=== PATIENT | male | born 1990 | race Two or more races ===

== ENCOUNTER 2020-12-15 17:24 | Inpatient (IN) | payer OTHER ==
[~2020-12-15] VITALS: Ht 182.9 cm; Wt 77.1 kg
[2020-12-15] MEDS ORDERED: Omnipaque-300 100ml vial INJ PRN (18:15)
[2020-12-15] MEDS ORDERED: Morphine Sulfate 4mg/ml Inj (IV USE ONLY) IVP ONE (18:15)
[2020-12-15] MEDS ORDERED: Ketorolac 30mg Inj IV ONE (18:15)
[2020-12-15 18:33] LABS: BASOPHILS % (AUTO) 1.7 % (0.0-2.0); EOSINOPHILS % (AUTO) 3.2 % (0.0-3.0); HEMATOCRIT 27.2 % (42.0-52.0); HEMOGLOBIN 9.2 G/DL (14.2-18.0); LYMPHOCYTES % (AUTO) 17.9 % (20.0-45.0); MEAN CORPUSCULAR VOLUME 105 FL (80-99); MONOCYTES % (AUTO) 7.9 % (1.0-10.0); NEUTROPHILS % (AUTO) 69.3 % (45.0-75.0); PLATELET COUNT 156 K/UL (150-450); RED BLOOD COUNT 2.59 M/UL (4.70-6.10); RED CELL DISTRIBUTION WIDTH 15.3 % (11.6-14.8); WHITE BLOOD COUNT 5.9 K/UL (4.8-10.8)
[2020-12-15 18:42] VITALS: BP 125/79
[2020-12-15 18:52] LABS: ANION GAP 8 mmol/L (5-15); BLOOD UREA NITROGEN 15 mg/dL (7-18); CALCIUM 8.3 MG/DL (8.5-10.1); CARBON DIOXIDE 23 MMOL/L (21-32); CHLORIDE 110 MMOL/L (98-107); CREATININE 0.8 MG/DL (0.55-1.30); POTASSIUM 3.9 MMOL/L (3.5-5.1); SODIUM 141 MMOL/L (136-145)
--- NOTE | 2020-12-15 18:58 | NUR ---
ED Nurse Note: [id number]: pt resting in bed, medicated, labs sent. rn requested urine 3x, pt unable to provide. urinal at bedside. pt pain decreased, comfort increased, lights diminished, blanket application. pt on continuous monitor. will continue to monitor.
[2020-12-15 19:02] LABS: ALANINE AMINOTRANSFERASE 34 U/L (12-78); ALBUMIN 2.4 G/DL (3.4-5.0); ALBUMIN/GLOBULIN RATIO 0.4 (1.0-2.7); ALKALINE PHOSPHATASE 125 U/L (46-116); ASPARTATE AMINO TRANSFERASE 75 U/L (15-37)
--- NOTE | 2020-12-15 19:15 | NUR ---
ED Nurse Note: Received report from DELIA Diaz. Pt to CT and back to room during report. Urine sample obtained. Pt denies any needs at this time.
--- NOTE | 2020-12-15 19:22 | Emergency Room Report ---
History of Present Illness General Chief Complaint: Abdominal Pain Source: Patient Present Illness HPI 30-year-old male presents for abdominal pain. X2 days. Pain is 8 out of 10, dull, nonradiating. Denies chest pain or shortness of breath. States he has had pancreatitis in the past and may have a stent in his either liver or gallbladder not sure. Was recently hospitalized in [place] for this. Denies fe vers or chills. No other aggravating relieving factors. 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 Patient History Past Medical History: other - Pancreatitis Past Surgical History: none Pertinent Family History: none Social History: Reports: alcohol use; Denies: smoking, drug use Immunizations: UTD Reviewed Nursing Documentation: PMH: Agreed; PSxH: Agreed Nursing Documentation-PMH Past Medical History: No History, Except For Review of Systems All Other Systems: negative except mentioned in HPI Physical Exam Vital Signs Date Time Temp Pulse Resp B/P (MAP) Pulse Ox O2 Delivery O2 Flow Rate FiO2 12/15/20 17:39 98.2 91 20 137/84 (101) 98 Room Air 12/15/20 18:09 100 Sp02 EP Interpretation: reviewed, normal General Appearance: no apparent distress, alert, GCS 15, non-toxic Head: normocephalic, atraumatic Eyes: bilateral eye normal inspection, bilateral eye PERRL ENT: hearing grossly normal, normal pharynx, no angioedema, normal voice Neck: full range of motion, supple/symm/no masses Respiratory: chest non-tender, lungs clear, normal breath sounds, speaking full sentences Cardiovascular #1: regular rate, rhythm, no edema Cardiovascular #2: 2+ carotid (R), 2+ carotid (L), 2+ radial (R), 2+ radial (L), 2+ dorsalis pedis (R), 2+ dorsalis pedis (L) Gastrointestinal: normal bowel sounds, soft, non-distended, guarding, tenderness Rectal: deferred Genitourinary: normal inspection, no CVA tenderness Musculoskeletal: back normal, normal range of motion, gait/station normal, non- tender Neurologic: alert, motor strength/tone normal, oriented x3, sensory intact, responsive, speech normal Psychiatric: judgement/insight normal, memory normal, mood/affect normal, no suicidal/homicidal ideation Reflexes: 3+ bicep (R), 3+ bicep (L), 3+ tricep (R), 3+ tricep (L), 3+ knee (R), 3+ knee (L) Skin: no rash Lymphatic: no adenopathy Medical Decision Making Diagnostic Impression: Primary Impression: Pancreatitis Qualified Codes: K85.90 - Acute pancreatitis without necrosis or infection, unspecified ER Course Hospital Course 30-year-old male presents to ED with abdominal pain Differential diagnoses include: BPH, cystitis, pyelonephritis, kidney stone Clinical course Patient placed on stretcher. potline monitor. After initial history and physical I ordered labs, IV fluids, UA, pain medication and CT scan Labs - no leukocytosis, Hb/Hct stable. electrolytes ok. Lipase > 2000, AST/ALT elevated. CT abdomen and pelvis - pancreatitis with pseudocyst Case discussed with Dr. Lott and he agreed to accept the patient to his service for further care and support I feel this is a highly complex case requiring extensive working including EKG/Rhythm strip, Xray/CT/US, Blood/urine lab work, repeat exams while in ED, and administration of strong opiates/narcotics for pain control, admission to hospital or close patient follow up. Diagnosis - pancreatitis Patient admitted to floor in serious condition Laboratory Tests Test 12/15/20 18:12 White Blood Count 5.9 K/UL (4.8-10.8) Red Blood Count 2.59 M/UL (4.70-6.10) L Hemoglobin 9.2 G/DL (14.2-18.0) L Hematocrit 27.2 % (42.0-52.0) L Mean Corpuscular Volume 105 FL (80-99) H Mean Corpuscular Hemoglobin 35.4 PG (27.0-31.0) H Mean Corpuscular Hemoglobin Concent 33.8 G/DL (32.0-36.0) Red Cell Distribution Width 15.3 % (11.6-14.8) H Platelet Count 156 K/UL (150-450) Mean Platelet Volume 6.5 FL (6.5-10.1) Neutrophils (%) (Auto) 69.3 % (45.0-75.0) Lymphocytes (%) (Auto) 17.9 % (20.0-45.0) L Monocytes (%) (Auto) 7.9 % (1.0-10.0) Eosinophils (%) (Auto) 3.2 % (0.0-3.0) H Basophils (%) (Auto) 1.7 % (0.0-2.0) Sodium Level 141 MMOL/L (136-145) Potassium Level 3.9 MMOL/L (3.5-5.1) Chloride Level 110 MMOL/L (98-107) H Carbon Dioxide Level 23 MMOL/L (21-32) Anion Gap 8 mmol/L (5-15) Blood Urea Nitrogen 15 mg/dL (7-18) Creatinine 0.8 MG/DL (0.55-1.30) Estimat Glomerular Filtration Rate > 60 mL/min (>60) Glucose Level 118 MG/DL (74-106) H Calcium Level 8.3 MG/DL (8.5-10.1) L Total Bilirubin 7.0 MG/DL (0.2-1.0) H Direct Bilirubin 5.0 MG/DL (0.0-0.3) H Aspartate Amino Transf (AST/SGOT) 75 U/L (15-37) H Alanine Aminotransferase (ALT/SGPT) 34 U/L (12-78) Alkaline Phosphatase 125 U/L (46-116) H Total Protein 7.8 G/DL (6.4-8.2) Albumin 2.4 G/DL (3.4-5.0) L Globulin 5.4 g/dL Albumin/Globulin Ratio 0.4 (1.0-2.7) L Lipase 2610 U/L (73-393) H CT/MRI/US Diagnostic Results CT/MRI/US Diagnostic Results : Imaging Test Ordered: CT A/P Impression Procedure: CT Abdomen Pelvis w/Contrast EXAM: CT Abdomen and Pelvis With Intravenous Contrast CLINICAL HISTORY: ABD PAIN TECHNIQUE: Axial computed tomography images of the abdomen and pelvis with intravenous contrast. CTDI is 5.4 mGy and DLP is 313 mGy-cm. One or more of the following dose reduction techniques were used: automated exposure control, adjustment of the mA and/or kV according to patient size, use of iterative reconstruction technique. COMPARISON: No previous studies. FINDINGS: Lung bases: Presumed subsegmental atelectasis at the lung bases. Pleural space: Moderate to large bilateral pleural effusions of uncertain etiology appeared Heart: Mild cardiomegaly. ABDOMEN: Liver: Fatty liver. Findings of portal hypertension. Gallbladder and bile ducts: There is diffuse wall thickening of the gallbladder best seen on axial image 33. No calcified stones. No ductal dilation. Pancreas: There is a 6.5 x 0.4 x 7.1 cm cystic lesion arising from the tail of the pancreas. Cystic neoplasm of the pancreas cannot be excluded. Other etiologies to consider her includes pseudocyst. Dilatation of the pancreatic duct best seen on series 5 image 31. Spleen: Splenomegaly. Adrenals: The adrenal glands are unremarkable. Kidneys and ureters: Both kidneys are shown to excrete contrast bilaterally without hydronephrosis appeared Nonspecific stranding about the perinephric spaces. Stomach and bowel: Moderate quantity of ingested material in the stomach. Moderate quantity of stool throughout the colon. No obstruction. No mucosal thickening. PELVIS: Appendix: No findings to suggest acute appendicitis. Bladder: Unremarkable. No mass. Reproductive: Unremarkable as visualized. ABDOMEN and PELVIS: Intraperitoneal space: Moderate ascites. Moderate quantity of free fluid within the pelvis. No free air. Bones/joints: No acute fracture. No dislocation. Soft tissues: Ischiorectal fat is clean. Mild to moderate anasarca. Vasculature: Flow is demonstrated within the celiac, SMA, the renal arteries, and the CHRISTA. Abdominal aorta is normal in caliber. Portal vein is patent. No abdominal aortic aneurysm. Lymph nodes: No pelvic or inguinal lymphadenopathy. IMPRESSION: 1. Cardiomegaly. 2. Large bilateral pleural effusions the lung bases. 3. Patchy airspace disease of the lung bases of uncertain etiology. 4. Fatty liver. 5. Portal hypertension. 6. Splenomegaly. 7. There is a large cystic structure apparently arising from the tail region of the pancreas differential etiologies which include cystic neoplasm of the pancreas versus pseudocyst. Moreover, there is prominence of the pancreatic duct. Magnetic resonance imaging of the abdomen with MRCP sequences is advised for further evaluation of the pancreas. 8. There is wall thickening of the gallbladder best seen on axial image 33. Ultrasound imaging of the right upper quadrant is advised to further assessment of the gallbladder, particularly given the patient's symptoms. 9. Anasarca diffusely including haziness of the mesentery diffusely. 10. Free fluid within the pelvis. 11. No bowel obstruction. Last Vital Signs Date Time Temp Pulse Resp B/P (MAP) Pulse Ox O2 Delivery O2 Flow Rate FiO2 12/15/20 18:42 75 18 125/79 100 Room Air 12/15/20 18:09 100 12/15/20 17:39 98.2 Status: improved Disposition: ADMITTED INPATIENT Condition: Serious Referrals: [facility],REFERRING (PCP) Eyad Giron MD Dec 15, 2020 19:22
--- NOTE | 2020-12-15 19:30 | Diagnostic Imaging Report ---
EXAM: CT Abdomen and Pelvis With Intravenous Contrast CLINICAL HISTORY: ABD PAIN TECHNIQUE: Axial computed tomography images of the abdomen and pelvis with intravenous contrast. CTDI is 5.4 mGy and DLP is 313 mGy-cm. One or more of the following dose reduction techniques were used: automated exposure control, adjustment of the mA and/or kV according to patient size, use of iterative reconstruction technique. COMPARISON: No previous studies. FINDINGS: Lung bases: Presumed subsegmental atelectasis at the lung bases. Pleural space: Moderate to large bilateral pleural effusions of uncertain etiology appeared Heart: Mild cardiomegaly. ABDOMEN: Liver: Fatty liver. Findings of portal hypertension. Gallbladder and bile ducts: There is diffuse wall thickening of the gallbladder best seen on axial image 33. No calcified stones. No ductal dilation. Pancreas: There is a 6.5 x 0.4 x 7.1 cm cystic lesion arising from the tail of the pancreas. Cystic neoplasm of the pancreas cannot be excluded. Other etiologies to consider her includes pseudocyst. Dilatation of the pancreatic duct best seen on series 5 image 31. Spleen: Splenomegaly. Adrenals: The adrenal glands are unremarkable. Kidneys and ureters: Both kidneys are shown to excrete contrast bilaterally without hydronephrosis appeared Nonspecific stranding about the perinephric spaces. Stomach and bowel: Moderate quantity of ingested material in the stomach. Moderate quantity of stool throughout the colon. No obstruction. No mucosal thickening. PELVIS: Appendix: No findings to suggest acute appendicitis. Bladder: Unremarkable. No mass. Reproductive: Unremarkable as visualized. ABDOMEN and PELVIS: Intraperitoneal space: Moderate ascites. Moderate quantity of free fluid within the pelvis. No free air. Bones/joints: No acute fracture. No dislocation. Soft tissues: Ischiorectal fat is clean. Mild to moderate anasarca. Vasculature: Flow is demonstrated within the celiac, SMA, the renal arteries, and the CHRISTA. Abdominal aorta is normal in caliber. Portal vein is patent. No abdominal aortic aneurysm. Lymph nodes: No pelvic or inguinal lymphadenopathy. IMPRESSION: 1. Cardiomegaly. 2. Large bilateral pleural effusions the lung bases. 3. Patchy airspace disease of the lung bases of uncertain etiology. 4. Fatty liver. 5. Portal hypertension. 6. Splenomegaly. 7. There is a large cystic structure apparently arising from the tail region of the pancreas differential etiologies which include cystic neoplasm of the pancreas versus pseudocyst. Moreover, there is prominence of the pancreatic duct. Magnetic resonance imaging of the abdomen with MRCP sequences is advised for further evaluation of the pancreas. 8. There is wall thickening of the gallbladder best seen on axial image 33. Ultrasound imaging of the right upper quadrant is advised to further assessment of the gallbladder, particularly given the patient's symptoms. 9. Anasarca diffusely including haziness of the mesentery diffusely. 10. Free fluid within the pelvis. 11. No bowel obstruction.
[2020-12-15 19:43] VITALS: BP 120/71
[2020-12-15 21:08] VITALS: BP 120/74
--- NOTE | 2020-12-15 21:20 | NUR ---
ED Nurse Note: Pt report given to DELIA Deutsch. Get reports pt will be going to room 419-1. Pt belonging inventory completed and signed.
--- NOTE | 2020-12-15 21:26 | NUR ---
TRANSFER TO FLOOR: Patient transferred to [facility] as ordered, per Dr. Giron. Report given to DELIA Deutsch. Belongings sent to floor with pt. Patient's belonging inventory completed and signed. Family and or S/O informed of transfer.
[2020-12-15 21:27] LABS: APPEARANCE,URINE CLEAR; BILIRUBIN, URINE NEGATIVE (NEGATIVE); GLUCOSE, URINE (UA) NEGATIVE (NEGATIVE); KETONES,URINE NEGATIVE (NEGATIVE); LEUKOCYTE ESTERASE ,URINE NEGATIVE (NEGATIVE); NITRITE,URINE NEGATIVE (NEGATIVE); PH,URINE 7 (4.5-8.0); PROTEIN,URINE NEGATIVE (NEGATIVE); UROBILINOGEN,URINE NORMAL MG/DL (0.0-1.0)
--- NOTE | 2020-12-15 21:28 | Diagnostic Imaging Report ---
EXAM: US Abdomen Complete CLINICAL HISTORY: ABD PAIN TECHNIQUE: Real-time ultrasound of the abdomen with image documentation. COMPARISON: CT abdomen and pelvis 12/15/2020 FINDINGS: Liver: Unremarkable. No mass. No intrahepatic bile duct dilation. Patent portal vein. Gallbladder: Contracted gallbladder with mucosal thickening. No stones. Common bile duct: Unremarkable as visualized. No stones. Pancreas: Cystic structure in the tail of the pancreas measuring 6 x 6 cm. Mild dilatation of the pancreatic duct measuring 5 mm. Kidneys: Unremarkable. No stones. No solid mass. No hydronephrosis. Spleen: Splenomegaly. Aorta: Unremarkable. No aneurysm. Inferior vena cava: Unremarkable. Free fluid: Small volume ascites. Pleural space: Bilateral pleural effusions. IMPRESSION: 1. Cystic structure in the tail of the pancreas measuring 6 x 6 cm. Likely a pseudocyst. 2. Mild dilatation of the pancreatic duct measuring 5 mm. 3. Contracted gallbladder with mucosal thickening. No stones. 4. Small volume ascites. 5. Splenomegaly. 6. Bilateral pleural effusions.
[2020-12-15 21:29] LABS: COLOR,URINE YELLOW
[2020-12-15 21:55] VITALS: BP 122/81
--- NOTE | 2020-12-15 21:55 | NUR ---
NURSE NOTES: Pt arrived on unit via wheelchair, was able to get up and ambulate to the bed to get himself situated with steady gate. Vital signs are stable. Pt is alert and oriented x 4 with no acute s/s of distress at the moment. pt is complaining of pain 7/10 at the moment, will endorse to the for admission orders. Bed low and locked, pt oriented to the unit and to his room, call light in reach, no home meds brought to the hospital, belongings reconciled.
--- NOTE | 2020-12-15 21:56 | NUR ---
NURSE NOTES: Received report from DELIA Thomas. going to room 414-2
[2020-12-15] MEDS: Morphine Sulfate 2mg/ml Inj(IV/IM USE ONLY) IVP PRN (23:35)
[2020-12-15 23:52] VITALS: BP 120/80
--- NOTE | 2020-12-16 00:14 | NUR ---
NURSE NOTES: pt vital signs stable at this time, pt given morphine for pain. pt currently asleep. no acute s/s of distress.
[2020-12-16] MEDS: Morphine Sulfate 2mg/ml Inj(IV/IM USE ONLY) IVP PRN ×5 (03:38→21:37)
[2020-12-16 04:00] VITALS: BP 125/76
--- NOTE | 2020-12-16 04:30 | NUR ---
NURSE NOTES: pt vital signs are stable. no co pain, sleeping after pain medication provided. pt in no acute distress.
--- NOTE | 2020-12-16 07:11 | NUR ---
NURSE HAND-OFF: Important Events on Shift: new admission, pain management Patient Status: stable Diet: NPO Pending Orders: NA Pending Results/Labs:NA Pending MD notification:NA Latest Vital Signs: Temperature 97.5 , Pulse 76 , B/P 125 /76 , Respiratory Rate 17 , O2 SAT 97 , Room Air, O2 Flow Rate . Vital Sign Comment: stable through the shift Latest Fragoso Fall Score: 35 Fall Risk: Medium Risk Safety Measures: Call light Within Reach, Bed Alarm , Side Rails Side Rails x2, Bed position Low and Locked. Fall Precautions: Patient Fall Education Report given to DELIA Li.
--- NOTE | 2020-12-16 07:20 | NUR ---
NURSE NOTES: Report received from Franco RN, rounds made. Patient resting in semi-fowlers position in bed. AOx4, calm on RA. Complains of abdominal pain 8, will medicate as ordered. Remains NPO, ice chips provided. IV NS at 100 ml/hr infusing to LFA, site asymptomatic. Call light in reach, bed in lowest position,will continue to monitor.
[2020-12-16 08:00] VITALS: BP 121/79
--- NOTE | 2020-12-16 11:43 | Consultation ---
History of Present Illness General Date patient seen: Dec 16, 2020 Reason for Hospitalization: Abdominal Pain Present Illness HPI 30M with history of heavy etoh use and known alcohol related liver insufficiency presented to [facility] [place] for evaluation of abdominal pain for 2 days. states he use to live in [place] and was told he has liver problems. has been jaundice and ill for a long time. stopped drinking 2 months ago. pain cramping abd pain generalized 8/10. feels bloated. decreased appetite. +flatus and BM CT with pancreatic cyst. surgery called to evaluate and assist with care. Allergies: Coded Allergies: No Known Allergies (Unverified , 12/15/20) COVID-19 Screening Contact w/high risk pt: No Experienced COVID-19 symptoms?: No Patient History History Provided By: Patient Healthcare decision maker Resuscitation status Advanced Directive on File Past Medical/Surgical History Past Medical/Surgical History: (1) Pancreatitis Review of Systems Review of Symptoms General ROS: no weight loss or fever Psychological ROS: no depression or mood changes, no memory loss Ophthalmic ROS: no visual changes or eye irritation ENT ROS: no nasal congestion, hearing loss, dizziness Allergy and Immunology ROS: no allergic symptoms or urticaria Hematological and Lymphatic ROS: no swollen glands, unusual bleeding or bruising Endocrine ROS: no polyuria, polydipsia, weight changes, temperature intolerance Respiratory ROS: no cough, shortness of breath, or wheezing Cardiovascular ROS: no chest pain or dyspnea on exertion Gastrointestinal ROS: + abdominal pain, bright red blood in stool. Musculoskeletal ROS: no myalgias or arthralgias Neurological ROS: no TIA or stroke symptoms Dermatological ROS: no new or changing skin lesions, rashes or pruritis Physical Exam Physical Exam General appearance: alert, cooperative, no distress, appears stated age Head: Normocephalic, without obvious abnormality, atraumatic Eyes: conjunctivae/corneas clear. PERRL, EOM's intact. Fundi benign, jaundice sclera Throat: Lips, mucosa, and tongue normal. Teeth and gums normal Neck: supple, symmetrical, trachea midline, no adenopathy, thyroid: not enlarged, symmetric, no tenderness/mass/nodules, no carotid bruit and no JVD Lungs: clear to auscultation bilaterally Heart: regular rate and rhythm, S1, S2 normal, no murmur, click, rub or gallop Abdomen: soft, non-tender. Bowel sounds normal. No masses, no organomegaly Extremities: extremities normal, atraumatic, no cyanosis or edema Pulses: 2+ and symmetric Skin: Skin color, texture, turgor normal. No rashes or lesions jaundice Neurologic: Grossly normal Last 24 Hour Vital Signs Date Time Temp Pulse Resp B/P (MAP) Pulse Ox O2 Delivery O2 Flow Rate FiO2 12/16/20 09:00 Room Air 12/16/20 08:00 98.6 71 16 121/79 (93) 98 12/16/20 04:00 97.5 76 17 125/76 (92) 97 12/15/20 23:52 97.7 68 18 120/80 (93) 98 12/15/20 22:34 Room Air 12/15/20 21:55 97.5 72 16 122/81 (95) 98 12/15/20 21:08 82 16 120/74 100 Room Air 12/15/20 19:43 89 17 120/71 100 Room Air 12/15/20 18:42 75 18 125/79 100 Room Air 12/15/20 18:09 81 22 Room Air 100 12/15/20 17:39 98.2 91 20 137/84 (101) 98 Room Air Intake and Output 12/15/20 12/16/20 19:00 07:00 Intake Total 600 ml Output Total 100 ml Balance 500 ml Intake Oral 0 ml IV Total 600 ml Output Urine Total 100 ml # Voids 4 Laboratory Tests Test 12/15/20 18:12 12/15/20 20:40 White Blood Count 5.9 K/UL (4.8-10.8) Red Blood Count 2.59 M/UL (4.70-6.10) L Hemoglobin 9.2 G/DL (14.2-18.0) L Hematocrit 27.2 % (42.0-52.0) L Mean Corpuscular Volume 105 FL (80-99) H Mean Corpuscular Hemoglobin 35.4 PG (27.0-31.0) H Mean Corpuscular Hemoglobin Concent 33.8 G/DL (32.0-36.0) Red Cell Distribution Width 15.3 % (11.6-14.8) H Platelet Count 156 K/UL (150-450) Mean Platelet Volume 6.5 FL (6.5-10.1) Neutrophils (%) (Auto) 69.3 % (45.0-75.0) Lymphocytes (%) (Auto) 17.9 % (20.0-45.0) L Monocytes (%) (Auto) 7.9 % (1.0-10.0) Eosinophils (%) (Auto) 3.2 % (0.0-3.0) H Basophils (%) (Auto) 1.7 % (0.0-2.0) Sodium Level 141 MMOL/L (136-145) Potassium Level 3.9 MMOL/L (3.5-5.1) Chloride Level 110 MMOL/L (98-107) H Carbon Dioxide Level 23 MMOL/L (21-32) Anion Gap 8 mmol/L (5-15) Blood Urea Nitrogen 15 mg/dL (7-18) Creatinine 0.8 MG/DL (0.55-1.30) Estimat Glomerular Filtration Rate > 60 mL/min (>60) Glucose Level 118 MG/DL (74-106) H Calcium Level 8.3 MG/DL (8.5-10.1) L Total Bilirubin 7.0 MG/DL (0.2-1.0) H Direct Bilirubin 5.0 MG/DL (0.0-0.3) H Aspartate Amino Transf (AST/SGOT) 75 U/L (15-37) H Alanine Aminotransferase (ALT/SGPT) 34 U/L (12-78) Alkaline Phosphatase 125 U/L (46-116) H Total Protein 7.8 G/DL (6.4-8.2) Albumin 2.4 G/DL (3.4-5.0) L Globulin 5.4 g/dL Albumin/Globulin Ratio 0.4 (1.0-2.7) L Lipase 2610 U/L (73-393) H Urine Color Yellow Urine Appearance Clear Urine pH 7 (4.5-8.0) Urine Specific Eldred 1.005 (1.005-1.035) Urine Protein Negative (NEGATIVE) Urine Glucose (UA) Negative (NEGATIVE) Urine Ketones Negative (NEGATIVE) Urine Blood Negative (NEGATIVE) Urine Nitrite Negative (NEGATIVE) Urine Bilirubin Negative (NEGATIVE) Urine Urobilinogen Normal MG/DL (0.0-1.0) Urine Leukocyte Esterase Negative (NEGATIVE) Height (Feet): 6 Height (Inches): 0.00 Weight (Pounds): 170 Medications Current Medications Medications (Trade) Dose Ordered Sig/Viji Route PRN Reason Start Time Stop Time Status Last Admin Dose Admin Acetaminophen (Tylenol) 650 mg Q4H PRN ORAL Temp >100.5 12/15/20 22:45 01/14/21 22:44 Iohexol (OMNIPAQUE-300 100ml) 100 ml NOW PRN INJ Radiology Procedure 12/15/20 18:15 12/17/20 18:14 Levofloxacin 100 ml @ 100 mls/hr Q24H IVPB 12/16/20 00:00 12/23/20 00:00 12/15/20 23:19 Morphine Sulfate (Morphine Sulfate) 1 mg Q4H PRN IVP for pain 12/15/20 22:45 12/22/20 22:44 12/16/20 08:22 Ondansetron HCl (Zofran) 4 mg Q6H PRN IVP Nausea & Vomiting 12/15/20 22:45 01/14/21 22:44 Sodium Chloride 1,000 ml @ 100 mls/hr Q10H IV 12/15/20 22:45 01/14/21 22:44 12/15/20 23:12 Assessment/Plan Problem List: (1) Pancreatitis Assessment & Plan: 30M with abd pain and pancreatitis liver insufficiency related to prior heavy etoh bili noted lft's noted lipase noted ct and us reviewed npo iv fluids gi eval no acute surgical intervention cont alcohol cessation consider liver center to eval for transplant thank you ABDOMEN: Liver: Fatty liver. Findings of portal hypertension. Gallbladder and bile ducts: There is diffuse wall thickening of the gallbladder best seen on axial image 33. No calcified stones. No ductal dilation. Pancreas: There is a 6.5 x 0.4 x 7.1 cm cystic lesion arising from the tail of the pancreas. Cystic neoplasm of the pancreas cannot be excluded. Other etiologies to consider her includes pseudocyst. Dilatation of the pancreatic duct best seen on series 5 image 31. Spleen: Splenomegaly. Adrenals: The adrenal glands are unremarkable. Kidneys and ureters: Both kidneys are shown to excrete contrast bilaterally without hydronephrosis appeared Nonspecific stranding about the perinephric spaces. Stomach and bowel: Moderate quantity of ingested material in the stomach. Moderate quantity of stool throughout the colon. No obstruction. No mucosal thickening. PELVIS: Appendix: No findings to suggest acute appendicitis. Bladder: Unremarkable. No mass. Reproductive: Unremarkable as visualized. ABDOMEN and PELVIS: Intraperitoneal space: Moderate ascites. Moderate quantity of free fluid within the pelvis. No free air. Bones/joints: No acute fracture. No dislocation. Soft tissues: Ischiorectal fat is clean. Mild to moderate anasarca. Vasculature: Flow is demonstrated within the celiac, SMA, the renal arteries, and the CHRISTA. Abdominal aorta is normal in caliber. Portal vein is patent. No abdominal aortic aneurysm. Lymph nodes: No pelvic or inguinal lymphadenopathy. IMPRESSION: 1. Cardiomegaly. 2. Large bilateral pleural effusions the lung bases. 3. Patchy airspace disease of the lung bases of uncertain etiology. 4. Fatty liver. 5. Portal hypertension. 6. Splenomegaly. 7. There is a large cystic structure apparently arising from the tail region of the pancreas differential etiologies which include cystic neoplasm of the pancreas versus pseudocyst. Moreover, there is prominence of the pancreatic duct. Magnetic resonance imaging of the abdomen with MRCP sequences is advised for further evaluation of the pancreas. 8. There is wall thickening of the gallbladder best seen on axial image 33. Ultrasound imaging of the right upper quadrant is advised to further assessment of the gallbladder, particularly given the patient's symptoms. 9. Anasarca diffusely including haziness of the mesentery diffusely. 10. Free fluid within the pelvis. 11. No bowel obstruction. ICD Codes: K85.90 - Acute pancreatitis without necrosis or infection, unspecified SNOMED: [id number] Didier Mittal Dec 16, 2020 11:43
[2020-12-16 12:00] VITALS: BP 117/76
--- NOTE | 2020-12-16 12:28 | NUR ---
NURSE NOTES: Patient started on clear liquids for lunch, tolerated well no NV.
[2020-12-16 17:15] VITALS: BP 127/76
--- NOTE | 2020-12-16 18:51 | NUR ---
NURSE HAND-OFF: Important Events on Shift:Started Clear liquid diet, Medicated with MS 1 mg IV x3 Patient Status: stable Diet: Clear Liquids Pending Orders: labs AM Pending Results/Labs:see order list Pending MD notification:none Latest Vital Signs: Temperature 99.5 , Pulse 83 , B/P 127 /76 , Respiratory Rate 20 , O2 SAT 98 , Room Air, O2 Flow Rate . Vital Sign Comment: Monitor temperature Latest Frgaoso Fall Score: 35 Fall Risk: Medium Risk Safety Measures: Call light Within Reach, Bed Alarm , Side Rails Side Rails x2, Bed position Low and Locked. Fall Precautions: Yellow Socks Door Sign Patient Fall Education Report given to Destiny LIN.
--- NOTE | 2020-12-16 19:50 | NUR ---
NURSE NOTES: Patient in bed, awake and alert x4. No distress or SOB on room air. Patient reports abdominal pain at this time; will administer pain medication as ordered. Clear liquid diet. IV intact and patent. Call light in reach. Bed locked and in lowest position. Will continue plan of care.
[2020-12-16 20:00] VITALS: BP 115/75
--- NOTE | 2020-12-16 21:31 | General Progress Note ---
Subjective Allergies: Coded Allergies: No Known Allergies (Unverified , 12/15/20) Objective Last 24 Hour Vital Signs Date Time Temp Pulse Resp B/P (MAP) Pulse Ox O2 Delivery O2 Flow Rate FiO2 12/16/20 20:43 Room Air 12/16/20 20:00 98.3 76 16 115/75 (88) 99 12/16/20 17:15 99.5 83 20 127/76 (93) 98 12/16/20 12:00 98.1 73 18 117/76 (90) 98 12/16/20 09:00 Room Air 12/16/20 08:00 98.6 71 16 121/79 (93) 98 12/16/20 04:00 97.5 76 17 125/76 (92) 97 12/15/20 23:52 97.7 68 18 120/80 (93) 98 12/15/20 22:34 Room Air 12/15/20 21:55 97.5 72 16 122/81 (95) 98 Intake and Output 12/15/20 12/16/20 19:00 07:00 Intake Total 600 ml Output Total 100 ml Balance 500 ml Intake Oral 0 ml IV Total 600 ml Output Urine Total 100 ml # Voids 4 Height (Feet): 6 Height (Inches): 0.00 Weight (Pounds): 170 Assessment/Plan Assessment/Plan: Assessment - Chronic alcohol abuse - h/o EtOH pancreatitis with pseudocyst - Recurrent pancreatitis off of EtOH - Elevated bilirubin, presumed from EtOH hepatitis - anemia Recommendations - NPO - IVF - MVI - Thiamine - Follow labs - will consider MRCP or ERCP Thank you MD Agustina See Payman MD Dec 16, 2020 21:31
[2020-12-16 23:29] VITALS: BP 120/72
[2020-12-17] MEDS: Morphine Sulfate 2mg/ml Inj(IV/IM USE ONLY) IVP PRN ×4 (02:23→21:08)
[2020-12-17 04:00] VITALS: BP 118/78
--- NOTE | 2020-12-17 06:50 | NUR ---
NURSE HAND-OFF: Important Events on Shift: Pain control; no N/V this shift Patient Status: Stable Diet: Clear liquid Pending Orders: N/A Pending Results/Labs: AM labs Pending MD notification: N/A Latest Vital Signs: Temperature 98.2 , Pulse 80 , B/P 118 /78 , Respiratory Rate 16 , O2 SAT 100 , Room Air, O2 Flow Rate . Vital Sign Comment: N/A Latest Fragoso Fall Score: 35 Fall Risk: Medium Risk Safety Measures: Call light Within Reach, Bed Alarm , Side Rails Side Rails x2, Bed position Low and Locked. Fall Precautions: Yellow Socks Door Sign Patient Fall Education Addendum: 12/17/20 at 0725 by BRIAN LANTIGUA RN Report given to DELIA Gray
--- NOTE | 2020-12-17 07:15 | NUR ---
NURSE NOTES: Received patient resting comfortably in bed. patient AOx4, on RA. no sign of distress, IV NS at 100 ml/hr infusing to LFA, site asymptomatic.on fall precaution, Call light in reach, bed in lowest position,will continue to monitor. deepali dove
[2020-12-17 07:53] LABS: BASOPHILS % (AUTO) 1.8 % (0.0-2.0); EOSINOPHILS % (AUTO) 4.3 % (0.0-3.0); HEMATOCRIT 26.6 % (42.0-52.0); HEMOGLOBIN 8.7 G/DL (14.2-18.0); LYMPHOCYTES % (AUTO) 24.5 % (20.0-45.0); MEAN CORPUSCULAR VOLUME 105 FL (80-99); MONOCYTES % (AUTO) 9.4 % (1.0-10.0); PLATELET COUNT 157 K/UL (150-450); RED BLOOD COUNT 2.53 M/UL (4.70-6.10); RED CELL DISTRIBUTION WIDTH 13.6 % (11.6-14.8); WHITE BLOOD COUNT 4.1 K/UL (4.8-10.8)
[2020-12-17 08:03] LABS: INR 1.7 (0.9-1.1)
[2020-12-17 08:06] VITALS: BP 124/77
[2020-12-17 08:20] LABS: ALANINE AMINOTRANSFERASE 28 U/L (12-78); ALBUMIN 1.9 G/DL (3.4-5.0); ALBUMIN/GLOBULIN RATIO 0.4 (1.0-2.7); ALKALINE PHOSPHATASE 90 U/L (46-116); ANION GAP 7 mmol/L (5-15); ASPARTATE AMINO TRANSFERASE 59 U/L (15-37); BILIRUBIN,TOTAL 5.9 MG/DL (0.2-1.0); BLOOD UREA NITROGEN 7 mg/dL (7-18); CARBON DIOXIDE 22 MMOL/L (21-32); CHLORIDE 113 MMOL/L (98-107); SODIUM 142 MMOL/L (136-145)
[2020-12-17 08:53] LABS: CALCIUM 7.7 MG/DL (8.5-10.1); CREATININE 0.7 MG/DL (0.55-1.30)
[2020-12-17 09:02] LABS: AMYLASE 528 U/L (25-115)
[2020-12-17 09:05] LABS: BILIRUBIN,DIRECT 4.2 MG/DL (0.0-0.3)
--- NOTE | 2020-12-17 09:30 | General Progress Note ---
Subjective Date patient seen: Dec 17, 2020 Cardiovascular: Reports: no symptoms Respiratory: Reports: no symptoms Gastrointestinal/Abdominal: Reports: abdominal pain Neurologic/Psychiatric: Reports: no symptoms Endocrine: Reports: no symptoms Hematologic/Lymphatic: Reports: no symptoms Allergies: Coded Allergies: No Known Allergies (Unverified , 12/15/20) Subjective c/o pain controllewd with pain meds Objective Last 24 Hour Vital Signs Date Time Temp Pulse Resp B/P (MAP) Pulse Ox O2 Delivery O2 Flow Rate FiO2 12/17/20 08:30 Room Air 12/17/20 08:06 96.8 87 20 124/77 (93) 93 12/17/20 04:00 98.2 80 16 118/78 (91) 100 12/16/20 23:29 98.5 70 15 120/72 (88) 99 12/16/20 20:43 Room Air 12/16/20 20:00 98.3 76 16 115/75 (88) 99 12/16/20 17:15 99.5 83 20 127/76 (93) 98 12/16/20 12:00 98.1 73 18 117/76 (90) 98 Intake and Output 12/16/20 12/17/20 19:00 07:00 Intake Total 2200 ml 1060 ml Balance 2200 ml 1060 ml Intake Oral 1200 ml 960 ml IV Total 1000 ml 100 ml # Voids 3 5 Laboratory Tests 12/17/20 05:35: Prealbumin [Pending] 12/17/20 07:05: White Blood Count 4.1L, Red Blood Count 2.53L, Hemoglobin 8.7L, Hematocrit 26.6L , Mean Corpuscular Volume 105H, Mean Corpuscular Hemoglobin 34.4H, Mean Corpuscular Hemoglobin Concent 32.7, Red Cell Distribution Width 13.6, Platelet Count 157, Mean Platelet Volume 5.4L, Neutrophils (%) (Auto) 60.0, Lymphocytes (%) (Auto) 24.5, Monocytes (%) (Auto) 9.4, Eosinophils (%) (Auto) 4.3H, Basophils (%) (Auto) 1.8, Erythrocyte Sedimentation Rate 48H, Prothrombin Time 18.0H, Prothromb Time International Ratio 1.7H, Activated Partial Thromboplast Time 35H, Sodium Level 142, Potassium Level 4.0, Chloride Level 113H, Carbon Dioxide Level 22, Anion Gap 7, Blood Urea Nitrogen 7, Creatinine 0.7, Estimat Glomerular Filtration Rate > 60, Glucose Level 82, Calcium Level 7.7L, Total Bilirubin 5.9H, Direct Bilirubin 4.2H, Aspartate Amino Transf (AST/SGOT) 59H, Alanine Aminotransferase (ALT/SGPT) 28, Alkaline Phosphatase 90, C-Reactive Protein, Quantitative 0.5, Total Protein 6.3L, Albumin 1.9L, Globulin 4.4, Albumin/Globulin Ratio 0.4L, Amylase Level 528*H, Lipase > 2000H Height (Feet): 6 Height (Inches): 0.00 Weight (Pounds): 170 General Appearance: alert EENT: PERRL/EOMI Neck: supple Cardiovascular: regular rhythm Respiratory/Chest: normal breath sounds Abdomen: soft, tender, hepatomegaly Pelvis: normal external exam Extremities: non-tender Assessment/Plan Assessment/Plan: ac pancreatitis anemia hx etoh abused add po pain med advance diet gi on consult dc ivf Charlie Lott MD Dec 17, 2020 09:30
[2020-12-17] MEDS: traMADol 50mg tab ORAL PRN (10:10)
[2020-12-17 12:00] VITALS: BP 155/84
--- NOTE | 2020-12-17 12:26 | Surgery Progress Note ---
Surgery Progress Note Subjective Additional Comments no complaints no n/v tolerating liquids labs noted Objective Last 24 Hour Vital Signs Date Time Temp Pulse Resp B/P (MAP) Pulse Ox O2 Delivery O2 Flow Rate FiO2 12/17/20 12:00 98.0 82 19 155/84 (107) 95 12/17/20 08:30 Room Air 12/17/20 08:06 96.8 87 20 124/77 (93) 93 12/17/20 04:00 98.2 80 16 118/78 (91) 100 12/16/20 23:29 98.5 70 15 120/72 (88) 99 12/16/20 20:43 Room Air 12/16/20 20:00 98.3 76 16 115/75 (88) 99 12/16/20 17:15 99.5 83 20 127/76 (93) 98 I&O Intake and Output 12/16/20 12/17/20 18:59 06:59 Intake Total 2300 ml 960 ml Balance 2300 ml 960 ml Intake Oral 1200 ml 960 ml IV Total 1100 ml # Voids 3 5 Dressing: other Wound: other Cardiovascular: RSR Respiratory: clear Abdomen: soft, distended, non-tender, other Extremities: no edema, no tenderness, no cyanosis Laboratory Tests Test 12/17/20 05:35 12/17/20 07:05 12/17/20 12:00 Prealbumin Pending Pending White Blood Count 4.1 K/UL (4.8-10.8) L Red Blood Count 2.53 M/UL (4.70-6.10) L Hemoglobin 8.7 G/DL (14.2-18.0) L Hematocrit 26.6 % (42.0-52.0) L Mean Corpuscular Volume 105 FL (80-99) H Mean Corpuscular Hemoglobin 34.4 PG (27.0-31.0) H Mean Corpuscular Hemoglobin Concent 32.7 G/DL (32.0-36.0) Red Cell Distribution Width 13.6 % (11.6-14.8) Platelet Count 157 K/UL (150-450) Mean Platelet Volume 5.4 FL (6.5-10.1) L Neutrophils (%) (Auto) 60.0 % (45.0-75.0) Lymphocytes (%) (Auto) 24.5 % (20.0-45.0) Monocytes (%) (Auto) 9.4 % (1.0-10.0) Eosinophils (%) (Auto) 4.3 % (0.0-3.0) H Basophils (%) (Auto) 1.8 % (0.0-2.0) Erythrocyte Sedimentation Rate 48 MM/HR (0-15) H Prothrombin Time 18.0 SEC (9.30-11.50) H Prothromb Time International Ratio 1.7 (0.9-1.1) H Activated Partial Thromboplast Time 35 SEC (23-33) H Sodium Level 142 MMOL/L (136-145) Potassium Level 4.0 MMOL/L (3.5-5.1) Chloride Level 113 MMOL/L (98-107) H Carbon Dioxide Level 22 MMOL/L (21-32) Anion Gap 7 mmol/L (5-15) Blood Urea Nitrogen 7 mg/dL (7-18) Creatinine 0.7 MG/DL (0.55-1.30) Estimat Glomerular Filtration Rate > 60 mL/min (>60) Glucose Level 82 MG/DL (74-106) Calcium Level 7.7 MG/DL (8.5-10.1) L Total Bilirubin 5.9 MG/DL (0.2-1.0) H Direct Bilirubin 4.2 MG/DL (0.0-0.3) H Aspartate Amino Transf (AST/SGOT) 59 U/L (15-37) H Alanine Aminotransferase (ALT/SGPT) 28 U/L (12-78) Alkaline Phosphatase 90 U/L (46-116) C-Reactive Protein, Quantitative 0.5 mg/dL (0.00-0.90) Total Protein 6.3 G/DL (6.4-8.2) L Albumin 1.9 G/DL (3.4-5.0) L Globulin 4.4 g/dL Albumin/Globulin Ratio 0.4 (1.0-2.7) L Amylase Level 528 U/L (25-115) *H Lipase > 2000 U/L (73-393) H Lactic Acid Level Pending Plan Problems: (1) Pancreatitis Assessment & Plan: 30M with abd pain and pancreatitis liver insufficiency related to prior heavy etoh bili noted lft's noted lipase noted ct and us reviewed npo iv fluids gi eval no acute surgical intervention cont alcohol cessation consider liver center to eval for transplant thank you ABDOMEN: Liver: Fatty liver. Findings of portal hypertension. Gallbladder and bile ducts: There is diffuse wall thickening of the gallbladder best seen on axial image 33. No calcified stones. No ductal dilation. Pancreas: There is a 6.5 x 0.4 x 7.1 cm cystic lesion arising from the tail of the pancreas. Cystic neoplasm of the pancreas cannot be excluded. Other etiologies to consider her includes pseudocyst. Dilatation of the pancreatic duct best seen on series 5 image 31. Spleen: Splenomegaly. Adrenals: The adrenal glands are unremarkable. Kidneys and ureters: Both kidneys are shown to excrete contrast bilaterally without hydronephrosis appeared Nonspecific stranding about the perinephric spaces. Stomach and bowel: Moderate quantity of ingested material in the stomach. Moderate quantity of stool throughout the colon. No obstruction. No mucosal thickening. PELVIS: Appendix: No findings to suggest acute appendicitis. Bladder: Unremarkable. No mass. Reproductive: Unremarkable as visualized. ABDOMEN and PELVIS: Intraperitoneal space: Moderate ascites. Moderate quantity of free fluid within the pelvis. No free air. Bones/joints: No acute fracture. No dislocation. Soft tissues: Ischiorectal fat is clean. Mild to moderate anasarca. Vasculature: Flow is demonstrated within the celiac, SMA, the renal arteries, and the CHRISTA. Abdominal aorta is normal in caliber. Portal vein is patent. No abdominal aortic aneurysm. Lymph nodes: No pelvic or inguinal lymphadenopathy. IMPRESSION: 1. Cardiomegaly. 2. Large bilateral pleural effusions the lung bases. 3. Patchy airspace disease of the lung bases of uncertain etiology. 4. Fatty liver. 5. Portal hypertension. 6. Splenomegaly. 7. There is a large cystic structure apparently arising from the tail region of the pancreas differential etiologies which include cystic neoplasm of the pancreas versus pseudocyst. Moreover, there is prominence of the pancreatic duct. Magnetic resonance imaging of the abdomen with MRCP sequences is advised for further evaluation of the pancreas. 8. There is wall thickening of the gallbladder best seen on axial image 33. Ultrasound imaging of the right upper quadrant is advised to further assessment of the gallbladder, particularly given the patient's symptoms. 9. Anasarca diffusely including haziness of the mesentery diffusely. 10. Free fluid within the pelvis. 11. No bowel obstruction. Benyamini,Didier Dec 17, 2020 12:26
--- NOTE | 2020-12-17 15:00 | NUR ---
NURSE NOTES: RECEIVED PATIENT A/A/OX4 IN BED ON HIGH SMART'S POSITION. CALM AND COMFORTABLE. DENIES OF PAIN/DISCOMFORT NOTED. ABLE TO MAKE NEEDS KNOWN. NO ACUTE CARDIO-RESP DISTRESS NOTED. PIV PATENT AND INTACT. AMBULATES WITH STEADY GAIT. KEPT BED IN THE LOWEST POSITION. SIDERAILS ARE UPX3. CALL LIGHT WITHIN REACH. BED ALARM ACTIVATED AND LOCK ENGAGED. WILL CONT TO MONITOR.
--- NOTE | 2020-12-17 15:30 | NUR ---
nurse notes endorsed to Shy CIPHER EXPERT accordingly, for continuity of care deepali dove
[2020-12-17 15:59] VITALS: BP 120/74
--- NOTE | 2020-12-17 18:26 | General Progress Note ---
Subjective Allergies: Coded Allergies: No Known Allergies (Unverified , 12/15/20) Subjective Feels better less abd pain on clears LFT lower Objective Last 24 Hour Vital Signs Date Time Temp Pulse Resp B/P (MAP) Pulse Ox O2 Delivery O2 Flow Rate FiO2 12/17/20 15:59 97.7 85 18 120/74 (89) 94 12/17/20 15:05 98.0 12/17/20 12:00 98.0 82 19 155/84 (107) 95 12/17/20 08:30 Room Air 12/17/20 08:06 96.8 87 20 124/77 (93) 93 12/17/20 04:00 98.2 80 16 118/78 (91) 100 12/16/20 23:29 98.5 70 15 120/72 (88) 99 12/16/20 20:43 Room Air 12/16/20 20:00 98.3 76 16 115/75 (88) 99 Intake and Output 12/16/20 12/17/20 19:00 07:00 Intake Total 2200 ml 1060 ml Balance 2200 ml 1060 ml Intake Oral 1200 ml 960 ml IV Total 1000 ml 100 ml # Voids 3 5 Laboratory Tests 12/17/20 05:35: Prealbumin [Pending] 12/17/20 07:05: White Blood Count 4.1L, Red Blood Count 2.53L, Hemoglobin 8.7L, Hematocrit 26.6L , Mean Corpuscular Volume 105H, Mean Corpuscular Hemoglobin 34.4H, Mean Corpuscular Hemoglobin Concent 32.7, Red Cell Distribution Width 13.6, Platelet Count 157, Mean Platelet Volume 5.4L, Neutrophils (%) (Auto) 60.0, Lymphocytes (%) (Auto) 24.5, Monocytes (%) (Auto) 9.4, Eosinophils (%) (Auto) 4.3H, Basophils (%) (Auto) 1.8, Erythrocyte Sedimentation Rate 48H, Prothrombin Time 18.0H, Prothromb Time International Ratio 1.7H, Activated Partial Thromboplast Time 35H, Sodium Level 142, Potassium Level 4.0, Chloride Level 113H, Carbon Dioxide Level 22, Anion Gap 7, Blood Urea Nitrogen 7, Creatinine 0.7, Estimat Glomerular Filtration Rate > 60, Glucose Level 82, Calcium Level 7.7L, Total Bilirubin 5.9H, Direct Bilirubin 4.2H, Aspartate Amino Transf (AST/SGOT) 59H, Alanine Aminotransferase (ALT/SGPT) 28, Alkaline Phosphatase 90, C-Reactive Protein, Quantitative 0.5, Total Protein 6.3L, Albumin 1.9L, Globulin 4.4, Albumin/Globulin Ratio 0.4L, Amylase Level 528*H, Lipase > 2000H 12/17/20 12:00: Lactic Acid Level 1.10 Height (Feet): 6 Height (Inches): 0.00 Weight (Pounds): 170 Objective WDWN man NCAT supple CTA RRR abd soft, mild epigastric TTP no edema Assessment/Plan Assessment/Plan: Assessment - Chronic alcohol abuse - h/o EtOH pancreatitis with pseudocyst - Recurrent pancreatitis off of EtOH - Elevated bilirubin, presumed from EtOH hepatitis - anemia Recommendations - clears - IVF - MVI - Thiamine - Follow labs - MRCP tomorrow Ankit Berrios MD Dec 17, 2020 18:26
[2020-12-17] MEDS ORDERED: Gadavist 7.5mMol/7.5ml vial IV PRN (18:30)
[2020-12-17] MEDS: Thiamine 100mg tab ORAL SCH (18:41)
--- NOTE | 2020-12-17 18:43 | NUR ---
NURSE NOTES: signed consent for radiology contrast material. will cont to monitor.
--- NOTE | 2020-12-17 19:07 | NUR ---
NURSE HAND-OFF: Important Events on Shift:[signed consent for IV contrast] Patient Status: [stable] Diet: [soft] Pending Orders: [labs] Pending Results/Labs:[am] Pending MD notification:[] Latest Vital Signs: Temperature 97.7 , Pulse 85 , B/P 120 /74 , Respiratory Rate 18 , O2 SAT 94 , Room Air, O2 Flow Rate . Vital Sign Comment: [] Latest Fragoso Fall Score: 35 Fall Risk: Medium Risk Safety Measures: Call light Within Reach, Bed Alarm , Side Rails Side Rails x2, Bed position Low and Locked. Fall Precautions: Yellow Socks Door Sign Patient Fall Education Report given to [angel].
--- NOTE | 2020-12-17 19:50 | NUR ---
NURSE NOTES: Patient in bed, awake and alert x4. No distress or SOB on room air. Soft diet/NPO midnight. IV intact and patent. Call light in reach. Bed locked and in lowest position. Will continue plan of care.
[2020-12-17 20:00] VITALS: BP 125/78
[2020-12-18] VITALS: BP 126/78
--- NOTE | 2020-12-18 02:59 | History and Physical Report ---
DATE OF ADMISSION: 12/15/2020 HISTORY OF PRESENT ILLNESS: The patient is a 30-year-old male who came to the emergency room for having recurrent nausea, vomiting, and abdominal pain. The patient also was found to have jaundice. The patient claims he has been drinking alcohol for about 4 months ago, then he quit and relapsed again and has been sober now the last 2-1/2 months, but he claims he has intermittently pain and nausea and vomiting. PAST MEDICAL HISTORY: Significant for alcohol abuse and history of chronic pancreatitis. MEDICATIONS: None. ALLERGIES: None. FAMILY HISTORY: Noncontributory. SOCIAL HISTORY: Lives at home with family. He currently denies any alcohol. Denies any illegal drugs. Denies any smoking. PHYSICAL EXAMINATION: GENERAL: This is a young male, currently in bed, comfortable, and looks jaundiced. VITAL SIGNS: Blood pressure 121/79, pulse 71, respirations 16, and temperature 98.6. HEENT: Bilateral conjunctivae pale and jaundiced. CHEST: Bilaterally clear. CARDIOVASCULAR: Regular rhythm. ABDOMEN: Soft. Epigastric tenderness. Good bowel sounds. Mild rebound. : Deferred. LABORATORY EXAMINATION: His white count is 5.9, hemoglobin 9.2, hematocrit 27, and platelets are 156,000. Chemistry panel, sodium 141, potassium 3.9, BUN 15, creatinine 0.8, and glucose 118. His total bilirubin 7, direct bilirubin is 5, and alkaline phosphate is 125. Lipase is 2600. Albumin is 2.4. His urine is negative The patient also has an ultrasound for abdomen showing cystic structure in the tail of pancreas measuring 6.0, likely pseudocyst, mild dilatation of the pancreatic duct measuring 5 mm, contracted gallbladder with mucous thickening. No stones. No splenomegaly. Bilateral pleural effusion. His CT of abdomen showing cardiomegaly, large bilateral pleural effusion at lung bases, patchy air space disease of lung base of uncertain etiology, fatty liver, portal hypertension and splenomegaly. There is a large cyst pancreas, differential pseudocyst or neoplasm of pancreas. Thera is a wall thickening of gallbladder and anasarca diffusely included haziness of mesentry, diffuse free fluid within the pelvis. No bowel obstruction. ASSESSMENT: 1. Acute pancreatitis. 2. Bilateral pleural effusion. 3. Pseudocyst of pancreas. 4. Jaundice. 5. Anemia. 6. Severe malnutrition. PLAN: The patient was recommended to quit alcohol. I will start liquid diet. Continue morphine and Zofran. Continue Levaquin. Discussed with GI, Dr. Ankit Berrios: We will repeat his BMP and CBC as well as lipase. Huan Lott M.D. DR: JAMES JOB#: [id number] CC:
[2020-12-18 04:00] VITALS: BP 121/73
[2020-12-18] MEDS: Morphine Sulfate 2mg/ml Inj(IV/IM USE ONLY) IVP PRN ×5 (04:12→23:58)
[2020-12-18 05:44] LABS: BASOPHILS % (AUTO) 1.8 % (0.0-2.0); EOSINOPHILS % (AUTO) 4.3 % (0.0-3.0); HEMATOCRIT 26.4 % (42.0-52.0); HEMOGLOBIN 8.8 G/DL (14.2-18.0); LYMPHOCYTES % (AUTO) 25.5 % (20.0-45.0); MEAN CORPUSCULAR VOLUME 104 FL (80-99); MONOCYTES % (AUTO) 9.4 % (1.0-10.0); PLATELET COUNT 164 K/UL (150-450); RED BLOOD COUNT 2.54 M/UL (4.70-6.10); WHITE BLOOD COUNT 3.7 K/UL (4.8-10.8)
[2020-12-18 06:09] LABS: ALANINE AMINOTRANSFERASE 27 U/L (12-78); ALBUMIN 1.9 G/DL (3.4-5.0); ALBUMIN/GLOBULIN RATIO 0.4 (1.0-2.7); ALKALINE PHOSPHATASE 98 U/L (46-116); ANION GAP 8 mmol/L (5-15); ASPARTATE AMINO TRANSFERASE 61 U/L (15-37); BILIRUBIN,TOTAL 5.7 MG/DL (0.2-1.0); BLOOD UREA NITROGEN 6 mg/dL (7-18); CALCIUM 8.1 MG/DL (8.5-10.1); CARBON DIOXIDE 22 MMOL/L (21-32); CHLORIDE 109 MMOL/L (98-107); CREATININE 0.7 MG/DL (0.55-1.30); SODIUM 139 MMOL/L (136-145)
[2020-12-18 06:13] LABS: BILIRUBIN,DIRECT 4.1 MG/DL (0.0-0.3)
--- NOTE | 2020-12-18 06:59 | Consultation ---
DATE OF CONSULTATION: 12/16/2020 GASTROENTEROLOGY CONSULTATION CONSULTING PHYSICIAN: Ankit Berrios M.D. CHIEF COMPLAINT: I was asked to see this patient by Dr. Charlie Lott for evaluation of abdominal pain and pancreatitis. HISTORY OF PRESENT ILLNESS: The patient is a 30-year-old man who comes in to the hospital for a 2-day history of epigastric abdominal pain. He states that he has had extensive history of alcoholism, and he is drinking a bottle of vodka daily for 7 years. However, he states he stopped drinking alcohol about 2-1/2 months ago. He does, however, admit to a history of pancreatitis and pancreatic cyst. He is from [place] and he was hospitalized in [place] and had a procedure with stent placed internally, but he is not sure of the details. PAST MEDICAL HISTORY: Otherwise unremarkable, but the patient does have a history of pancreatitis and pancreatic pseudocyst. FAMILY HISTORY: Positive for gastric cancer. SOCIAL HISTORY: The patient has an extensive history of alcohol use. He smokes rarely. He is single. REVIEW OF SYSTEMS: Otherwise negative. PHYSICAL EXAMINATION: GENERAL: A well-developed, well-nourished man, seen in his room. HEENT: Normocephalic and atraumatic. Sclerae anicteric. Oropharynx is clear. NECK: Supple. CHEST: Clear to auscultation. CARDIOVASCULAR: Regular rate. ABDOMEN: Soft. Tender in the epigastrium and bilateral upper quadrants without guarding or rebound. EXTREMITIES: No edema. LABORATORY DATA: Noted. IMAGING STUDIES: Reviewed. ASSESSMENT: This patient has alcoholic pancreatitis with a complication of a pseudocyst, which apparently may not be new since he had a history in the past of alcohol use. For the time being, his pancreatitis should be treated with bowel rest and IV fluids. Later, either an ERCP or MRCP examination to be done to evaluate the ducts. He does have an elevated bilirubin which is concerning for the ductal compression by the pseudocyst. The patient also had an elevated bilirubin level, which is concerning for a significant degree of liver dysfunction, perhaps from a recent episode of alcoholic hepatitis. The patient's prognosis is guarded based on significant alcohol use. He will be monitored closely. RECOMMENDATIONS: 1. Keep the patient NPO. 2. IV fluids. 3. Follow liver tests. 4. Proton pump inhibitor. 5. Monitor electrolytes. 6. Multivitamins and thiamine. Thank you for asking me to participate in the care of this patient. nAkit Berrios M.D. DR: DWAYNE JOB#: [id number] CC: NITHYA
[2020-12-18 07:04] LABS: AMYLASE 496 U/L (25-115)
--- NOTE | 2020-12-18 07:23 | NUR ---
NURSE HAND-OFF: Important Events on Shift: NPO for MRI abd Patient Status: Stable Diet: Soft diet/NPO @ midnight for MRI Pending Orders: MRI abd Pending Results/Labs: AM labs Pending MD notification: N/A Latest Vital Signs: Temperature 97.0 , Pulse 83 , B/P 121 /73 , Respiratory Rate 16 , O2 SAT 98 , Room Air, O2 Flow Rate . Vital Sign Comment: N/A Latest Fragoso Fall Score: 35 Fall Risk: Medium Risk Safety Measures: Call light Within Reach, Bed Alarm , Side Rails Side Rails x2, Bed position Low and Locked. Fall Precautions: Yellow Socks Door Sign Patient Fall Education Report given to DELIA Aj
--- NOTE | 2020-12-18 07:25 | NUR ---
NURSE NOTES: Received report from DELIA Dixon. Rounding done with outgoing nurse. Pt is a/o x 4. No SOB noted. Denies any pain at this time. Keep NPO for MRI of abdomen. Discussed plan of care. Pt verbalized understanding. Bed in lowest position, call light within reach. Will continue to monitor.
[2020-12-18 08:00] VITALS: BP 128/78
--- NOTE | 2020-12-18 08:30 | NUR ---
NURSE NOTES: Patient is off the unit for MRI of abdomen in stable condition.
--- NOTE | 2020-12-18 09:14 | NUR ---
CASE MANAGEMENT:REVIEW 30YR OLD MALE WALKED INTO ER CC: ABDOMINAL PAIN SI: PANCREATITIS 98.2 91 20 137/84 98% ON RA LIPASE+2610 IS: IV ZOFRAN IV PEPCID IV TORADOL X1 IV MORPHINE X1 1L NS BOLUS X1 ABD US CT ABD/PELVIS : MED/SURG STATUS
--- NOTE | 2020-12-18 09:40 | NUR ---
NURSE NOTES: Patient came back to the unit in stable condition.
[2020-12-18] MEDS: Thiamine 100mg tab ORAL SCH (10:30)
--- NOTE | 2020-12-18 11:27 | General Progress Note ---
Subjective ROS Limited/Unobtainable: No Allergies: Coded Allergies: No Known Allergies (Unverified , 12/15/20) Objective Last 24 Hour Vital Signs Date Time Temp Pulse Resp B/P (MAP) Pulse Ox O2 Delivery O2 Flow Rate FiO2 12/18/20 09:00 Room Air 12/18/20 08:00 98.4 80 18 128/78 (95) 99 12/18/20 04:00 97.0 83 16 121/73 (89) 98 12/18/20 00:00 97.7 84 20 126/78 (94) 97 12/17/20 21:00 Room Air 12/17/20 20:00 97.9 84 20 125/78 (94) 95 12/17/20 15:59 97.7 85 18 120/74 (89) 94 12/17/20 15:05 98.0 12/17/20 12:00 98.0 82 19 155/84 (107) 95 Intake and Output 12/17/20 12/18/20 19:00 07:00 Intake Total 440 ml 480 ml Balance 440 ml 480 ml Intake Oral 240 ml 480 ml IV Total 200 ml # Voids 2 3 Laboratory Tests 12/17/20 12:00: Lactic Acid Level 1.10 12/18/20 05:35: White Blood Count 3.7L, Red Blood Count 2.54L, Hemoglobin 8.8L, Hematocrit 26.4L , Mean Corpuscular Volume 104H, Mean Corpuscular Hemoglobin 34.6H, Mean Corpuscular Hemoglobin Concent 33.2, Red Cell Distribution Width 14.0, Platelet Count 164, Mean Platelet Volume 5.5L, Neutrophils (%) (Auto) 59.0, Lymphocytes (%) (Auto) 25.5, Monocytes (%) (Auto) 9.4, Eosinophils (%) (Auto) 4.3H, Basophils (%) (Auto) 1.8, Sodium Level 139, Potassium Level 4.0, Chloride Level 109H, Carbon Dioxide Level 22, Anion Gap 8, Blood Urea Nitrogen 6L, Creatinine 0.7, Estimat Glomerular Filtration Rate > 60, Glucose Level 89, Calcium Level 8.1L, Total Bilirubin 5.7H, Direct Bilirubin 4.1H, Aspartate Amino Transf (AST/SGOT) 61H, Alanine Aminotransferase (ALT/SGPT) 27, Alkaline Phosphatase 98, Total Protein 6.5, Albumin 1.9L, Globulin 4.6, Albumin/Globulin Ratio 0.4L, Amylase Level 496H, Lipase > 2000H Height (Feet): 6 Height (Inches): 0.00 Weight (Pounds): 170 General Appearance: no apparent distress EENT: normal ENT inspection Neck: supple Cardiovascular: normal rate Respiratory/Chest: decreased breath sounds Abdomen: soft, hypoactive bowel sounds, tender Extremities: non-tender Assessment/Plan Assessment/Plan: Assessment/Plan Assessment/Plan: Assessment - Chronic alcohol abuse - h/o EtOH pancreatitis with pseudocyst - Recurrent pancreatitis off of EtOH - Elevated bilirubin, presumed from EtOH hepatitis - anemia Recommendations - IVF - MVI - Thiamine - Follow labs - MRCP today -repeat labs Yaron Sandoval MD Dec 18, 2020 11:27
[2020-12-18] MEDS ORDERED: MULTIVITAMINS1 EAC2 ORAL (11:30)
[2020-12-18] MEDS ORDERED: FOLIC ACID1 MG ORAL (11:30)
[2020-12-18] MEDS ORDERED: FUROSEMIDE40 MG ORAL (11:30)
[2020-12-18] MEDS ORDERED: MAGNESIUM OXID400 M1 ORAL (11:30)
[2020-12-18] MEDS ORDERED: SPIRONOLACTONE25 MG ORAL (11:30)
[2020-12-18 12:00] VITALS: BP 124/62
--- NOTE | 2020-12-18 13:53 | Surgery Progress Note ---
Surgery Progress Note Subjective Additional Comments improved feels well mrcp today no n/v Objective Last 24 Hour Vital Signs Date Time Temp Pulse Resp B/P (MAP) Pulse Ox O2 Delivery O2 Flow Rate FiO2 12/18/20 12:00 98.0 90 22 124/62 (82) 99 12/18/20 09:00 Room Air 12/18/20 08:00 98.4 80 18 128/78 (95) 99 12/18/20 04:00 97.0 83 16 121/73 (89) 98 12/18/20 00:00 97.7 84 20 126/78 (94) 97 12/17/20 21:00 Room Air 12/17/20 20:00 97.9 84 20 125/78 (94) 95 12/17/20 15:59 97.7 85 18 120/74 (89) 94 12/17/20 15:05 98.0 I&O Intake and Output 12/17/20 12/18/20 19:00 07:00 Intake Total 440 ml 480 ml Balance 440 ml 480 ml Intake Oral 240 ml 480 ml IV Total 200 ml # Voids 2 3 Cardiovascular: RSR Respiratory: clear Abdomen: soft, non-tender, present bowel sounds Extremities: no edema, no tenderness, no cyanosis Laboratory Tests Test 12/18/20 05:35 White Blood Count 3.7 K/UL (4.8-10.8) L Red Blood Count 2.54 M/UL (4.70-6.10) L Hemoglobin 8.8 G/DL (14.2-18.0) L Hematocrit 26.4 % (42.0-52.0) L Mean Corpuscular Volume 104 FL (80-99) H Mean Corpuscular Hemoglobin 34.6 PG (27.0-31.0) H Mean Corpuscular Hemoglobin Concent 33.2 G/DL (32.0-36.0) Red Cell Distribution Width 14.0 % (11.6-14.8) Platelet Count 164 K/UL (150-450) Mean Platelet Volume 5.5 FL (6.5-10.1) L Neutrophils (%) (Auto) 59.0 % (45.0-75.0) Lymphocytes (%) (Auto) 25.5 % (20.0-45.0) Monocytes (%) (Auto) 9.4 % (1.0-10.0) Eosinophils (%) (Auto) 4.3 % (0.0-3.0) H Basophils (%) (Auto) 1.8 % (0.0-2.0) Sodium Level 139 MMOL/L (136-145) Potassium Level 4.0 MMOL/L (3.5-5.1) Chloride Level 109 MMOL/L (98-107) H Carbon Dioxide Level 22 MMOL/L (21-32) Anion Gap 8 mmol/L (5-15) Blood Urea Nitrogen 6 mg/dL (7-18) L Creatinine 0.7 MG/DL (0.55-1.30) Estimat Glomerular Filtration Rate > 60 mL/min (>60) Glucose Level 89 MG/DL (74-106) Calcium Level 8.1 MG/DL (8.5-10.1) L Total Bilirubin 5.7 MG/DL (0.2-1.0) H Direct Bilirubin 4.1 MG/DL (0.0-0.3) H Aspartate Amino Transf (AST/SGOT) 61 U/L (15-37) H Alanine Aminotransferase (ALT/SGPT) 27 U/L (12-78) Alkaline Phosphatase 98 U/L (46-116) Total Protein 6.5 G/DL (6.4-8.2) Albumin 1.9 G/DL (3.4-5.0) L Globulin 4.6 g/dL Albumin/Globulin Ratio 0.4 (1.0-2.7) L Amylase Level 496 U/L (25-115) H Lipase > 2000 U/L (73-393) H Plan Problems: (1) Pancreatitis Assessment & Plan: 30M with abd pain and pancreatitis liver insufficiency related to prior heavy etoh bili noted lft's noted lipase noted ct and us reviewed npo iv fluids gi eval no acute surgical intervention cont alcohol cessation consider liver center to eval for transplant thank you ABDOMEN: Liver: Fatty liver. Findings of portal hypertension. Gallbladder and bile ducts: There is diffuse wall thickening of the gallbladder best seen on axial image 33. No calcified stones. No ductal dilation. Pancreas: There is a 6.5 x 0.4 x 7.1 cm cystic lesion arising from the tail of the pancreas. Cystic neoplasm of the pancreas cannot be excluded. Other etiologies to consider her includes pseudocyst. Dilatation of the pancreatic duct best seen on series 5 image 31. Spleen: Splenomegaly. Adrenals: The adrenal glands are unremarkable. Kidneys and ureters: Both kidneys are shown to excrete contrast bilaterally without hydronephrosis appeared Nonspecific stranding about the perinephric spaces. Stomach and bowel: Moderate quantity of ingested material in the stomach. Moderate quantity of stool throughout the colon. No obstruction. No mucosal thickening. PELVIS: Appendix: No findings to suggest acute appendicitis. Bladder: Unremarkable. No mass. Reproductive: Unremarkable as visualized. ABDOMEN and PELVIS: Intraperitoneal space: Moderate ascites. Moderate quantity of free fluid within the pelvis. No free air. Bones/joints: No acute fracture. No dislocation. Soft tissues: Ischiorectal fat is clean. Mild to moderate anasarca. Vasculature: Flow is demonstrated within the celiac, SMA, the renal arteries, and the CHRISTA. Abdominal aorta is normal in caliber. Portal vein is patent. No abdominal aortic aneurysm. Lymph nodes: No pelvic or inguinal lymphadenopathy. IMPRESSION: 1. Cardiomegaly. 2. Large bilateral pleural effusions the lung bases. 3. Patchy airspace disease of the lung bases of uncertain etiology. 4. Fatty liver. 5. Portal hypertension. 6. Splenomegaly. 7. There is a large cystic structure apparently arising from the tail region of the pancreas differential etiologies which include cystic neoplasm of the pancreas versus pseudocyst. Moreover, there is prominence of the pancreatic duct. Magnetic resonance imaging of the abdomen with MRCP sequences is advised for further evaluation of the pancreas. 8. There is wall thickening of the gallbladder best seen on axial image 33. Ultrasound imaging of the right upper quadrant is advised to further assessment of the gallbladder, particularly given the patient's symptoms. 9. Anasarca diffusely including haziness of the mesentery diffusely. 10. Free fluid within the pelvis. 11. No bowel obstruction. Didier Mittal Dec 18, 2020 13:53
--- NOTE | 2020-12-18 13:55 | Diagnostic Imaging Report ---
Indication: Abdominal pain, abdominal tenderness, history of alcoholic pancreatitis Technique: Axial single shot fast spin echo breath hold, coronal single shot fast spin-echo breath hold, axial T2 FRFSE fat-saturated, 2-D thick slab MRCP, axial 2-D FIESTA fat-saturated, axial 3-D dual echo breath-hold, precontrast axial and postcontrast axial and coronal water weighted axial LAVA FLEX images of the abdomen Comparison: No comparison MRI. Reference made to abdominal sonogram and abdomen pelvis CT scan both dated 12/15/2020 Findings: Inferior to and apparently coming off of the tail of the pancreas is a unilocular cystic mass which measures 6.6 cm AP by 6.8 cm transverse by 6.8 cm craniocaudad. This has a perceptible rim which demonstrates some areas of mural thickening, particularly anteriorly. This demonstrates fluid signal on all sequences. The areas of thickening are low signal on all sequences, and probably to a large extent represent debris. Wall as low signal on the T2. Second 1.2 cm more medial cystic mass also probably represents a pseudocyst. Sequences, demonstrates some signal on the T1 sequences There is only slight mural enhancement and the thickened areas do not enhance. The cyst appears to connect to the upstream pancreatic duct. There is a small irregular cystic lesion located medial to this which measures 13 mm diameter. The liver is minimally enlarged. The gallbladder demonstrates mild mural edema. No evidence of gallstones. No biliary ductal dilatation, gallbladder filling defects, or biliary ductal filling defects. The spleen is markedly enlarged, measuring 20 cm long axis dimension. The adrenals and kidneys are unremarkable. There is a small to moderate amount of free intraperitoneal fluid. There are large pleural effusions bilaterally. Impression: 6.6 x 6.8 x 6.8 cm pancreatic tail cystic mass, as described above. This most likely represents a pancreatic pseudocyst, particularly given patient's age stated clinical history of pancreatitis and the presence of debris within the lumen. Negative for gallstones or dilated bile ducts. Gallbladder wall thickening described on recent CT scan is or apparent on that exam, is likely related to hemodynamic derangements from liver disease Mild to moderate ascites Massive splenomegaly Large bilateral pleural effusions
--- NOTE | 2020-12-18 15:49 | NUR ---
[employer]URANCE [employer]IC[employer]/REVIEW FAXED TO [facility] [phone]
[2020-12-18 16:00] VITALS: BP 123/75
--- NOTE | 2020-12-18 16:27 | General Progress Note ---
Subjective Allergies: Coded Allergies: No Known Allergies (Unverified , 12/15/20) Subjective c/o pain controlled with pain meds mri of abdomen today Objective Last 24 Hour Vital Signs Date Time Temp Pulse Resp B/P (MAP) Pulse Ox O2 Delivery O2 Flow Rate FiO2 12/18/20 12:00 98.0 90 22 124/62 (82) 99 12/18/20 09:00 Room Air 12/18/20 08:00 98.4 80 18 128/78 (95) 99 12/18/20 04:00 97.0 83 16 121/73 (89) 98 12/18/20 00:00 97.7 84 20 126/78 (94) 97 12/17/20 21:00 Room Air 12/17/20 20:00 97.9 84 20 125/78 (94) 95 Intake and Output 12/17/20 12/18/20 19:00 07:00 Intake Total 440 ml 480 ml Balance 440 ml 480 ml Intake Oral 240 ml 480 ml IV Total 200 ml # Voids 2 3 Laboratory Tests 12/18/20 05:35: White Blood Count 3.7L, Red Blood Count 2.54L, Hemoglobin 8.8L, Hematocrit 26.4L , Mean Corpuscular Volume 104H, Mean Corpuscular Hemoglobin 34.6H, Mean Corpuscular Hemoglobin Concent 33.2, Red Cell Distribution Width 14.0, Platelet Count 164, Mean Platelet Volume 5.5L, Neutrophils (%) (Auto) 59.0, Lymphocytes (%) (Auto) 25.5, Monocytes (%) (Auto) 9.4, Eosinophils (%) (Auto) 4.3H, Basophils (%) (Auto) 1.8, Sodium Level 139, Potassium Level 4.0, Chloride Level 109H, Carbon Dioxide Level 22, Anion Gap 8, Blood Urea Nitrogen 6L, Creatinine 0.7, Estimat Glomerular Filtration Rate > 60, Glucose Level 89, Calcium Level 8.1L, Total Bilirubin 5.7H, Direct Bilirubin 4.1H, Aspartate Amino Transf (AST/SGOT) 61H, Alanine Aminotransferase (ALT/SGPT) 27, Alkaline Phosphatase 98, Total Protein 6.5, Albumin 1.9L, Globulin 4.6, Albumin/Globulin Ratio 0.4L, Amylase Level 496H, Lipase > 2000H Height (Feet): 6 Height (Inches): 0.00 Weight (Pounds): 170 General Appearance: alert EENT: PERRL/EOMI Neck: supple Cardiovascular: regular rhythm Respiratory/Chest: normal breath sounds Abdomen: non tender, soft Extremities: non-tender Assessment/Plan Assessment/Plan: ac pancreatitis anemia hx etoh abused add po pain med advance diet gi on consult dc ivf Charlie Lott MD Dec 18, 2020 16:27
[2020-12-18] MEDS: traMADol 50mg tab ORAL PRN (18:15)
--- NOTE | 2020-12-18 19:17 | NUR ---
NURSE HAND-OFF: Important Events on Shift: MRI of abd w/ contrast was done Patient Status: c/o abdominal pain Diet: Soft Pending Orders: n/a Pending Results/Labs:n/a Pending MD notification:n/a Latest Vital Signs: Temperature 97.9 , Pulse 83 , B/P 123 /75 , Respiratory Rate 18 , O2 SAT 97 , Room Air, O2 Flow Rate . Vital Sign Comment: stable Latest Fragoso Fall Score: 35 Fall Risk: Medium Risk Safety Measures: Call light Within Reach, Bed Alarm , Side Rails Side Rails x2, Bed position Low and Locked. Fall Precautions: Yellow Socks Door Sign Patient Fall Education Report given to DELIA Morales. Pt c/o abdominal pain as 08/26 and tramadol was not working. Endorsed to DELIA Morales
--- NOTE | 2020-12-18 19:26 | NUR ---
NURSE NOTES: Patient sitting in bed, on room air, in severe pain, screaming and crying. Dr. Lott made aware by AM RN and Night RN , waiting for new orders. Call light in reach. Bed in lowest and lock engaged. Will continue to monitor.
[2020-12-18 20:00] VITALS: BP 134/95
--- NOTE | 2020-12-18 20:15 | NUR ---
NURSE NOTES: Obtained new dose for Morphine from Dr. Lott. Order in and carried out.
[2020-12-19] VITALS: BP 125/80
--- NOTE | 2020-12-19 00:27 | NUR ---
NURSE NOTES: Patient is still complaining that Morphine doesn't help him with his pain. Dr. Lott made aware. Waiting for new order.
[2020-12-19 04:00] VITALS: BP 134/85
[2020-12-19] MEDS: Morphine Sulfate 2mg/ml Inj(IV/IM USE ONLY) IVP PRN (04:17)
--- NOTE | 2020-12-19 06:58 | General Progress Note ---
Subjective ROS Limited/Unobtainable: Yes Allergies: Coded Allergies: No Known Allergies (Unverified , 12/15/20) Objective Last 24 Hour Vital Signs Date Time Temp Pulse Resp B/P (MAP) Pulse Ox O2 Delivery O2 Flow Rate FiO2 12/19/20 04:00 98.1 80 20 134/85 (101) 96 12/19/20 00:00 98.3 85 20 125/80 (95) 96 12/18/20 21:00 Room Air 12/18/20 20:00 97.9 95 20 134/95 (108) 97 12/18/20 16:00 97.9 83 18 123/75 (91) 97 12/18/20 12:00 98.0 90 22 124/62 (82) 99 12/18/20 09:00 Room Air 12/18/20 08:00 98.4 80 18 128/78 (95) 99 Intake and Output 12/18/20 12/19/20 19:00 07:00 Intake Total 400 ml 350 ml Balance 400 ml 350 ml Intake Oral 400 ml 350 ml # Voids 3 3 Height (Feet): 6 Height (Inches): 0.00 Weight (Pounds): 170 General Appearance: no apparent distress EENT: normal ENT inspection Neck: supple Cardiovascular: normal rate Respiratory/Chest: decreased breath sounds Abdomen: soft, hypoactive bowel sounds, tender Extremities: non-tender Assessment/Plan Assessment/Plan: Assessment/Plan Assessment/Plan: Assessment - Chronic alcohol abuse - h/o EtOH pancreatitis with pseudocyst - Recurrent pancreatitis off of EtOH - Elevated bilirubin, presumed from EtOH hepatitis - anemia Recommendations - IVF - MVI - Thiamine - Follow labs - MRCP reviewed>>>6.6 cm psudocyst>>>needs out patient fu imaging in 4 weeks -pain control -repeat labs Yaron Sandoval MD Dec 19, 2020 06:57
[2020-12-19 07:19] LABS: BASOPHILS % (AUTO) 1.2 % (0.0-2.0); EOSINOPHILS % (AUTO) 1.6 % (0.0-3.0); HEMOGLOBIN 9.3 G/DL (14.2-18.0); LYMPHOCYTES % (AUTO) 18.9 % (20.0-45.0); MEAN CORPUSCULAR VOLUME 104 FL (80-99); MONOCYTES % (AUTO) 9.3 % (1.0-10.0); NEUTROPHILS % (AUTO) 69.1 % (45.0-75.0); PLATELET COUNT 168 K/UL (150-450); RED BLOOD COUNT 2.69 M/UL (4.70-6.10); RED CELL DISTRIBUTION WIDTH 13.6 % (11.6-14.8); WHITE BLOOD COUNT 5.8 K/UL (4.8-10.8)
[2020-12-19 08:00] VITALS: BP 120/82
--- NOTE | 2020-12-19 08:01 | NUR ---
NURSE HAND-OFF: Important Events on Shift: pain mgt Patient Status: Diet: soft Pending Orders: Pending Results/Labs: Pending MD notification: Latest Vital Signs: Temperature 98.1 , Pulse 80 , B/P 134 /85 , Respiratory Rate 20 , O2 SAT 96 , Room Air, O2 Flow Rate . Vital Sign Comment: Latest Fragoso Fall Score: 35 Fall Risk: Medium Risk Safety Measures: Call light Within Reach, Bed Alarm , Side Rails Side Rails x2, Bed position Low and Locked. Fall Precautions: Yellow Socks Door Sign Patient Fall Education Report given to DELIA Clark.
[2020-12-19 08:09] LABS: ALANINE AMINOTRANSFERASE 26 U/L (12-78); ALBUMIN 2.1 G/DL (3.4-5.0); ALBUMIN/GLOBULIN RATIO 0.4 (1.0-2.7); ALKALINE PHOSPHATASE 96 U/L (46-116); ANION GAP 9 mmol/L (5-15); ASPARTATE AMINO TRANSFERASE 60 U/L (15-37); BILIRUBIN,TOTAL 6.5 MG/DL (0.2-1.0); BLOOD UREA NITROGEN 8 mg/dL (7-18); CALCIUM 8.1 MG/DL (8.5-10.1); CARBON DIOXIDE 22 MMOL/L (21-32); CHLORIDE 109 MMOL/L (98-107); CHOLESTEROL 144 MG/DL (< 200); CREATININE 0.6 MG/DL (0.55-1.30); HDL CHOLESTEROL 39 MG/DL (40-60); POTASSIUM 3.9 MMOL/L (3.5-5.1); SODIUM 140 MMOL/L (136-145); TRIGLYCERIDES 86 MG/DL (30-150)
--- NOTE | 2020-12-19 08:16 | NUR ---
NURSE NOTES: Received report from Nikia LIN. Patient is asleep during rounds, RR even and unlabored, in no apparent distress. Bed low and locked, call light within reach.
--- NOTE | 2020-12-19 08:17 | NUR ---
RD ASSESSMENT & RECOMMENDATIONS SEE CARE ACTIVITY FOR COMPLETE ASSESSMENT DAILY ESTIMATED NEEDS: Needs based on Pancreatitis/ 77kg 25-30 kcals/kg 6086-6068 total kcals 1-1.5 g protein/kg 77-115 g total protein 25-30 mL/kg 6969-0699 total fluid mLs NUTRITION DIAGNOSIS: Altered nutrition related lab values R/T alcoholic pancreatitis as evidenced by elev lipase (>2000), elev amylase (496), elev T bili (5.7), elev AST. CURRENT DIET:SOFT PO DIET RECOMMENDATIONS: LOW NA, LOW FAT ADDITIONAL RECOMMENDATIONS: * Standing wt as able for accurate CBW * Trend liver fxn and pancreatic enzymes * Monitor PO tolerance * Continue Vit B1 * Add MVI x 1 and Folate 1mg Q daily
[2020-12-19] MEDS ORDERED: Hydromorphone 0.5mg/0.5ml inj IVP SCH (08:45)
[2020-12-19] MEDS: Thiamine 100mg tab ORAL SCH (08:48)
--- NOTE | 2020-12-19 08:51 | Consultation ---
History of Present Illness General Date patient seen: Dec 19, 2020 Chief Complaint: Present Illness Allergies: Coded Allergies: No Known Allergies (Unverified , 12/15/20) Medication History Scheduled Folic Acid* (Folic Acid*), 1 MG ORAL DAILY, (Reported) Furosemide* (Lasix*), 40 MG ORAL DAILY, (Reported) Magnesium Oxide (Magnesium Oxide), 400 MG ORAL DAILY, (Reported) Multivitamins* (Multivitamins*), 1 TAB ORAL DAILY, (Reported) Spironolactone* (Aldactone*), 25 MG ORAL DAILY, (Reported) Patient History Healthcare decision maker Resuscitation status Advanced Directive on File Physical Exam Last 24 Hour Vital Signs Date Time Temp Pulse Resp B/P (MAP) Pulse Ox O2 Delivery O2 Flow Rate FiO2 12/19/20 08:00 98.1 93 18 120/82 (95) 94 12/19/20 04:00 98.1 80 20 134/85 (101) 96 12/19/20 00:00 98.3 85 20 125/80 (95) 96 12/18/20 21:00 Room Air 12/18/20 20:00 97.9 95 20 134/95 (108) 97 12/18/20 16:00 97.9 83 18 123/75 (91) 97 12/18/20 12:00 98.0 90 22 124/62 (82) 99 12/18/20 09:00 Room Air Intake and Output 12/18/20 12/19/20 19:00 07:00 Intake Total 400 ml 350 ml Balance 400 ml 350 ml Intake Oral 400 ml 350 ml # Voids 3 3 Laboratory Tests Test 12/19/20 06:11 White Blood Count 5.8 K/UL (4.8-10.8) # Red Blood Count 2.69 M/UL (4.70-6.10) L Hemoglobin 9.3 G/DL (14.2-18.0) L Hematocrit 28.0 % (42.0-52.0) L Mean Corpuscular Volume 104 FL (80-99) H Mean Corpuscular Hemoglobin 34.8 PG (27.0-31.0) H Mean Corpuscular Hemoglobin Concent 33.3 G/DL (32.0-36.0) Red Cell Distribution Width 13.6 % (11.6-14.8) Platelet Count 168 K/UL (150-450) Mean Platelet Volume 6.7 FL (6.5-10.1) Neutrophils (%) (Auto) 69.1 % (45.0-75.0) Lymphocytes (%) (Auto) 18.9 % (20.0-45.0) L Monocytes (%) (Auto) 9.3 % (1.0-10.0) Eosinophils (%) (Auto) 1.6 % (0.0-3.0) Basophils (%) (Auto) 1.2 % (0.0-2.0) Sodium Level Pending Potassium Level Pending Chloride Level Pending Carbon Dioxide Level Pending Blood Urea Nitrogen Pending Creatinine Pending Estimat Glomerular Filtration Rate Pending Glucose Level Pending Calcium Level Pending Total Bilirubin Pending Aspartate Amino Transf (AST/SGOT) Pending Alanine Aminotransferase (ALT/SGPT) Pending Alkaline Phosphatase Pending Total Protein Pending Albumin Pending Globulin Pending Triglycerides Level Pending Cholesterol Level Pending LDL Cholesterol Pending HDL Cholesterol Pending Cholesterol/HDL Ratio Pending Amylase Level Pending Lipase Pending Height (Feet): 6 Height (Inches): 0.00 Weight (Pounds): 170 Medications Current Medications Medications (Trade) Dose Ordered Sig/Viji Route PRN Reason Start Time Stop Time Status Last Admin Dose Admin Acetaminophen (Tylenol) 650 mg Q4H PRN ORAL Temp >100.5 12/15/20 22:45 01/14/21 22:44 Acetaminophen/ Hydrocodone Bitart ([place] 10/325) 1 tab Q4H PRN ORAL Severe Pain (Pain Scale 7-10) 12/19/20 08:45 12/26/20 08:44 Gadobutrol (Gadavist) 7.5 mmol NOW PRN IV Radiology Procedure 12/17/20 18:30 12/21/20 18:29 Hydromorphone HCl (Dilaudid) 0.5 mg ONCE IVP 12/19/20 08:45 12/19/20 10:00 12/19/20 08:48 Levofloxacin 100 ml @ 100 mls/hr Q24H IVPB 12/16/20 00:00 12/23/20 00:00 12/19/20 00:07 Ondansetron HCl (Zofran) 4 mg Q6H PRN IVP Nausea & Vomiting 12/15/20 22:45 01/14/21 22:44 Thiamine HCl (Vitamin B1) 100 mg DAILY ORAL 12/17/20 18:30 01/16/21 18:29 12/19/20 08:48 Assessment/Plan Assessment/Plan: (1) Abdominal pain (2) Pancreatitis Seen dictated Chirag Anderson Dec 19, 2020 08:51
[2020-12-19 08:56] LABS: AMYLASE 1030 U/L (25-115)
[2020-12-19 08:57] LABS: BILIRUBIN,DIRECT 4.2 MG/DL (0.0-0.3)
--- NOTE | 2020-12-19 10:48 | General Progress Note ---
Subjective Allergies: Coded Allergies: No Known Allergies (Unverified , 12/15/20) Subjective c/omore pain controlled with pain management on the case mri of abdomen done Objective Last 24 Hour Vital Signs Date Time Temp Pulse Resp B/P (MAP) Pulse Ox O2 Delivery O2 Flow Rate FiO2 12/19/20 08:00 98.1 93 18 120/82 (95) 94 12/19/20 04:00 98.1 80 20 134/85 (101) 96 12/19/20 00:00 98.3 85 20 125/80 (95) 96 12/18/20 21:00 Room Air 12/18/20 20:00 97.9 95 20 134/95 (108) 97 12/18/20 16:00 97.9 83 18 123/75 (91) 97 12/18/20 12:00 98.0 90 22 124/62 (82) 99 Intake and Output 12/18/20 12/19/20 19:00 07:00 Intake Total 400 ml 350 ml Balance 400 ml 350 ml Intake Oral 400 ml 350 ml # Voids 3 3 Laboratory Tests 12/19/20 06:11: White Blood Count 5.8#, Red Blood Count 2.69L, Hemoglobin 9.3L, Hematocrit 28.0L , Mean Corpuscular Volume 104H, Mean Corpuscular Hemoglobin 34.8H, Mean Corpuscular Hemoglobin Concent 33.3, Red Cell Distribution Width 13.6, Platelet Count 168, Mean Platelet Volume 6.7, Neutrophils (%) (Auto) 69.1, Lymphocytes (%) (Auto) 18.9L, Monocytes (%) (Auto) 9.3, Eosinophils (%) (Auto) 1.6, Basophils (%) (Auto) 1.2, Sodium Level 140, Potassium Level 3.9, Chloride Level 109H, Carbon Dioxide Level 22, Anion Gap 9, Blood Urea Nitrogen 8, Creatinine 0.6, Estimat Glomerular Filtration Rate > 60, Glucose Level 93, Calcium Level 8.1L, Total Bilirubin 6.5H, Direct Bilirubin 4.2H, Aspartate Amino Transf (AST/SGOT) 60H, Alanine Aminotransferase (ALT/SGPT) 26, Alkaline Phosphatase 96, Total Protein 6.9, Albumin 2.1L, Globulin 4.8, Albumin/Globulin Ratio 0.4L, Triglycerides Level 86, Cholesterol Level 144, LDL Cholesterol 95, HDL Cholesterol 39L, Cholesterol/HDL Ratio 3.7, Amylase Level 1030*H, Lipase > 2000H Height (Feet): 6 Height (Inches): 0.00 Weight (Pounds): 170 General Appearance: alert EENT: PERRL/EOMI Neck: supple Cardiovascular: regular rhythm Respiratory/Chest: crackles/rales Abdomen: non tender, soft Extremities: non-tender Assessment/Plan Assessment/Plan: ac pancreatitis anemia hx etoh abused add po pain meds pain management on the change to liquid diet back gi on consult dc ivf Charlie Lott MD Dec 19, 2020 10:48
[2020-12-19 12:00] VITALS: BP 123/81
[2020-12-19] MEDS: HYDROcodone/Acetamin 10/325 tab ORAL PRN ×3 (13:20→22:02)
--- NOTE | 2020-12-19 13:21 | NUR ---
CASE MANAGEMENT:REVIEW 12/19/20 SI: ACUTE PANCREATITIS 96.7 83 18 123/81 95% ON RA H/H-9.3/28.0 AMYLASE+1030 LIPASE>2000 IS: IV LEVAQUIN Q24 THIAMINE PO QD : MED/SURG 4 EAST PLAN: START CLEARS
--- NOTE | 2020-12-19 14:29 | Consultation ---
DATE OF CONSULTATION: 12/19/2020 PAIN MANAGEMENT CONSULTATION CONSULTING PHYSICIAN: Rocky Johnston M.D. REFERRING PHYSICIAN: Huan Lott M.D. PHYSICIAN HIRED HELP: Negar Mitchell CHIEF COMPLAINT: Abdominal pain. HISTORY OF PRESENT ILLNESS: This is a 30-year-old male who is being seen on the Med\Surg floor of [facility] for initial pain management consultation. The patient was admitted under the care of Dr. Lott with complaints of abdominal pain. He had nausea and vomiting. He was very jaundiced. Reports that he stopped drinking alcohol about 4 months ago, relapsed and became sober about 2-1/2 months ago, found to have pancreatitis with history of liver disease. At this time, he is on morphine 2 mg IV every four hours as needed for severe pain and tramadol 500 mg every six hours as needed for moderate pain with minimal pain relief. Due to this, we were consulted so the patient would have adequate pain control while here in the hospital. PAST MEDICAL HISTORY: GERD, stomach ulcers, gallstones, liver disease. PAST SURGICAL HISTORY: Stent for the gallbladder. SOCIAL HISTORY: History of alcohol abuse. Denies smoking tobacco and IV drug abuse. ALLERGIES: No known drug allergies. MEDICATIONS: Folic acid, Lasix, magnesium oxide, multivitamin, Aldactone. REVIEW OF SYSTEMS: Denies rash, fever, chills, sweating, dizziness, drowsiness, . No shortness of breath or chest pain. complaining of nausea and vomiting. No diarrhea or blood in the stool. No dysuria. PHYSICAL EXAMINATION: GENERAL: Alert, awake, and oriented. VITAL SIGNS: Blood pressure 120/82, heart rate 93, oxygen saturation 94%, respirations 18, temperature 98.1 degrees Fahrenheit. HEENT: PERRLA. NECK: Range of motion is full in all directions. No tenderness to paracervical muscles. No adenopathy. LUNGS: Decreased breath sounds bilaterally. HEART: Regular. ABDOMEN: Tenderness to palpation. BACK: Range of motion is decreased in flexion and extension. EXTREMITIES: Upper and lower extremity range of motion is decreased due to the patient's condition. No cyanosis. No clubbing. Sensory is reduced. Reflexes are not obtainable. No adenopathy. ASSESSMENT AND PLAN: This is a 30-year-old male with abdominal pain, pancreatitis. The patient will be discontinued off the morphine and tramadol, one time dose of Dilaudid 0.5 mg IV was ordered for the patient and started on [place] 10/325 every tablet every four hours as needed for severe pain. The patient was discussed with Dr. Johnston and Dr. Johnston concurred. We will follow the patient. Thank you very much for the courtesy of this consultation. Rocky Johnston M.D. PRACHI Mitchell DR: Ellen JOB#: [id number] CC:
--- NOTE | 2020-12-19 14:41 | Surgery Progress Note ---
Surgery Progress Note Subjective Additional Comments c/o more abd pain no n/v mri noted care plan discussed pain management Objective Last 24 Hour Vital Signs Date Time Temp Pulse Resp B/P (MAP) Pulse Ox O2 Delivery O2 Flow Rate FiO2 12/19/20 12:00 96.7 83 18 123/81 (95) 95 12/19/20 09:00 Room Air 12/19/20 08:00 98.1 93 18 120/82 (95) 94 12/19/20 04:00 98.1 80 20 134/85 (101) 96 12/19/20 00:00 98.3 85 20 125/80 (95) 96 12/18/20 21:00 Room Air 12/18/20 20:00 97.9 95 20 134/95 (108) 97 12/18/20 16:00 97.9 83 18 123/75 (91) 97 I&O Intake and Output 12/18/20 12/19/20 19:00 07:00 Intake Total 400 ml 350 ml Balance 400 ml 350 ml Intake Oral 400 ml 350 ml # Voids 3 3 Cardiovascular: RSR Respiratory: decreased breath sounds Abdomen: soft, distended, non-tender, decreased bowel sounds Extremities: no tenderness, no cyanosis Laboratory Tests Test 12/19/20 06:11 White Blood Count 5.8 K/UL (4.8-10.8) # Red Blood Count 2.69 M/UL (4.70-6.10) L Hemoglobin 9.3 G/DL (14.2-18.0) L Hematocrit 28.0 % (42.0-52.0) L Mean Corpuscular Volume 104 FL (80-99) H Mean Corpuscular Hemoglobin 34.8 PG (27.0-31.0) H Mean Corpuscular Hemoglobin Concent 33.3 G/DL (32.0-36.0) Red Cell Distribution Width 13.6 % (11.6-14.8) Platelet Count 168 K/UL (150-450) Mean Platelet Volume 6.7 FL (6.5-10.1) Neutrophils (%) (Auto) 69.1 % (45.0-75.0) Lymphocytes (%) (Auto) 18.9 % (20.0-45.0) L Monocytes (%) (Auto) 9.3 % (1.0-10.0) Eosinophils (%) (Auto) 1.6 % (0.0-3.0) Basophils (%) (Auto) 1.2 % (0.0-2.0) Sodium Level 140 MMOL/L (136-145) Potassium Level 3.9 MMOL/L (3.5-5.1) Chloride Level 109 MMOL/L (98-107) H Carbon Dioxide Level 22 MMOL/L (21-32) Anion Gap 9 mmol/L (5-15) Blood Urea Nitrogen 8 mg/dL (7-18) Creatinine 0.6 MG/DL (0.55-1.30) Estimat Glomerular Filtration Rate > 60 mL/min (>60) Glucose Level 93 MG/DL (74-106) Calcium Level 8.1 MG/DL (8.5-10.1) L Total Bilirubin 6.5 MG/DL (0.2-1.0) H Direct Bilirubin 4.2 MG/DL (0.0-0.3) H Aspartate Amino Transf (AST/SGOT) 60 U/L (15-37) H Alanine Aminotransferase (ALT/SGPT) 26 U/L (12-78) Alkaline Phosphatase 96 U/L (46-116) Total Protein 6.9 G/DL (6.4-8.2) Albumin 2.1 G/DL (3.4-5.0) L Globulin 4.8 g/dL Albumin/Globulin Ratio 0.4 (1.0-2.7) L Triglycerides Level 86 MG/DL (30-150) Cholesterol Level 144 MG/DL (< 200) LDL Cholesterol 95 mg/dL (<100) HDL Cholesterol 39 MG/DL (40-60) L Cholesterol/HDL Ratio 3.7 (3.3-4.4) Amylase Level 1030 U/L (25-115) *H Lipase > 2000 U/L (73-393) H Plan Problems: (1) Pancreatitis Assessment & Plan: 30M with abd pain and pancreatitis liver insufficiency related to prior heavy etoh bili noted lft's noted lipase noted ct and us reviewed npo iv fluids gi eval no acute surgical intervention cont alcohol cessation consider liver center to eval for transplant thank you MRI noted panc cyst noted repeat imaging in 6 weeks may need drainage but should be monitored ABDOMEN: Liver: Fatty liver. Findings of portal hypertension. Gallbladder and bile ducts: There is diffuse wall thickening of the gallbladder best seen on axial image 33. No calcified stones. No ductal dilation. Pancreas: There is a 6.5 x 0.4 x 7.1 cm cystic lesion arising from the tail of the pancreas. Cystic neoplasm of the pancreas cannot be excluded. Other etiologies to consider her includes pseudocyst. Dilatation of the pancreatic duct best seen on series 5 image 31. Spleen: Splenomegaly. Adrenals: The adrenal glands are unremarkable. Kidneys and ureters: Both kidneys are shown to excrete contrast bilaterally without hydronephrosis appeared Nonspecific stranding about the perinephric spaces. Stomach and bowel: Moderate quantity of ingested material in the stomach. Moderate quantity of stool throughout the colon. No obstruction. No mucosal thickening. PELVIS: Appendix: No findings to suggest acute appendicitis. Bladder: Unremarkable. No mass. Reproductive: Unremarkable as visualized. ABDOMEN and PELVIS: Intraperitoneal space: Moderate ascites. Moderate quantity of free fluid within the pelvis. No free air. Bones/joints: No acute fracture. No dislocation. Soft tissues: Ischiorectal fat is clean. Mild to moderate anasarca. Vasculature: Flow is demonstrated within the celiac, SMA, the renal arteries, and the CHRISTA. Abdominal aorta is normal in caliber. Portal vein is patent. No abdominal aortic aneurysm. Lymph nodes: No pelvic or inguinal lymphadenopathy. IMPRESSION: 1. Cardiomegaly. 2. Large bilateral pleural effusions the lung bases. 3. Patchy airspace disease of the lung bases of uncertain etiology. 4. Fatty liver. 5. Portal hypertension. 6. Splenomegaly. 7. There is a large cystic structure apparently arising from the tail region of the pancreas differential etiologies which include cystic neoplasm of the pancreas versus pseudocyst. Moreover, there is prominence of the pancreatic duct. Magnetic resonance imaging of the abdomen with MRCP sequences is advised for further evaluation of the pancreas. 8. There is wall thickening of the gallbladder best seen on axial image 33. Ultrasound imaging of the right upper quadrant is advised to further assessment of the gallbladder, particularly given the patient's symptoms. 9. Anasarca diffusely including haziness of the mesentery diffusely. 10. Free fluid within the pelvis. 11. No bowel obstruction. Inferior to and apparently coming off of the tail of the pancreas is a unilocular cystic mass which measures 6.6 cm AP by 6.8 cm transverse by 6.8 cm craniocaudad. This has a perceptible rim which demonstrates some areas of mural thickening, particularly anteriorly. This demonstrates fluid signal on all seque nces. The areas of thickening are low signal on all sequences, and probably to a large extent represent debris. Wall as low signal on the T2. Second 1.2 cm more medial cystic mass also probably represents a pseudocyst. Sequences, demonstrates some signal on the T1 sequences There is only slight mural enhancement and the thickened areas do not enhance. The cyst appears to connect to the upstream pancreatic duct. There is a small irregular cystic lesion located medial to this which measures 13 mm diameter. The liver is minimally enlarged. The gallbladder demonstrates mild mural edema. No evidence of gallstones. No biliary ductal dilatation, gallbladder filling defects, or biliary ductal filling defects. The spleen is markedly enlarged, measuring 20 cm long axis dimension. The adrenals and kidneys are unremarkable. There is a small to moderate amount of free intraperitoneal fluid. There are large pleural effusions bilaterally. Impression: 6.6 x 6.8 x 6.8 cm pancreatic tail cystic mass, as described above. This most likely represents a pancreatic pseudocyst, particularly given patient's age stated clinical history of pancreatitis and the presence of debris within the lumen. Negative for gallstones or dilated bile ducts. Gallbladder wall thickening described on recent CT scan is or apparent on that exam, is likely related to hemodynamic derangements from liver disease Mild to moderate ascites Massive splenomegaly Large bilateral pleural effusions Didier Mittal Dec 19, 2020 14:41
[2020-12-19 16:00] VITALS: BP 124/96
--- NOTE | 2020-12-19 16:32 | NUR ---
INSURANCE CLINICALS/REVIEW FAXED TO [facility] [phone]
--- NOTE | 2020-12-19 18:58 | NUR ---
NURSE HAND-OFF: Important Events on Shift: Pain management, on PO pain medication, clear liquid diet. Patient Status: stable Diet: clear liquid Pending Orders: n/a Pending Results/Labs: n/a Pending MD notification: n/a Latest Vital Signs: Temperature 98.3 , Pulse 80 , B/P 124 /96 , Respiratory Rate 18 , O2 SAT 94 , Room Air Vital Sign Comment: VS stable Latest Fragoso Fall Score: 35 Fall Risk: Medium Risk Safety Measures: Call light Within Reach, Bed Alarm , Side Rails Side Rails x2, Bed position Low and Locked. Fall Precautions: Yellow Socks Door Sign Patient Fall Education Report given to Nikia LIN .
--- NOTE | 2020-12-19 19:32 | NUR ---
NURSE NOTES: Patient awake in bed, on room air, no respiratory distress noted. Per patient pain today is much better control than last night. Call light in reach. Bed in lowest and lock engaged. Will continue to monitor.
[2020-12-19 20:00] VITALS: BP 119/81
[2020-12-20] VITALS (7 sets, daily range): BP systolic 110–123; BP diastolic 64–80
[2020-12-20] MEDS: HYDROcodone/Acetamin 10/325 tab ORAL PRN ×6 (02:05→23:28)
--- NOTE | 2020-12-20 07:36 | NUR ---
NURSE NOTES: Patient received from DELIA Montejo. Patient awake in bed, alert and oriented x 4, no SOB, bed in lowest position with breaks engaged and alarm on, denies any pain at this time, IV line present, on room air, on standard precautions, will continue to monitor and proceed with plan of care, call light within reach.
--- NOTE | 2020-12-20 07:41 | NUR ---
NURSE HAND-OFF: Important Events on Shift: pain mgt Patient Status: Diet: clear liq Pending Orders: Pending Results/Labs: Pending MD notification: Latest Vital Signs: Temperature 98.3 , Pulse 82 , B/P 110 /68 , Respiratory Rate 17 , O2 SAT 97 , Room Air, O2 Flow Rate . Vital Sign Comment: Latest Fragoso Fall Score: 35 Fall Risk: Medium Risk Safety Measures: Call light Within Reach, Bed Alarm , Side Rails Side Rails x2, Bed position Low and Locked. Fall Precautions: Yellow Socks Door Sign Patient Fall Education Report given to DELIA So.
--- NOTE | 2020-12-20 08:31 | General Progress Note ---
Subjective Date patient seen: Dec 20, 2020 Time patient seen: 07:00 - am Allergies: Coded Allergies: No Known Allergies (Unverified , 12/15/20) Subjective HISTORY OF PRESENT ILLNESS: This is a 30-year-old male who is being seen on the Med\Surg floor of [facility]. Patient in bed continues to c/o pain which has been tolerated on the [place]. REVIEW OF SYSTEMS: Denies rash, fever, chills, sweating, dizziness, drowsiness, blurred vision. No shortness of breath or chest pain. Not complaining of nausea and vomiting. No diarrhea or blood in the stool. No dysuria. Objective Last 24 Hour Vital Signs Date Time Temp Pulse Resp B/P (MAP) Pulse Ox O2 Delivery O2 Flow Rate FiO2 12/20/20 04:00 98.3 82 17 110/68 (82) 97 12/20/20 00:00 98.5 91 18 120/77 (91) 95 12/19/20 21:00 Room Air 12/19/20 20:00 98.9 18 119/81 (94) 95 12/19/20 16:00 98.3 80 18 124/96 (105) 94 12/19/20 12:00 96.7 83 18 123/81 (95) 95 12/19/20 09:00 Room Air Intake and Output 12/19/20 12/20/20 19:00 07:00 Intake Total 540 ml 300 ml Balance 540 ml 300 ml Intake Oral 540 ml 300 ml # Voids 3 3 Height (Feet): 6 Height (Inches): 0.00 Weight (Pounds): 170 Objective PHYSICAL EXAMINATION: GENERAL: Alert, awake, and oriented. LUNGS: Decreased breath sounds bilaterally. HEART: Regular. ABDOMEN: Tenderness to palpation. EXTREMITIES: No cyanosis. No clubbing. NEURO: No changes. Assessment/Plan Assessment/Plan: (1) Abdominal pain (2) Pancreatitis Patient to be continued on [place] D/w Dr. Johnston and he concurred. Chirag Anderson Dec 20, 2020 08:31
--- NOTE | 2020-12-20 08:49 | NUR ---
CASE MANAGEMENT:REVIEW 12/20/20 SI: ACUTE PANCREATITIS 98.3 82 17 110/68 97% ON RA LABS CURRENTLY PENDING IS: IV LEVAQUIN Q24 THIAMINE PO QD NORCO PO Q4HRS PRN : MED/SURG 4 EAST DCP: FROM HOME PLAN: CLEAR LIQUID DIET
[2020-12-20] MEDS: Thiamine 100mg tab ORAL SCH (08:52)
[2020-12-20 10:19] LABS: BASOPHILS % (AUTO) 1.5 % (0.0-2.0); EOSINOPHILS % (AUTO) 5.8 % (0.0-3.0); HEMATOCRIT 25.9 % (42.0-52.0); HEMOGLOBIN 8.6 G/DL (14.2-18.0); LYMPHOCYTES % (AUTO) 23.8 % (20.0-45.0); MEAN CORPUSCULAR VOLUME 105 FL (80-99); MONOCYTES % (AUTO) 10.4 % (1.0-10.0); NEUTROPHILS % (AUTO) 58.6 % (45.0-75.0); PLATELET COUNT 130 K/UL (150-450); RED BLOOD COUNT 2.47 M/UL (4.70-6.10); RED CELL DISTRIBUTION WIDTH 13.5 % (11.6-14.8); WHITE BLOOD COUNT 3.9 K/UL (4.8-10.8)
[2020-12-20 10:43] LABS: ALANINE AMINOTRANSFERASE 25 U/L (12-78); ALBUMIN 2.1 G/DL (3.4-5.0); ALBUMIN/GLOBULIN RATIO 0.5 (1.0-2.7); ALKALINE PHOSPHATASE 83 U/L (46-116); ANION GAP 8 mmol/L (5-15); ASPARTATE AMINO TRANSFERASE 53 U/L (15-37); BILIRUBIN,TOTAL 6.8 MG/DL (0.2-1.0); BLOOD UREA NITROGEN 11 mg/dL (7-18); CALCIUM 8.1 MG/DL (8.5-10.1); CARBON DIOXIDE 23 MMOL/L (21-32); CHLORIDE 109 MMOL/L (98-107); CREATININE 0.5 MG/DL (0.55-1.30); POTASSIUM 3.6 MMOL/L (3.5-5.1); SODIUM 140 MMOL/L (136-145)
--- NOTE | 2020-12-20 10:49 | General Progress Note ---
Subjective ROS Limited/Unobtainable: Yes Allergies: Coded Allergies: No Known Allergies (Unverified , 12/15/20) Objective Last 24 Hour Vital Signs Date Time Temp Pulse Resp B/P (MAP) Pulse Ox O2 Delivery O2 Flow Rate FiO2 12/20/20 10:28 98.0 12/20/20 09:00 Room Air 12/20/20 08:00 98.0 82 17 123/80 (94) 97 12/20/20 04:00 98.3 82 17 110/68 (82) 97 12/20/20 00:00 98.5 91 18 120/77 (91) 95 12/19/20 21:00 Room Air 12/19/20 20:00 98.9 18 119/81 (94) 95 12/19/20 16:00 98.3 80 18 124/96 (105) 94 12/19/20 12:00 96.7 83 18 123/81 (95) 95 Intake and Output 12/19/20 12/20/20 19:00 07:00 Intake Total 540 ml 300 ml Balance 540 ml 300 ml Intake Oral 540 ml 300 ml # Voids 3 3 Laboratory Tests 12/20/20 09:26: White Blood Count 3.9L, Red Blood Count 2.47L, Hemoglobin 8.6L, Hematocrit 25.9L , Mean Corpuscular Volume 105H, Mean Corpuscular Hemoglobin 34.6H, Mean Corpuscular Hemoglobin Concent 33.1, Red Cell Distribution Width 13.5, Platelet Count 130L, Mean Platelet Volume 6.1L, Neutrophils (%) (Auto) 58.6, Lymphocytes (%) (Auto) 23.8, Monocytes (%) (Auto) 10.4H, Eosinophils (%) (Auto) 5.8H, Basophils (%) (Auto) 1.5, Sodium Level [Pending], Potassium Level [Pending], Chloride Level [Pending], Carbon Dioxide Level [Pending], Blood Urea Nitrogen [Pending], Creatinine [Pending], Estimat Glomerular Filtration Rate [Pending], Glucose Level [Pending], Calcium Level [Pending], Total Bilirubin [Pending], Aspartate Amino Transf (AST/SGOT) [Pending], Alanine Aminotransferase (ALT/SGPT) [Pending], Alkaline Phosphatase [Pending], Total Protein [Pending], Albumin [Pending], Globulin [Pending], Amylase Level [Pending], Lipase [Pending] Height (Feet): 6 Height (Inches): 0.00 Weight (Pounds): 170 General Appearance: no apparent distress EENT: normal ENT inspection Neck: supple Cardiovascular: normal rate Respiratory/Chest: decreased breath sounds Abdomen: normal bowel sounds, non tender, soft Extremities: non-tender Assessment/Plan Assessment/Plan: Assessment/Plan Assessment/Plan: Assessment - Chronic alcohol abuse - h/o EtOH pancreatitis with pseudocyst - Recurrent pancreatitis off of EtOH - Elevated bilirubin, presumed from EtOH hepatitis - anemia Recommendations - IVF - MVI - Thiamine - Follow labs - MRCP reviewed>>>6.6 cm psudocyst>>>needs out patient fu imaging in 4 weeks -pain control -add creon -repeat labs Yaron Sandoval MD Dec 20, 2020 10:49
[2020-12-20 10:51] LABS: AMYLASE 677 U/L (25-115)
[2020-12-20 10:55] LABS: BILIRUBIN,DIRECT 4.4 MG/DL (0.0-0.3)
[2020-12-20] MEDS ORDERED: Creon DR 36,000 units cap ORAL PRN (11:00)
--- NOTE | 2020-12-20 11:11 | NUR ---
NURSE NOTES: Amylase level today [address] Sandoval and Dr[address] Lott.
--- NOTE | 2020-12-20 12:12 | NUR ---
INSURANCE CLINICALS/REVIEW FAXED TO [facility] [phone]
[2020-12-20] MEDS: Creon DR 36,000 units cap ORAL SCH ×2 (12:19→17:05)
--- NOTE | 2020-12-20 13:40 | Surgery Progress Note ---
Surgery Progress Note Subjective Symptoms: improved, pain same, passing flatus Objective Last 24 Hour Vital Signs Date Time Temp Pulse Resp B/P (MAP) Pulse Ox O2 Delivery O2 Flow Rate FiO2 12/20/20 12:00 98.3 82 20 112/72 (85) 98 12/20/20 10:28 98.0 12/20/20 09:00 Room Air 12/20/20 08:00 98.0 82 17 123/80 (94) 97 12/20/20 04:00 98.3 82 17 110/68 (82) 97 12/20/20 00:00 98.5 91 18 120/77 (91) 95 12/19/20 21:00 Room Air 12/19/20 20:00 98.9 18 119/81 (94) 95 12/19/20 16:00 98.3 80 18 124/96 (105) 94 I&O Intake and Output 12/19/20 12/20/20 19:00 07:00 Intake Total 540 ml 300 ml Balance 540 ml 300 ml Intake Oral 540 ml 300 ml # Voids 3 3 Cardiovascular: RSR Respiratory: clear Abdomen: soft, distended, non-tender, present bowel sounds Extremities: no edema, no tenderness, no cyanosis Laboratory Tests Test 12/20/20 09:26 White Blood Count 3.9 K/UL (4.8-10.8) L Red Blood Count 2.47 M/UL (4.70-6.10) L Hemoglobin 8.6 G/DL (14.2-18.0) L Hematocrit 25.9 % (42.0-52.0) L Mean Corpuscular Volume 105 FL (80-99) H Mean Corpuscular Hemoglobin 34.6 PG (27.0-31.0) H Mean Corpuscular Hemoglobin Concent 33.1 G/DL (32.0-36.0) Red Cell Distribution Width 13.5 % (11.6-14.8) Platelet Count 130 K/UL (150-450) L Mean Platelet Volume 6.1 FL (6.5-10.1) L Neutrophils (%) (Auto) 58.6 % (45.0-75.0) Lymphocytes (%) (Auto) 23.8 % (20.0-45.0) Monocytes (%) (Auto) 10.4 % (1.0-10.0) H Eosinophils (%) (Auto) 5.8 % (0.0-3.0) H Basophils (%) (Auto) 1.5 % (0.0-2.0) Sodium Level 140 MMOL/L (136-145) Potassium Level 3.6 MMOL/L (3.5-5.1) Chloride Level 109 MMOL/L (98-107) H Carbon Dioxide Level 23 MMOL/L (21-32) Anion Gap 8 mmol/L (5-15) Blood Urea Nitrogen 11 mg/dL (7-18) Creatinine 0.5 MG/DL (0.55-1.30) L Estimat Glomerular Filtration Rate > 60 mL/min (>60) Glucose Level 96 MG/DL (74-106) Calcium Level 8.1 MG/DL (8.5-10.1) L Total Bilirubin 6.8 MG/DL (0.2-1.0) H Direct Bilirubin 4.4 MG/DL (0.0-0.3) H Aspartate Amino Transf (AST/SGOT) 53 U/L (15-37) H Alanine Aminotransferase (ALT/SGPT) 25 U/L (12-78) Alkaline Phosphatase 83 U/L (46-116) Total Protein 6.7 G/DL (6.4-8.2) Albumin 2.1 G/DL (3.4-5.0) L Globulin 4.6 g/dL Albumin/Globulin Ratio 0.5 (1.0-2.7) L Amylase Level 677 U/L (25-115) *H Lipase > 2000 U/L (73-393) H Plan Problems: (1) Pancreatitis Assessment & Plan: 30M with abd pain and pancreatitis liver insufficiency related to prior heavy etoh bili noted lft's noted lipase noted ct and us reviewed npo iv fluids gi eval no acute surgical intervention cont alcohol cessation consider liver center to eval for transplant thank you MRI noted panc cyst noted repeat imaging in 6 weeks may need drainage but should be monitored ABDOMEN: Liver: Fatty liver. Findings of portal hypertension. Gallbladder and bile ducts: There is diffuse wall thickening of the gallbladder best seen on axial image 33. No calcified stones. No ductal dilation. Pancreas: There is a 6.5 x 0.4 x 7.1 cm cystic lesion arising from the tail of the pancreas. Cystic neoplasm of the pancreas cannot be excluded. Other etiologies to consider her includes pseudocyst. Dilatation of the pancreatic duct best seen on series 5 image 31. Spleen: Splenomegaly. Adrenals: The adrenal glands are unremarkable. Kidneys and ureters: Both kidneys are shown to excrete contrast bilaterally without hydronephrosis appeared Nonspecific stranding about the perinephric spaces. Stomach and bowel: Moderate quantity of ingested material in the stomach. Moderate quantity of stool throughout the colon. No obstruction. No mucosal thickening. PELVIS: Appendix: No findings to suggest acute appendicitis. Bladder: Unremarkable. No mass. Reproductive: Unremarkable as visualized. ABDOMEN and PELVIS: Intraperitoneal space: Moderate ascites. Moderate quantity of free fluid within the pelvis. No free air. Bones/joints: No acute fracture. No dislocation. Soft tissues: Ischiorectal fat is clean. Mild to moderate anasarca. Vasculature: Flow is demonstrated within the celiac, SMA, the renal arteries, and the CHRISTA. Abdominal aorta is normal in caliber. Portal vein is patent. No abdominal aortic aneurysm. Lymph nodes: No pelvic or inguinal lymphadenopathy. IMPRESSION: 1. Cardiomegaly. 2. Large bilateral pleural effusions the lung bases. 3. Patchy airspace disease of the lung bases of uncertain etiology. 4. Fatty liver. 5. Portal hypertension. 6. Splenomegaly. 7. There is a large cystic structure apparently arising from the tail region of the pancreas differential etiologies which include cystic neoplasm of the pancreas versus pseudocyst. Moreover, there is prominence of the pancreatic duct. Magnetic resonance imaging of the abdomen with MRCP sequences is advised for further evaluation of the pancreas. 8. There is wall thickening of the gallbladder best seen on axial image 33. Ultrasound imaging of the right upper quadrant is advised to further assessment of the gallbladder, particularly given the patient's symptoms. 9. Anasarca diffusely including haziness of the mesentery diffusely. 10. Free fluid within the pelvis. 11. No bowel obstruction. Inferior to and apparently coming off of the tail of the pancreas is a unilocular cystic mass which measures 6.6 cm AP by 6.8 cm transverse by 6.8 cm craniocaudad. This has a perceptible rim which demonstrates some areas of mural thickening, particularly anteriorly. This demonstrates fluid signal on all sequences. The areas of thickening are low signal on all sequences, and probably to a large extent represent debris. Wall as low signal on the T2. Second 1.2 cm more medial cystic mass also probably represents a pseudocyst. Sequences, demonstrates some signal on the T1 sequences There is only slight mural enhancement and the thickened areas do not enhance. The cyst appears to connect to the upstream pancreatic duct. There is a small irregular cystic lesion located medial to this which measures 13 mm diameter. The liver is minimally enlarged. The gallbladder demonstrates mild mural edema. No evidence of gallstones. No biliary ductal dilatation, gallbladder filling defects, or biliary ductal filling defects. The spleen is markedly enlarged, measuring 20 cm long axis dimension. The adrenals and kidneys are unremarkable. There is a small to moderate amount of free intraperitoneal fluid. There are large pleural effusions bilaterally. Impression: 6.6 x 6.8 x 6.8 cm pancreatic tail cystic mass, as described above. This most likely represents a pancreatic pseudocyst, particularly given patient's age stated clinical history of pancreatitis and the presence of debris within the lumen. Negative for gallstones or dilated bile ducts. Gallbladder wall thickening described on recent CT scan is or apparent on that exam, is likely related to hemodynamic derangements from liver disease Mild to moderate ascites Massive splenomegaly Large bilateral pleural effusions Didier Mittal Dec 20, 2020 13:40
--- NOTE | 2020-12-20 15:30 | General Progress Note ---
Subjective Allergies: Coded Allergies: No Known Allergies (Unverified , 12/15/20) Subjective c/omore pain controlled with pain management on the case mri of abdomen done Objective Last 24 Hour Vital Signs Date Time Temp Pulse Resp B/P (MAP) Pulse Ox O2 Delivery O2 Flow Rate FiO2 12/20/20 12:00 98.3 82 20 112/72 (85) 98 12/20/20 10:28 98.0 12/20/20 09:00 Room Air 12/20/20 08:00 98.0 82 17 123/80 (94) 97 12/20/20 04:00 98.3 82 17 110/68 (82) 97 12/20/20 00:00 98.5 91 18 120/77 (91) 95 12/19/20 21:00 Room Air 12/19/20 20:00 98.9 18 119/81 (94) 95 12/19/20 16:00 98.3 80 18 124/96 (105) 94 Intake and Output 12/19/20 12/20/20 19:00 07:00 Intake Total 540 ml 300 ml Balance 540 ml 300 ml Intake Oral 540 ml 300 ml # Voids 3 3 Laboratory Tests 12/20/20 09:26: White Blood Count 3.9L, Red Blood Count 2.47L, Hemoglobin 8.6L, Hematocrit 25.9L , Mean Corpuscular Volume 105H, Mean Corpuscular Hemoglobin 34.6H, Mean Corpuscular Hemoglobin Concent 33.1, Red Cell Distribution Width 13.5, Platelet Count 130L, Mean Platelet Volume 6.1L, Neutrophils (%) (Auto) 58.6, Lymphocytes (%) (Auto) 23.8, Monocytes (%) (Auto) 10.4H, Eosinophils (%) (Auto) 5.8H, Basophils (%) (Auto) 1.5, Sodium Level 140, Potassium Level 3.6, Chloride Level 109H, Carbon Dioxide Level 23, Anion Gap 8, Blood Urea Nitrogen 11, Creatinine 0.5L, Estimat Glomerular Filtration Rate > 60, Glucose Level 96, Calcium Level 8.1L, Total Bilirubin 6.8H, Direct Bilirubin 4.4H, Aspartate Amino Transf (AST/SGOT) 53H, Alanine Aminotransferase (ALT/SGPT) 25, Alkaline Phosphatase 83, Total Protein 6.7, Albumin 2.1L, Globulin 4.6, Albumin/Globulin Ratio 0.5L, Amylase Level 677*H, Lipase > 2000H Height (Feet): 6 Height (Inches): 0.00 Weight (Pounds): 170 General Appearance: alert EENT: PERRL/EOMI Neck: supple Cardiovascular: regular rhythm Respiratory/Chest: lungs clear Abdomen: tender Assessment/Plan Assessment/Plan: ac pancreatitis anemia hx etoh abused add po pain meds pain management on the change to liquid diet back gi on consult dc ivf Charlie Lott MD Dec 20, 2020 15:30
--- NOTE | 2020-12-20 19:26 | NUR ---
NURSE HAND-OFF: Important Events on Shift:[pain management. labs and VS monitoring] Patient Status: [stable] Diet: [Clear liquid] Pending Orders: [] Pending Results/Labs:[] Pending MD notification:[] Latest Vital Signs: Temperature 98.9 , Pulse 80 , B/P 122 /64 , Respiratory Rate 20 , O2 SAT 98 , Room Air, O2 Flow Rate . Vital Sign Comment: [] Latest Fragoso Fall Score: 35 Fall Risk: Medium Risk Safety Measures: Call light Within Reach, Bed Alarm , Side Rails Side Rails x2, Bed position Low and Locked. Fall Precautions: Yellow Socks Door Sign Patient Fall Education Report given to [DELIA Deutsch].
--- NOTE | 2020-12-20 19:51 | NUR ---
NURSE NOTES: Patient in bed, awake, alert x4. Able to make needs known. Respiration is even and unlabored. Complained of pain, was given PRn pain medication as ordered. Kept clean and comfortable. bed in low and locked position. Provided safe environment. Iv site noted. Skin is warm and dry to touch. call light is at bedside. Will continue plan of care.
--- NOTE | 2020-12-20 23:49 | NUR ---
NURSE NOTES: Complained of pain, given PRN pain medication as ordered. Will reassess. Call light is at bedside.
[2020-12-21] MEDS: HYDROcodone/Acetamin 10/325 tab ORAL PRN ×5 (03:25→21:11)
[2020-12-21 04:00] VITALS: BP 107/75
--- NOTE | 2020-12-21 07:00 | NUR ---
NURSE NOTES: Patient received from DELIA Deutsch. Patient observed to be awake, alert, and oriented x4. Seen lying in bed, with HOB elevated currently on room air no s/sx of SOB/Distress, no c/o any pain or discomfort. IV site located on LAC gauge [address] intact and dry. Bed placed on lowest and locked, called light placed within reach and will continue to monitor for any changes in condition for patient.
--- NOTE | 2020-12-21 07:18 | NUR ---
NURSE HAND-OFF: Important Events on Shift:pain medication Patient Status: WNL Diet: Clear liquid Pending Orders: Pending Results/Labs: Pending MD notification: Latest Vital Signs: Temperature 97.9 , Pulse 79 , B/P 107 /75 , Respiratory Rate 18 , O2 SAT 97 , Room Air, O2 Flow Rate . Vital Sign Comment: WNL Latest Fragoso Fall Score: 35 Fall Risk: Medium Risk Safety Measures: Call light Within Reach, Bed Alarm , Side Rails Side Rails x2, Bed position Low and Locked. Fall Precautions: Yellow Socks Door Sign Patient Fall Education Report given to DELIA So.
[2020-12-21] MEDS: Creon DR 36,000 units cap ORAL SCH ×3 (07:24→16:53)
[2020-12-21 08:00] VITALS: BP 121/68
--- NOTE | 2020-12-21 08:26 | Surgery Progress Note ---
Surgery Progress Note Subjective Additional Comments afebrile, HD stable labs noted micro reviewed comfortable appearing no n/v Objective Last 24 Hour Vital Signs Date Time Temp Pulse Resp B/P (MAP) Pulse Ox O2 Delivery O2 Flow Rate FiO2 12/21/20 04:00 97.9 79 18 107/75 (86) 97 12/20/20 23:50 97.9 75 18 122/74 (90) 97 12/20/20 21:00 Room Air 12/20/20 20:00 98.3 82 18 114/70 (85) 97 12/20/20 16:00 98.9 80 20 122/64 (83) 98 12/20/20 15:39 98.3 12/20/20 12:00 98.3 82 20 112/72 (85) 98 12/20/20 10:28 98.0 12/20/20 09:00 Room Air I&O Intake and Output 12/20/20 12/21/20 19:00 07:00 Intake Total 840 ml 100 ml Output Total 400 ml Balance 840 ml -300 ml Intake Oral 840 ml IV Total 100 ml Output Urine Total 400 ml # Voids 2 Cardiovascular: RSR Respiratory: clear Abdomen: soft, flat, non-tender, present bowel sounds, non-distended Extremities: no edema, no tenderness, no cyanosis Laboratory Tests Test 12/20/20 09:26 White Blood Count 3.9 K/UL (4.8-10.8) L Red Blood Count 2.47 M/UL (4.70-6.10) L Hemoglobin 8.6 G/DL (14.2-18.0) L Hematocrit 25.9 % (42.0-52.0) L Mean Corpuscular Volume 105 FL (80-99) H Mean Corpuscular Hemoglobin 34.6 PG (27.0-31.0) H Mean Corpuscular Hemoglobin Concent 33.1 G/DL (32.0-36.0) Red Cell Distribution Width 13.5 % (11.6-14.8) Platelet Count 130 K/UL (150-450) L Mean Platelet Volume 6.1 FL (6.5-10.1) L Neutrophils (%) (Auto) 58.6 % (45.0-75.0) Lymphocytes (%) (Auto) 23.8 % (20.0-45.0) Monocytes (%) (Auto) 10.4 % (1.0-10.0) H Eosinophils (%) (Auto) 5.8 % (0.0-3.0) H Basophils (%) (Auto) 1.5 % (0.0-2.0) Sodium Level 140 MMOL/L (136-145) Potassium Level 3.6 MMOL/L (3.5-5.1) Chloride Level 109 MMOL/L (98-107) H Carbon Dioxide Level 23 MMOL/L (21-32) Anion Gap 8 mmol/L (5-15) Blood Urea Nitrogen 11 mg/dL (7-18) Creatinine 0.5 MG/DL (0.55-1.30) L Estimat Glomerular Filtration Rate > 60 mL/min (>60) Glucose Level 96 MG/DL (74-106) Calcium Level 8.1 MG/DL (8.5-10.1) L Total Bilirubin 6.8 MG/DL (0.2-1.0) H Direct Bilirubin 4.4 MG/DL (0.0-0.3) H Aspartate Amino Transf (AST/SGOT) 53 U/L (15-37) H Alanine Aminotransferase (ALT/SGPT) 25 U/L (12-78) Alkaline Phosphatase 83 U/L (46-116) Total Protein 6.7 G/DL (6.4-8.2) Albumin 2.1 G/DL (3.4-5.0) L Globulin 4.6 g/dL Albumin/Globulin Ratio 0.5 (1.0-2.7) L Amylase Level 677 U/L (25-115) *H Lipase > 2000 U/L (73-393) H Plan Problems: (1) Pancreatitis Assessment & Plan: 30M with abd pain and pancreatitis liver insufficiency related to prior heavy etoh bili noted lft's noted lipase noted ct and us reviewed npo iv fluids gi eval no acute surgical intervention cont alcohol cessation consider liver center to eval for transplant thank you MRI noted panc cyst noted repeat imaging in 6 weeks may need drainage but should be monitored ABDOMEN: Liver: Fatty liver. Findings of portal hypertension. Gallbladder and bile ducts: There is diffuse wall thickening of the gallbladder best seen on axial image 33. No calcified stones. No ductal dilation. Pancreas: There is a 6.5 x 0.4 x 7.1 cm cystic lesion arising from the tail of the pancreas. Cystic neoplasm of the pancreas cannot be excluded. Other etiologies to consider her includes pseudocyst. Dilatation of the pancreatic duct best seen on series 5 image 31. Spleen: Splenomegaly. Adrenals: The adrenal glands are unremarkable. Kidneys and ureters: Both kidneys are shown to excrete contrast bilaterally without hydronephrosis appeared Nonspecific stranding about the perinephric spaces. Stomach and bowel: Moderate quantity of ingested material in the stomach. Moderate quantity of stool throughout the colon. No obstruction. No mucosal thickening. PELVIS: Appendix: No findings to suggest acute appendicitis. Bladder: Unremarkable. No mass. Reproductive: Unremarkable as visualized. ABDOMEN and PELVIS: Intraperitoneal space: Moderate ascites. Moderate quantity of free fluid within the pelvis. No free air. Bones/joints: No acute fracture. No dislocation. Soft tissues: Ischiorectal fat is clean. Mild to moderate anasarca. Vasculature: Flow is demonstrated within the celiac, SMA, the renal arteries, and the CHRISTA. Abdominal aorta is normal in caliber. Portal vein is patent. No abdominal aortic aneurysm. Lymph nodes: No pelvic or inguinal lymphadenopathy. IMPRESSION: 1. Cardiomegaly. 2. Large bilateral pleural effusions the lung bases. 3. Patchy airspace disease of the lung bases of uncertain etiology. 4. Fatty liver. 5. Portal hypertension. 6. Splenomegaly. 7. There is a large cystic structure apparently arising from the tail region of the pancreas differential etiologies which include cystic neoplasm of the pancreas versus pseudocyst. Moreover, there is prominence of the pancreatic duct. Magnetic resonance imaging of the abdomen with MRCP sequences is advised for further evaluation of the pancreas. 8. There is wall thickening of the gallbladder best seen on axial image 33. Ultrasound imaging of the right upper quadrant is advised to further assessment of the gallbladder, particularly given the patient's symptoms. 9. Anasarca diffusely including haziness of the mesentery diffusely. 10. Free fluid within the pelvis. 11. No bowel obstruction. Inferior to and apparently coming off of the tail of the pancreas is a unilocular cystic mass which measures 6.6 cm AP by 6.8 cm transverse by 6.8 cm craniocaudad. This has a perceptible rim which demonstrates some areas of mural thickening, particularly anteriorly. This demonstrates fluid signal on all sequences. The areas of thickening are low signal on all sequences, and probably to a large extent represent debris. Wall as low signal on the T2. Second 1.2 cm more medial cystic mass also probably represents a pseudocyst. Sequences, demonstrates some signal on the T1 sequences There is only slight mural enhancement and the thickened areas do not enhance. The cyst appears to connect to the upstream pancreatic duct. There is a small irregular cystic lesion located medial to this which measures 13 mm diameter. The liver is minimally enlarged. The gallbladder demonstrates mild mural edema. No evidence of gallstones. No biliary ductal dilatation, gallbladder filling defects, or biliary ductal filling defects. The spleen is markedly enlarged, measuring 20 cm long axis dimension. The adrenals and kidneys are unremarkable. There is a small to moderate amount of free intraperitoneal fluid. There are large pleural effusions bilaterally. Impression: 6.6 x 6.8 x 6.8 cm pancreatic tail cystic mass, as described above. This most likely represents a pancreatic pseudocyst, particularly given patient's age stated clinical history of pancreatitis and the presence of debris within the lumen. Negative for gallstones or dilated bile ducts. Gallbladder wall thickening described on recent CT scan is or apparent on that exam, is likely related to hemodynamic derangements from liver disease Mild to moderate ascites Massive splenomegaly Large bilateral pleural effusions Didier Mittal Dec 21, 2020 08:25
--- NOTE | 2020-12-21 08:36 | General Progress Note ---
Subjective Date patient seen: Dec 21, 2020 Time patient seen: 07:15 - am Allergies: Coded Allergies: No Known Allergies (Unverified , 12/15/20) Subjective HISTORY OF PRESENT ILLNESS: This is a 30-year-old male who is being seen on the Med[facility]Surg floor of [facility]. Patient resting in bed and reports pain is tolerated on the [place]. No new complaints at this time. REVIEW OF SYSTEMS: Denies rash, fever, chills, sweating, dizziness, drowsiness, blurred vision. No shortness of breath or chest pain. Not complaining of nausea and vomiting. No diarrhea or blood in the stool. No dysuria. Objective Last 24 Hour Vital Signs Date Time Temp Pulse Resp B/P (MAP) Pulse Ox O2 Delivery O2 Flow Rate FiO2 12/21/20 04:00 97.9 79 18 107/75 (86) 97 12/20/20 23:50 97.9 75 18 122/74 (90) 97 12/20/20 21:00 Room Air 12/20/20 20:00 98.3 82 18 114/70 (85) 97 12/20/20 16:00 98.9 80 20 122/64 (83) 98 12/20/20 15:39 98.3 12/20/20 12:00 98.3 82 20 112/72 (85) 98 12/20/20 10:28 98.0 12/20/20 09:00 Room Air Intake and Output 12/20/20 12/21/20 19:00 07:00 Intake Total 840 ml 100 ml Output Total 400 ml Balance 840 ml -300 ml Intake Oral 840 ml IV Total 100 ml Output Urine Total 400 ml # Voids 2 Laboratory Tests 12/20/20 09:26: White Blood Count 3.9L, Red Blood Count 2.47L, Hemoglobin 8.6L, Hematocrit 25.9L , Mean Corpuscular Volume 105H, Mean Corpuscular Hemoglobin 34.6H, Mean Corpuscular Hemoglobin Concent 33.1, Red Cell Distribution Width 13.5, Platelet Count 130L, Mean Platelet Volume 6.1L, Neutrophils (%) (Auto) 58.6, Lymphocytes (%) (Auto) 23.8, Monocytes (%) (Auto) 10.4H, Eosinophils (%) (Auto) 5.8H, Basophils (%) (Auto) 1.5, Sodium Level 140, Potassium Level 3.6, Chloride Level 109H, Carbon Dioxide Level 23, Anion Gap 8, Blood Urea Nitrogen 11, Creatinine 0.5L, Estimat Glomerular Filtration Rate > 60, Glucose Level 96, Calcium Level 8.1L, Total Bilirubin 6.8H, Direct Bilirubin 4.4H, Aspartate Amino Transf (AST/SGOT) 53H, Alanine Aminotransferase (ALT/SGPT) 25, Alkaline Phosphatase 83, Total Protein 6.7, Albumin 2.1L, Globulin 4.6, Albumin/Globulin Ratio 0.5L, Amylase Level 677*H, Lipase > 2000H Height (Feet): 6 Height (Inches): 0.00 Weight (Pounds): 170 Objective PHYSICAL EXAMINATION: GENERAL: Alert, awake, and oriented. LUNGS: Decreased breath sounds bilaterally. HEART: Regular. ABDOMEN: Tenderness to palpation. EXTREMITIES: No cyanosis. No clubbing. NEURO: No changes. Assessment/Plan Assessment/Plan: (1) Abdominal pain (2) Pancreatitis Patient to be continued on [place] D/w Dr. Johnston and he concurred. Chirag Anderson Dec 21, 2020 08:36
[2020-12-21] MEDS: Thiamine 100mg tab ORAL SCH (08:45)
[2020-12-21 09:51] LABS: BASOPHILS % (AUTO) 2.2 % (0.0-2.0); EOSINOPHILS % (AUTO) 6.9 % (0.0-3.0); HEMATOCRIT 25.6 % (42.0-52.0); HEMOGLOBIN 8.5 G/DL (14.2-18.0); LYMPHOCYTES % (AUTO) 28.1 % (20.0-45.0); MEAN CORPUSCULAR VOLUME 103 FL (80-99); MONOCYTES % (AUTO) 11.3 % (1.0-10.0); NEUTROPHILS % (AUTO) 51.4 % (45.0-75.0); PLATELET COUNT 127 K/UL (150-450); RED BLOOD COUNT 2.49 M/UL (4.70-6.10); RED CELL DISTRIBUTION WIDTH 13.3 % (11.6-14.8); WHITE BLOOD COUNT 3.7 K/UL (4.8-10.8)
[2020-12-21 10:39] LABS: ALANINE AMINOTRANSFERASE 24 U/L (12-78); ALBUMIN/GLOBULIN RATIO 0.4 (1.0-2.7); ALKALINE PHOSPHATASE 80 U/L (46-116); AMYLASE 446 U/L (25-115); ANION GAP 7 mmol/L (5-15); ASPARTATE AMINO TRANSFERASE 49 U/L (15-37); BILIRUBIN,TOTAL 6.5 MG/DL (0.2-1.0); BLOOD UREA NITROGEN 10 mg/dL (7-18); CARBON DIOXIDE 24 MMOL/L (21-32); CHLORIDE 107 MMOL/L (98-107); CREATININE 0.6 MG/DL (0.55-1.30); POTASSIUM 3.7 MMOL/L (3.5-5.1); SODIUM 138 MMOL/L (136-145)
[2020-12-21 10:45] LABS: BILIRUBIN,DIRECT 4.4 MG/DL (0.0-0.3)
[2020-12-21 12:00] VITALS: BP 114/74
--- NOTE | 2020-12-21 13:40 | NUR ---
CASE MANAGEMENT:REVIEW 12/21/20 SI: ACUTE PANCREATITIS 98.2 78 20 114/74 98% ON RA H/H-8.5/25.6 PLT-127 AMYLASE+446 LIPASE+906 IS: IV LEVAQUIN Q24 THIAMINE PO QD CREON PO TID WM NORCO PO Q4HRS PRN : MED/SURG 4 EAST DCP: FROM HOME
[2020-12-21 16:00] VITALS: BP 123/70
--- NOTE | 2020-12-21 16:54 | General Progress Note ---
Subjective Allergies: Coded Allergies: No Known Allergies (Unverified , 12/15/20) Subjective pain controlled with po meds tolerating diet Objective Last 24 Hour Vital Signs Date Time Temp Pulse Resp B/P (MAP) Pulse Ox O2 Delivery O2 Flow Rate FiO2 12/21/20 12:00 98.2 78 20 114/74 (87) 98 12/21/20 09:00 Room Air 12/21/20 08:00 97.9 75 20 121/68 (85) 98 12/21/20 04:00 97.9 79 18 107/75 (86) 97 12/20/20 23:50 97.9 75 18 122/74 (90) 97 12/20/20 21:00 Room Air 12/20/20 20:00 98.3 82 18 114/70 (85) 97 Intake and Output 12/20/20 12/21/20 19:00 07:00 Intake Total 840 ml 100 ml Output Total 400 ml Balance 840 ml -300 ml Intake Oral 840 ml IV Total 100 ml Output Urine Total 400 ml # Voids 2 Laboratory Tests 12/21/20 09:10: White Blood Count 3.7L, Red Blood Count 2.49L, Hemoglobin 8.5L, Hematocrit 25.6L , Mean Corpuscular Volume 103H, Mean Corpuscular Hemoglobin 34.2H, Mean Corpuscular Hemoglobin Concent 33.2, Red Cell Distribution Width 13.3, Platelet Count 127L, Mean Platelet Volume 5.8L, Neutrophils (%) (Auto) 51.4, Lymphocytes (%) (Auto) 28.1, Monocytes (%) (Auto) 11.3H, Eosinophils (%) (Auto) 6.9H, Basophils (%) (Auto) 2.2H, Sodium Level 138, Potassium Level 3.7, Chloride Level 107, Carbon Dioxide Level 24, Anion Gap 7, Blood Urea Nitrogen 10, Creatinine 0.6, Estimat Glomerular Filtration Rate > 60, Glucose Level 88, Calcium Level 8.0L, Total Bilirubin 6.5H, Direct Bilirubin 4.4H, Aspartate Amino Transf (AST/SGOT) 49H, Alanine Aminotransferase (ALT/SGPT) 24, Alkaline Phosphatase 80, Total Protein 6.5, Albumin 2.0L, Globulin 4.5, Albumin/Globulin Ratio 0.4L, Amylase Level 446H, Lipase 906H Height (Feet): 6 Height (Inches): 0.00 Weight (Pounds): 170 General Appearance: alert EENT: PERRL/EOMI Neck: supple Cardiovascular: normal rate Respiratory/Chest: normal breath sounds Abdomen: soft, tender Assessment/Plan Assessment/Plan: ac pancreatitis better anemia hx etoh abused add po pain meds pain management on the change to liquid diet back gi on consult dc ivf dc plan to home tomorrow Charlie Lott MD Dec 21, 2020 16:54
--- NOTE | 2020-12-21 18:23 | NUR ---
INSURANCE CLINICALS/REVIEW FAXED TO [facility] [phone]
--- NOTE | 2020-12-21 19:12 | NUR ---
NURSE HAND-OFF: Important Events on Shift:Pain management, and d/c planning for tomorrow Patient Status: stable Diet: soft diet Pending Orders: n/a Pending Results/Labs:n/a Pending MD notification:n/a Latest Vital Signs: Temperature 98.0 , Pulse 70 , B/P 123 /70 , Respiratory Rate 20 , O2 SAT 96 , Room Air, O2 Flow Rate . Vital Sign Comment: n/a Latest Fragoso Fall Score: 35 Fall Risk: Medium Risk Safety Measures: Call light Within Reach, Bed Alarm , Side Rails Side Rails x2, Bed position Low and Locked. Fall Precautions: Yellow Socks Door Sign Patient Fall Education Report given to DELIA Deutsch.
--- NOTE | 2020-12-21 19:51 | NUR ---
NURSE NOTES: Patient in bed, awake, alert and verbally responsive. Able to make needs known. Respiration is even and unlabored. Kept clean and comfortable. Provided safe environment. No complaint of pain or discomfort at the moment. Iv site noted. Abdomen is soft. Skin is warm and dry to touch. bed in low and locked position. Call light is at bedside. Will continue plan of care.
[2020-12-21 20:00] VITALS: BP 125/67
--- NOTE | 2020-12-21 21:18 | NUR ---
NURSE NOTES: Complained of increasing pain now at 8/10 scale, from the lower abdomen. Given PRn pain medication as ordered, will reassess patient. Call light
[2020-12-22] VITALS: BP 115/74
[2020-12-22] MEDS: HYDROcodone/Acetamin 10/325 tab ORAL PRN ×4 (01:00→14:12)
[2020-12-22 04:00] VITALS: BP 108/70
[2020-12-22] MEDS: Creon DR 36,000 units cap ORAL SCH ×2 (07:09→12:31)
--- NOTE | 2020-12-22 07:26 | NUR ---
NURSE HAND-OFF: Important Events on Shift:WNL Patient Status: Diet: SOFT Diet Pending Orders: Pending Results/Labs: Pending MD notification: Latest Vital Signs: Temperature 98.1 , Pulse 78 , B/P 108 /70 , Respiratory Rate 16 , O2 SAT 97 , Room Air, O2 Flow Rate . Vital Sign Comment: WNL Latest Fragoso Fall Score: 35 Fall Risk: Medium Risk Safety Measures: Call light Within Reach, Bed Alarm , Side Rails Side Rails x2, Bed position Low and Locked. Fall Precautions: Yellow Socks Door Sign Patient Fall Education Report given to DELIA Betancourt.
--- NOTE | 2020-12-22 07:30 | NUR ---
NURSE NOTES: Handoff received from Get LIN. Patient is asleep, no sings of distress noted, no reports of pain or discomfort at this time. Left AC IV is intact and saline locked. Bed is low and locked, side rails up x2, call light is within reach.
[2020-12-22 07:56] LABS: HEMATOCRIT 26.3 % (42.0-52.0); HEMOGLOBIN 8.7 G/DL (14.2-18.0); MEAN CORPUSCULAR VOLUME 103 FL (80-99); PLATELET COUNT 141 K/UL (150-450); RED BLOOD COUNT 2.56 M/UL (4.70-6.10); RED CELL DISTRIBUTION WIDTH 12.7 % (11.6-14.8); WHITE BLOOD COUNT 3.2 K/UL (4.8-10.8)
[2020-12-22 08:00] VITALS: BP 114/75
[2020-12-22] MEDS: Thiamine 100mg tab ORAL SCH (08:01)
[2020-12-22 08:26] LABS: ALANINE AMINOTRANSFERASE 22 U/L (12-78); ALBUMIN 2.1 G/DL (3.4-5.0); ALBUMIN/GLOBULIN RATIO 0.4 (1.0-2.7); ALKALINE PHOSPHATASE 94 U/L (46-116); AMYLASE 335 U/L (25-115); ANION GAP 7 mmol/L (5-15); ASPARTATE AMINO TRANSFERASE 54 U/L (15-37); BILIRUBIN,TOTAL 6.1 MG/DL (0.2-1.0); BLOOD UREA NITROGEN 9 mg/dL (7-18); CARBON DIOXIDE 24 MMOL/L (21-32); CHLORIDE 108 MMOL/L (98-107); CREATININE 0.5 MG/DL (0.55-1.30); POTASSIUM 3.7 MMOL/L (3.5-5.1); SODIUM 139 MMOL/L (136-145)
[2020-12-22 08:43] LABS: BILIRUBIN,DIRECT 4.4 MG/DL (0.0-0.3)
--- NOTE | 2020-12-22 08:45 | General Progress Note ---
Subjective Date patient seen: Dec 22, 2020 Time patient seen: 07:00 - am Allergies: Coded Allergies: No Known Allergies (Unverified , 12/15/20) Subjective HISTORY OF PRESENT ILLNESS: This is a 30-year-old male who is being seen on the Med\Surg floor of [facility]. Patient states no changes to his pain which has been at a moderate level tolerated on the [place]. No new complaints at this time. REVIEW OF SYSTEMS: Denies rash, fever, chills, sweating, dizziness, drowsiness, blurred vision. No shortness of breath or chest pain. Not complaining of nausea and vomiting. No diarrhea or blood in the stool. No dysuria. Objective Last 24 Hour Vital Signs Date Time Temp Pulse Resp B/P (MAP) Pulse Ox O2 Delivery O2 Flow Rate FiO2 12/22/20 04:00 98.1 78 16 108/70 (83) 97 12/22/20 00:00 98.7 83 18 115/74 (88) 98 12/21/20 21:07 Room Air 12/21/20 20:00 97.8 82 18 125/67 (86) 98 12/21/20 16:00 98.0 70 20 123/70 (87) 96 12/21/20 12:00 98.2 78 20 114/74 (87) 98 12/21/20 09:00 Room Air Intake and Output 12/21/20 12/22/20 19:00 07:00 Intake Total 1080 ml Output Total 1600 ml 800 ml Balance -520 ml -800 ml Intake Oral 1080 ml Output Urine Total 1600 ml 800 ml # Voids 2 Laboratory Tests 12/21/20 09:10: White Blood Count 3.7L, Red Blood Count 2.49L, Hemoglobin 8.5L, Hematocrit 25.6L , Mean Corpuscular Volume 103H, Mean Corpuscular Hemoglobin 34.2H, Mean Corpuscular Hemoglobin Concent 33.2, Red Cell Distribution Width 13.3, Platelet Count 127L, Mean Platelet Volume 5.8L, Neutrophils (%) (Auto) 51.4, Lymphocytes (%) (Auto) 28.1, Monocytes (%) (Auto) 11.3H, Eosinophils (%) (Auto) 6.9H, Basophils (%) (Auto) 2.2H, Sodium Level 138, Potassium Level 3.7, Chloride Level 107, Carbon Dioxide Level 24, Anion Gap 7, Blood Urea Nitrogen 10, Creatinine 0.6, Estimat Glomerular Filtration Rate > 60, Glucose Level 88, Calcium Level 8.0L, Total Bilirubin 6.5H, Direct Bilirubin 4.4H, Aspartate Amino Transf (AST/SGOT) 49H, Alanine Aminotransferase (ALT/SGPT) 24, Alkaline Phosphatase 80, Total Protein 6.5, Albumin 2.0L, Globulin 4.5, Albumin/Globulin Ratio 0.4L, Amylase Level 446H, Lipase 906H 12/22/20 07:37: White Blood Count 3.2L, Red Blood Count 2.56L, Hemoglobin 8.7L, Hematocrit 26.3L , Mean Corpuscular Volume 103H, Mean Corpuscular Hemoglobin 34.0H, Mean Corpuscular Hemoglobin Concent 33.1, Red Cell Distribution Width 12.7, Platelet Count 141L, Mean Platelet Volume 5.9L, Neutrophils (%) (Auto) , Lymphocytes (%) (Auto) , Monocytes (%) (Auto) , Eosinophils (%) (Auto) , Basophils (%) (Auto) , Sodium Level 139, Potassium Level 3.7, Chloride Level 108H, Carbon Dioxide Level 24, Anion Gap 7, Blood Urea Nitrogen 9, Creatinine 0.5L, Estimat Glomerular Filtration Rate > 60, Glucose Level 79, Calcium Level 8.0L, Total Bilirubin 6.1H , Direct Bilirubin 4.4H, Aspartate Amino Transf (AST/SGOT) 54H, Alanine Aminotransferase (ALT/SGPT) 22, Alkaline Phosphatase 94, Total Protein 6.9, Albumin 2.1L, Globulin 4.8, Albumin/Globulin Ratio 0.4L, Amylase Level 335H, Lipase 726H, Neutrophils % (Manual) [Pending], Lymphocytes % (Manual) [Pending], Platelet Estimate [Pending], Platelet Morphology [Pending] Height (Feet): 6 Height (Inches): 0.00 Weight (Pounds): 170 Objective PHYSICAL EXAMINATION: GENERAL: Alert, awake, and oriented. LUNGS: Decreased breath sounds bilaterally. HEART: Regular. ABDOMEN: Tenderness to palpation. EXTREMITIES: No cyanosis. No clubbing. NEURO: No changes. Assessment/Plan Assessment/Plan: (1) Abdominal pain (2) Pancreatitis Patient to be continued on [place] D/w Dr. Johnston and he concurred. Chirag Anderson Dec 22, 2020 08:45
--- NOTE | 2020-12-22 10:15 | NUR ---
CASE MANAGEMENT:REVIEW 12/22/20 SI: ACUTE PANCREATITIS 97.9 83 20 114/75 98% ON RA WBC-3.2 H/H-8.7/26.3 PLT-141 AMYLASE+335 LIPSE+726 IS: IV LEVAQUIN Q24 THIAMINE PO QD CREON PO TID WM NORCO PO Q4HRS PRN : MED/SURG 4 EAST DCP: FROM HOME PLAN: MONITOR LIPASE AND AMYLASE LEVELS THEY ARE TRENDING DOWN Addendum: 12/22/20 at 1023 by CHINO FLEMING LVN LVN START SOFT DIET
--- NOTE | 2020-12-22 11:41 | General Progress Note ---
Subjective Allergies: Coded Allergies: No Known Allergies (Unverified , 12/15/20) Subjective pain controlled with po meds tolerating diet doing better Objective Last 24 Hour Vital Signs Date Time Temp Pulse Resp B/P (MAP) Pulse Ox O2 Delivery O2 Flow Rate FiO2 12/22/20 10:18 98.1 12/22/20 09:00 Room Air 12/22/20 08:00 97.9 83 20 114/75 (88) 98 12/22/20 04:00 98.1 78 16 108/70 (83) 97 12/22/20 00:00 98.7 83 18 115/74 (88) 98 12/21/20 21:07 Room Air 12/21/20 20:00 97.8 82 18 125/67 (86) 98 12/21/20 16:00 98.0 70 20 123/70 (87) 96 12/21/20 12:00 98.2 78 20 114/74 (87) 98 Intake and Output 12/21/20 12/22/20 19:00 07:00 Intake Total 1080 ml Output Total 1600 ml 800 ml Balance -520 ml -800 ml Intake Oral 1080 ml Output Urine Total 1600 ml 800 ml # Voids 2 Laboratory Tests 12/22/20 07:37: White Blood Count 3.2L, Red Blood Count 2.56L, Hemoglobin 8.7L, Hematocrit 26.3L , Mean Corpuscular Volume 103H, Mean Corpuscular Hemoglobin 34.0H, Mean Corpuscular Hemoglobin Concent 33.1, Red Cell Distribution Width 12.7, Platelet Count 141L, Mean Platelet Volume 5.9L, Neutrophils (%) (Auto) , Lymphocytes (%) (Auto) , Monocytes (%) (Auto) , Eosinophils (%) (Auto) , Basophils (%) (Auto) , Differential Total Cells Counted 100, Neutrophils % (Manual) 60, Lymphocytes % (Manual) 26, Monocytes % (Manual) 8, Eosinophils % (Manual) 5H, Basophils % (Manual) 1, Band Neutrophils 0, Platelet Estimate DecreasedL, Platelet Morphology Normal, Hypochromasia , Macrocytosis 1+, Schistocytes Occasional, Sodium Level 139, Potassium Level 3.7, Chloride Level 108H, Carbon Dioxide Level 24, Anion Gap 7, Blood Urea Nitrogen 9, Creatinine 0.5L, Estimat Glomerular Filtration Rate > 60, Glucose Level 79, Calcium Level 8.0L, Total Bilirubin 6.1H , Direct Bilirubin 4.4H, Aspartate Amino Transf (AST/SGOT) 54H, Alanine Aminotransferase (ALT/SGPT) 22, Alkaline Phosphatase 94, Total Protein 6.9, Albumin 2.1L, Globulin 4.8, Albumin/Globulin Ratio 0.4L, Amylase Level 335H, Lipase 726H Height (Feet): 6 Height (Inches): 0.00 Weight (Pounds): 170 General Appearance: alert EENT: PERRL/EOMI Neck: supple Cardiovascular: regular rhythm Respiratory/Chest: lungs clear Abdomen: non tender, soft Assessment/Plan Assessment/Plan: ac pancreatitis better anemia hx etoh abused add po pain meds pain management on the change to liquid diet back gi on consult dc ivf dc to home fu in office 1 wk quit etoh easy on food Charlie Lott MD Dec 22, 2020 11:41
[2020-12-22 12:00] VITALS: BP 122/82
--- NOTE | 2020-12-22 12:36 | NUR ---
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 PT VERBALIZED UNDERSTANDING OF MAKING AN APPOINTMENT.OK TO DC PT.
--- NOTE | 2020-12-22 12:52 | General Progress Note ---
Subjective ROS Limited/Unobtainable: Yes Allergies: Coded Allergies: No Known Allergies (Unverified , 12/15/20) Objective Last 24 Hour Vital Signs Date Time Temp Pulse Resp B/P (MAP) Pulse Ox O2 Delivery O2 Flow Rate FiO2 12/22/20 10:18 98.1 12/22/20 09:00 Room Air 12/22/20 08:00 97.9 83 20 114/75 (88) 98 12/22/20 04:00 98.1 78 16 108/70 (83) 97 12/22/20 00:00 98.7 83 18 115/74 (88) 98 12/21/20 21:07 Room Air 12/21/20 20:00 97.8 82 18 125/67 (86) 98 12/21/20 16:00 98.0 70 20 123/70 (87) 96 Intake and Output 12/21/20 12/22/20 19:00 07:00 Intake Total 1080 ml Output Total 1600 ml 800 ml Balance -520 ml -800 ml Intake Oral 1080 ml Output Urine Total 1600 ml 800 ml # Voids 2 Laboratory Tests 12/22/20 07:37: White Blood Count 3.2L, Red Blood Count 2.56L, Hemoglobin 8.7L, Hematocrit 26.3L , Mean Corpuscular Volume 103H, Mean Corpuscular Hemoglobin 34.0H, Mean Corpuscular Hemoglobin Concent 33.1, Red Cell Distribution Width 12.7, Platelet Count 141L, Mean Platelet Volume 5.9L, Neutrophils (%) (Auto) , Lymphocytes (%) (Auto) , Monocytes (%) (Auto) , Eosinophils (%) (Auto) , Basophils (%) (Auto) , Differential Total Cells Counted 100, Neutrophils % (Manual) 60, Lymphocytes % (Manual) 26, Monocytes % (Manual) 8, Eosinophils % (Manual) 5H, Basophils % (Manual) 1, Band Neutrophils 0, Platelet Estimate DecreasedL, Platelet Morphology Normal, Hypochromasia , Macrocytosis 1+, Schistocytes Occasional, Sodium Level 139, Potassium Level 3.7, Chloride Level 108H, Carbon Dioxide Level 24, Anion Gap 7, Blood Urea Nitrogen 9, Creatinine 0.5L, Estimat Glomerular Filtration Rate > 60, Glucose Level 79, Calcium Level 8.0L, Total Bilirubin 6.1H , Direct Bilirubin 4.4H, Aspartate Amino Transf (AST/SGOT) 54H, Alanine Aminotransferase (ALT/SGPT) 22, Alkaline Phosphatase 94, Total Protein 6.9, Albumin 2.1L, Globulin 4.8, Albumin/Globulin Ratio 0.4L, Amylase Level 335H, Lipase 726H Height (Feet): 6 Height (Inches): 0.00 Weight (Pounds): 170 General Appearance: no apparent distress EENT: normal ENT inspection Neck: supple Cardiovascular: normal rate Respiratory/Chest: decreased breath sounds Abdomen: normal bowel sounds, non tender, soft Extremities: non-tender Assessment/Plan Assessment/Plan: Assessment/Plan Assessment/Plan: Assessment - Chronic alcohol abuse - h/o EtOH pancreatitis with pseudocyst - Recurrent pancreatitis off of EtOH - Elevated bilirubin, presumed from EtOH hepatitis - anemia Recommendations - IVF - MVI - Thiamine - Follow labs - MRCP reviewed>>>6.6 cm psudocyst>>>needs out patient fu imaging in 4 weeks -pain control -add creon -repeat labs Yaron Sandoval MD Dec 22, 2020 12:52
--- NOTE | 2020-12-22 13:54 | NUR ---
INSURANCE [employer]INICALS/REVIEW FAXED TO [facility] [phone]
--- NOTE | 2020-12-22 14:49 | NUR ---
NURSE NOTES: Patient safely discharged from to home via private vehicle with family member. PAtient information packet provided, questions answered. prescriptions and education provided. Belongings list verified and signed, IV and ID wristband removed. Patient to follow up with PCP in one week.
--- NOTE | 2020-12-25 15:21 | Discharge Summary ---
Discharge Summary Discharge Summary _ Date of admission: 12/15/2020 Date of discharge: 12/22/[address] Lott History of Present Illness and Brief Hospital Course Mr. Wetzel is a 30-year-old male who presented to ED for evaluation of abdominal pain x2 days. He reported the pain was 8 out of 10 in severity, dull in nature, and nonradiating. Patient reported having pancreatitis in the past. The initial laboratory studies were remarkable for absence of leukocytosis, stable H&H, and electrolytes within normal limits. Lipase, AST, and ALT were elevated. CT abdomen and pelvis revealed findings consistent with pancreatitis with pseudocyst. Patient was admitted to the hospital for further management. Patient was kept n.p.o. and was given IV fluids. Abdominal MRI showed 6.6 x 6.8 x 6.8 cm pancreatic tail cystic mass which was most likely a pancreatic pseudocyst. It was negative for gallstones or dilated bile ducts, however. Mild to moderate ascites were identified along with massive splenomegaly and large bilateral pleural effusions. No acute surgical intervention was indicated at the time. Patient reported chronic alcohol abuse. Patient was strongly educated on discontinuing alcohol. Patient was given thiamine, Creon and pain medication. Patient was medically stable for discharge and was discharged home on 12/22/2020. Patient is to follow-up for a repeat imaging in 4-6 weeks. Consultants: Surgery Dr. Mittal Gastroenterology Dr. Berrios Discharge Condition Improved and stable Final diagnoses Chronic alcohol abuse History of alcohol induced pancreatitis with pseudocyst Elevated bilirubin Anemia Ascites Splenomegaly Bilateral pleural effusions Pancreatic pseudocyst I have been assigned to dictate discharge summary for this account. I was not involved in the patient's management Abdi Zhang Dec 25, 2020 15:21
== END 2020-12-22 14:50 | disposition home or self-care (01) | DRG 282 ==
LOC: EMR 18:03 → EDBEDREQ 19:22 → 4E 19:55 → EDBEDREQ 21:03
DX: K85.20 Alcohol induced acute pancreatitis without necrosis or infection (principal); E43 Unspecified severe protein-calorie malnutrition; K70.10 Alcoholic hepatitis without ascites; D64.9 Anemia, unspecified; K76.6 Portal hypertension; K86.3 Pseudocyst of pancreas; J90 Pleural effusion, not elsewhere classified; R18.8 Other ascites; K21.9 Gastro-esophageal reflux disease without esophagitis; K76.0 Fatty (change of) liver, not elsewhere classified
CPT/HCPCS: 36415; 74177; 74183; 76700; 80053; 80061; 81003; 82150; 82248; 83605; 83690; 84134; 85007; 85025; 85610; 85651; 85730; 86140; 96361; 96374; 96375; 99285; A9585; J2405; J7030

== ENCOUNTER 2020-12-30 21:28 | Inpatient (IN) | payer MEDICAID, OTHER ==
[~2020-12-30] VITALS: Ht 182.9 cm; Wt 77.1 kg
[~2020-12-30 21:28] MED LIST: FOLIC ACID1 MG ORAL; FUROSEMIDE40 MG ORAL; MAGNESIUM OXID400 M1 ORAL; MULTIVITAMINS1 EAC2 ORAL; SPIRONOLACTONE25 MG ORAL
--- NOTE | 2020-12-30 21:40 | NUR ---
ED Nurse Note: Patient came in the ED with complaints of increasing left lower abdominal pain for the past two days. Patient is AOx4, IV 20g inserted to right AC, patent.
--- NOTE | 2020-12-30 21:43 | Emergency Room Report ---
History of Present Illness General Chief Complaint: Abdominal Pain Source: Patient, Medical Record Present Illness HPI This is a 30-year-old male with a history of alcoholic liver disease with ascites and previous pancreatitis. He was a heavy drinker. He relapsed several times in the past. He has been sober for 3 months now. He presents with chief complaint of left lower quadrant pain. Onset for last 2 days. Pain is 9 out of 10. Worse with movement. Better with rest. Worse with palpation also. No radiation of the pain. No fever. No nausea vomiting or diarrhea. This is not typical from his previous pain. Most of his of the pain has been in the upper quadrants. He said his liver enzymes last check was actually improving. 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 COVID-19 Screening: Negative COVID-19 COVID-19 Testing Source: [facility] Patient History Past Medical History: see triage record, old chart reviewed Past Surgical History: none Pertinent Family History: none Social History: Reports: alcohol use - History of Immunizations: other Reviewed Nursing Documentation: PMH: Agreed; PSxH: Agreed Nursing Documentation-PMH Hx Cardiac Problems: No Hx Cancer: No Hx Gastrointestinal Problems: Yes Hx Neurological Problems: No Review of Systems Eye: Denies: eye pain, blurred vision ENT: Denies: ear pain, nose congestion, throat swelling Respiratory: Denies: cough, shortness of breath Cardiovascular: Denies: chest pain, palpitations Gastrointestinal: Reports: abdominal pain; Denies: diarrhea, nausea, vomiting Musculoskeletal: Denies: back pain, joint pain Skin: Denies: rash Neurological: Denies: headache, numbness Endocrine: Denies: increased thirst, increased urine Hematologic/Lymphatic: Denies: easy bruising All Other Systems: negative except mentioned in HPI Physical Exam Vital Signs Date Time Temp Pulse Resp B/P (MAP) Pulse Ox O2 Delivery O2 Flow Rate FiO2 12/30/20 21:31 98.6 101 18 129/82 (98) 94 Room Air Vitals normal Sp02 EP Interpretation: reviewed, normal General Appearance: no apparent distress, alert, cachetic Head: normocephalic, atraumatic Eyes: bilateral eye PERRL, bilateral eye EOMI, bilateral eye scleral icterus ENT: hearing grossly normal, normal pharynx Neck: full range of motion, supple, no meningismus Respiratory: chest non-tender, lungs clear, normal breath sounds Cardiovascular #1: regular rate, rhythm, no murmur Gastrointestinal: normal bowel sounds, no mass, no organomegaly, no bruit, non- distended, tenderness - Left lower quadrant, other - Ascites, but not tense Musculoskeletal: back normal, normal range of motion, gait/station normal Psychiatric: mood/affect normal Skin: jaundice Medical Decision Making Diagnostic Impression: Primary Impression: Pancreatitis Qualified Codes: K85.20 - Alcohol induced acute pancreatitis without necrosis or infection Additional Impression: Alcoholic cirrhosis of liver with ascites ER Course This patient presents with abdominal pain. Lipase is elevated. CT still showed peripancreatic stranding but improved. Patient be admitted to the hospital for pain control and IV fluid. Patient will be admitted to Dr. Lott because the last admission was less than [address]/MRI/US Diagnostic Results CT/MRI/US Diagnostic Results : Imaging Test Ordered: CT abdomen and pelvis Impression Read by radiologist. Peripancreatic inflammatory changes. Slight interval decrease in size of fluid collection adjacent to the pancreatic tail. Cirrhosis with evidence of portal hypertension. Stable bilateral pleural effusion. Unchanged mild to moderate ascites. Last Vital Signs Date Time Temp Pulse Resp B/P (MAP) Pulse Ox O2 Delivery O2 Flow Rate FiO2 12/30/20 21:31 98.6 101 18 129/82 (98) 94 Room Air Status: improved Disposition: ADMITTED INPATIENT Condition: Serious Referrals: NOT CHOSEN IPA/,REFERRING (PCP) Wily Pereira MD Dec 30, 2020 21:43
[2020-12-30] MEDS ORDERED: Morphine Sulfate 4mg/ml Inj (IV USE ONLY) IVP ONE (21:45)
--- NOTE | 2020-12-30 22:00 | NUR ---
ED Nurse Note: Patient is off the Unit with radiology personnel for CT of abd. stable
--- NOTE | 2020-12-30 22:00 | NUR ---
ED Nurse Note: Unable to collect urine sample, pt voided few minutes ago.
[2020-12-30 22:07] LABS: BASOPHILS % (AUTO) 1.9 % (0.0-2.0); EOSINOPHILS % (AUTO) 3.2 % (0.0-3.0); HEMATOCRIT 29.9 % (42.0-52.0); HEMOGLOBIN 9.6 G/DL (14.2-18.0); LYMPHOCYTES % (AUTO) 20.7 % (20.0-45.0); MEAN CORPUSCULAR VOLUME 105 FL (80-99); MONOCYTES % (AUTO) 7.8 % (1.0-10.0); NEUTROPHILS % (AUTO) 66.4 % (45.0-75.0); PLATELET COUNT 131 K/UL (150-450); RED BLOOD COUNT 2.84 M/UL (4.70-6.10); RED CELL DISTRIBUTION WIDTH 12.5 % (11.6-14.8); WHITE BLOOD COUNT 5.6 K/UL (4.8-10.8)
[2020-12-30 22:17] LABS: ANION GAP 9 mmol/L (5-15); BLOOD UREA NITROGEN 11 mg/dL (7-18); CALCIUM 8.2 MG/DL (8.5-10.1); CARBON DIOXIDE 21 MMOL/L (21-32); CHLORIDE 110 MMOL/L (98-107); CREATININE 0.7 MG/DL (0.55-1.30); POTASSIUM 4.2 MMOL/L (3.5-5.1); SODIUM 140 MMOL/L (136-145)
[2020-12-30 22:28] LABS: ALANINE AMINOTRANSFERASE 26 U/L (12-78); ALBUMIN 2.5 G/DL (3.4-5.0); ALBUMIN/GLOBULIN RATIO 0.5 (1.0-2.7); ALKALINE PHOSPHATASE 138 U/L (46-116); ASPARTATE AMINO TRANSFERASE 63 U/L (15-37); BILIRUBIN,TOTAL 5.1 MG/DL (0.2-1.0)
[2020-12-30 22:29] LABS: BILIRUBIN,DIRECT 3.3 MG/DL (0.0-0.3)
--- NOTE | 2020-12-30 22:29 | Diagnostic Imaging Report ---
EXAM: CT Abdomen and Pelvis Without Intravenous Contrast CLINICAL HISTORY: ABD PAIN TECHNIQUE: Axial computed tomography images of the abdomen and pelvis without intravenous contrast. CTDI is 5.0 mGy and DLP is 285.8 mGy-cm. One or more of the following dose reduction techniques were used: automated exposure control, adjustment of the mA and/or kV according to patient size, use of iterative reconstruction technique. COMPARISON: CT 12/15/2020. FINDINGS: Evaluation of the soft tissue and vasculature is limited on this noncontrast exam. Lung bases: Stable partially visualized bilateral large pleural effusions with lower lobe compressive atelectasis. Trace pericardial effusion. ABDOMEN: Liver: Mild nodularity of the liver surface consistent with cirrhosis. There is evidence of portal hypertension including a recanalized paraumbilical vein and splenomegaly. Gallbladder and bile ducts: Gallbladder wall thickening however this is nonspecific, especially in the setting of chronic liver disease. No calcified gallstones identified. Pancreas: Again identified are mabel-pancreatic inflammatory changes. Slight interval increase in size of an organized fluid collection adjacent to the pancreatic tail previously measuring 65 mm and currently measuring up to 68 mm. No other organized fluid collection identified. Spleen: Again noted is splenomegaly. Adrenals: Unremarkable. No mass. Kidneys and ureters: Unremarkable. No obstructing stones. No hydronephrosis. Stomach and bowel: Unremarkable. No obstruction. No mucosal thickening. PELVIS: Appendix: Normal appendix (4: 120). Bladder: The wall appears mildly thickened however this is likely related to the lack of distention. Reproductive: Unremarkable as visualized. ABDOMEN and PELVIS: Intraperitoneal space: No free air. Unchanged mild to moderate volume ascites. Bones/joints: Unremarkable. Soft tissues: Mild anasarca. Vasculature: No abdominal aortic aneurysm. Lymph nodes: No enlarged lymph nodes. IMPRESSION: 1. Peripancreatic inflammatory changes are again noted. Correlate with amylase and lipase for recurrent pancreatitis. 2. Slight interval decrease in size of an organized fluid collection adjacent to the pancreatic tail. No new organized fluid collection identified. 3. No other new acute process identified within the abdomen or pelvis. 4. Cirrhosis with evidence of portal hypertension, as above. 5. Stable large bilateral pleural effusions with lower lobe compressive atelectasis. 6. Unchanged mild to moderate volume ascites.
[2020-12-30 22:33] VITALS: BP 124/76
[2020-12-30] MEDS ORDERED: Morphine Sulfate 4mg/ml Inj (IV USE ONLY) IVP PRN (23:30)
--- NOTE | 2020-12-30 23:55 | NUR ---
Report given to DELIA Remy, on [facility] unit.
--- NOTE | 2020-12-31 | NUR ---
Patient transported to [address] [place] [address].
--- NOTE | 2020-12-31 00:10 | NUR ---
TRANSFER TO FLOOR: Patient transferred [id number] as ordered, per ER doctor Kelli. Report given to nurse Sandrita RN. Belongings and given to.pt.
[2020-12-31 00:13] VITALS: BP 117/75
--- NOTE | 2020-12-31 00:15 | NUR ---
NURSE NOTES: Admitted patient awake, alert, verbal, ambulatory, with essentially normal vital signs.
[2020-12-31] MEDS: Morphine Sulfate 2mg/ml Inj(IV/IM USE ONLY) IVP PRN ×5 (03:31→21:05)
[2020-12-31 03:57] VITALS: BP 120/63
--- NOTE | 2020-12-31 06:14 | NUR ---
NURSE HAND-OFF: Important Events on Shift:[]prn pain medications Patient Status: []Stable Diet: []NPO Pending Orders: [] Pending Results/Labs:[] Pending MD notification:[] Latest Vital Signs: Temperature 97.7 , Pulse 72 , B/P 120 /63 , Respiratory Rate 16 , O2 SAT 96 , Room Air, O2 Flow Rate . Vital Sign Comment: [] Latest Fragoso Fall Score: 15 Fall Risk: Low Risk Safety Measures: Call light Within Reach, Bed Alarm Zone 2, Side Rails Side Rails x2, Bed position Low and Locked. Fall Precautions: Yellow Socks Report given to [].
[2020-12-31 06:43] LABS: APPEARANCE,URINE SLIGHTLY CLOUDY; BILIRUBIN, URINE 1+ (NEGATIVE); COLOR,URINE BROWN; GLUCOSE, URINE (UA) NEGATIVE (NEGATIVE); KETONES,URINE NEGATIVE (NEGATIVE); LEUKOCYTE ESTERASE ,URINE 1+ (NEGATIVE); NITRITE,URINE NEGATIVE (NEGATIVE); PH,URINE 7 (4.5-8.0); PROTEIN,URINE NEGATIVE (NEGATIVE); UROBILINOGEN,URINE 1 MG/DL (0.0-1.0)
--- NOTE | 2020-12-31 07:32 | NUR ---
NURSE NOTES: HAndoff received from Sandrita LIN. PAtient is awake and alert, reporting pain 7/10 in the abdomen. Breathing is even and unlabored on room air. Right Ac IV is intact and running IVf as ordered. RN will medicate for pain as ordered. Bed is low and locked, side rails up x2, call light is within reach.
[2020-12-31 08:00] VITALS: BP 114/76
[2020-12-31] MEDS: Pantoprazole Inj IVP SCH (08:16)
--- NOTE | 2020-12-31 09:17 | History & Physical ---
History of Present Illness General Reason for Hospitalization: Abdominal Pain Present Illness Allergies: Coded Allergies: No Known Allergies (Unverified , 12/15/20) COVID-19 Screening Contact w/high risk pt: No Experienced COVID-19 symptoms?: No Medication History Scheduled Folic Acid* (Folic Acid*), 1 MG ORAL DAILY, (Reported) Furosemide* (Lasix*), 40 MG ORAL DAILY, (Reported) Magnesium Oxide (Magnesium Oxide), 400 MG ORAL DAILY, (Reported) Multivitamins* (Multivitamins*), 1 TAB ORAL DAILY, (Reported) Spironolactone* (Aldactone*), 25 MG ORAL DAILY, (Reported) Patient History Healthcare decision maker Resuscitation status Advanced Directive on File Review of Systems Review of Symptoms General ROS: no weight loss or fever Psychological ROS: no depression or mood changes, no memory loss Ophthalmic ROS: no visual changes or eye irritation ENT ROS: no nasal congestion, hearing loss, dizziness Allergy and Immunology ROS: no allergic symptoms or urticaria Hematological and Lymphatic ROS: no swollen glands, unusual bleeding or bruising Endocrine ROS: no polyuria, polydipsia, weight changes, temperature intolerance Respiratory ROS: no cough, shortness of breath, or wheezing Cardiovascular ROS: no chest pain or dyspnea on exertion Gastrointestinal ROS: denies abdominal pain, bright red blood in stool. Musculoskeletal ROS: no myalgias or arthralgias Neurological ROS: no TIA or stroke symptoms Dermatological ROS: no new or changing skin lesions, rashes or pruritis Physical Exam Physical Exam General appearance: alert, cooperative, no distress, appears stated age Head: Normocephalic, without obvious abnormality, atraumatic Eyes: conjunctivae/corneas clear. PERRL, EOM's intact. Fundi benign Throat: Lips, mucosa, and tongue normal. Teeth and gums normal Neck: supple, symmetrical, trachea midline, no adenopathy, thyroid: not enlarged, symmetric, no tenderness/mass/nodules, no carotid bruit and no JVD Lungs: clear to auscultation bilaterally Heart: regular rate and rhythm, S1, S2 normal, no murmur, click, rub or gallop Abdomen: soft, non-tender. Bowel sounds normal. No masses, no organomegaly Extremities: extremities normal, atraumatic, no cyanosis or edema Pulses: 2+ and symmetric Skin: Skin color, texture, turgor normal. No rashes or lesions Neurologic: Grossly normal Last 24 Hour Vital Signs Date Time Temp Pulse Resp B/P (MAP) Pulse Ox O2 Delivery O2 Flow Rate FiO2 12/31/20 04:02 97.7 12/31/20 03:57 97.7 72 16 120/63 (82) 96 12/31/20 00:13 98.0 77 18 117/75 (89) 96 12/31/20 00:12 Room Air 12/30/20 22:33 98.9 85 16 124/76 Room Air 12/30/20 22:04 85 Room Air 99 12/30/20 21:31 98.6 101 18 129/82 (98) 94 Room Air Intake and Output 12/30/20 12/31/20 19:00 07:00 Intake Total 501 ml Output Total 250 ml Balance 251 ml Intake Oral 1 ml IV Total 500 ml Output Urine Total 250 ml # Voids 2 Laboratory Tests Test 12/30/20 21:45 12/31/20 05:00 White Blood Count 5.6 K/UL (4.8-10.8) Red Blood Count 2.84 M/UL (4.70-6.10) L Hemoglobin 9.6 G/DL (14.2-18.0) L Hematocrit 29.9 % (42.0-52.0) L Mean Corpuscular Volume 105 FL (80-99) H Mean Corpuscular Hemoglobin 33.8 PG (27.0-31.0) H Mean Corpuscular Hemoglobin Concent 32.1 G/DL (32.0-36.0) Red Cell Distribution Width 12.5 % (11.6-14.8) Platelet Count 131 K/UL (150-450) L Mean Platelet Volume 6.8 FL (6.5-10.1) Neutrophils (%) (Auto) 66.4 % (45.0-75.0) Lymphocytes (%) (Auto) 20.7 % (20.0-45.0) Monocytes (%) (Auto) 7.8 % (1.0-10.0) Eosinophils (%) (Auto) 3.2 % (0.0-3.0) H Basophils (%) (Auto) 1.9 % (0.0-2.0) Sodium Level 140 MMOL/L (136-145) Potassium Level 4.2 MMOL/L (3.5-5.1) Chloride Level 110 MMOL/L (98-107) H Carbon Dioxide Level 21 MMOL/L (21-32) Anion Gap 9 mmol/L (5-15) Blood Urea Nitrogen 11 mg/dL (7-18) Creatinine 0.7 MG/DL (0.55-1.30) Estimat Glomerular Filtration Rate > 60 mL/min (>60) Glucose Level 112 MG/DL (74-106) H Calcium Level 8.2 MG/DL (8.5-10.1) L Total Bilirubin 5.1 MG/DL (0.2-1.0) H Direct Bilirubin 3.3 MG/DL (0.0-0.3) H Aspartate Amino Transf (AST/SGOT) 63 U/L (15-37) H Alanine Aminotransferase (ALT/SGPT) 26 U/L (12-78) Alkaline Phosphatase 138 U/L (46-116) H Total Protein 7.9 G/DL (6.4-8.2) Albumin 2.5 G/DL (3.4-5.0) L Globulin 5.4 g/dL Albumin/Globulin Ratio 0.5 (1.0-2.7) L Lipase > 2000 U/L (73-393) H Urine Color Brown Urine Appearance Slightly cloudy Urine pH 7 (4.5-8.0) Urine Specific [place] 1.010 (1.005-1.035) Urine Protein Negative (NEGATIVE) Urine Glucose (UA) Negative (NEGATIVE) Urine Ketones Negative (NEGATIVE) Urine Blood Negative (NEGATIVE) Urine Nitrite Negative (NEGATIVE) Urine Bilirubin 1+ (NEGATIVE) H Urine Ictotest Positive (NEGATIVE) Urine Urobilinogen 1 MG/DL (0.0-1.0) H Urine Leukocyte Esterase 1+ (NEGATIVE) H Urine RBC 0-2 /HPF (0 - 0) H Urine WBC 0-2 /HPF (0 - 0) Urine Squamous Epithelial Cells Occasional /LPF Urine Amorphous Sediment Few /LPF (NONE) H Urine Bacteria Occasional /HPF (NONE) Urine Mucus Moderate /LPF (NONE/OCC) H Height (Feet): 6 Height (Inches): 0.00 Weight (Pounds): 170 Medications Current Medications Medications (Trade) Dose Ordered Sig/Viji Route PRN Reason Start Time Stop Time Status Last Admin Dose Admin Morphine Sulfate (Morphine Sulfate) 2 mg Q4H PRN IVP For Pain 12/31/20 00:45 01/07/21 00:44 12/31/20 08:17 Ondansetron HCl (Zofran) 4 mg Q4H PRN IVP Nausea & Vomiting 12/31/20 00:45 01/30/21 00:44 Pantoprazole (Protonix) 40 mg DAILY IVP 12/31/20 09:00 01/30/21 08:59 12/31/20 08:16 Sodium Chloride 1,000 ml @ 100 mls/hr Q10H IV 12/31/20 00:45 01/30/21 00:44 12/31/20 00:47 Assessment/Plan Assessment/Plan: Internal Med H&P Covering Dr. Lott DOS: 12/31/2020 RFA: Pancreatitis ID This is a 30-year-old male with a history of alcoholic liver disease with ascites and previous pancreatitis. He was a heavy drinker. He relapsed several times in the past. He has been sober for 3 months now. He presents with chief complaint of left lower quadrant pain. Onset for last 2 days. Pain is 9 out of 10. Worse with movement. Better with rest. Worse with palpation also. No radiation of the pain. No fever. No nausea vomiting or diarrhea. This is not typical from his previous pain. Most of his of the pain has been in the upper quadrants. He said his liver enzymes last check was actually improving. 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 COVID-19 Screening: Negative COVID-19 COVID-19 Testing Source: [facility] Patient History Past Medical History: see triage record, old chart reviewed Past Surgical History: none Pertinent Family History: none Social History: Reports: alcohol use - History of Immunizations: other Reviewed Nursing Documentation: PMH: Agreed; PSxH: Agreed Nursing Documentation-PMH Hx Cardiac Problems: No Hx Cancer: No Hx Gastrointestinal Problems: Yes Hx Neurological Problems: No Review of Systems Eye: Denies: eye pain, blurred vision ENT: Denies: ear pain, nose congestion, throat swelling Respiratory: Denies: cough, shortness of breath Cardiovascular: Denies: chest pain, palpitations Gastrointestinal: Reports: abdominal pain; Denies: diarrhea, nausea, vomiting Musculoskeletal: Denies: back pain, joint pain Skin: Denies: rash Neurological: Denies: headache, numbness Endocrine: Denies: increased thirst, increased urine Hematologic/Lymphatic: Denies: easy bruising All Other Systems: negative except mentioned in HPI PE Vitals: reviewed Sp02 EP Interpretation: reviewed, normal General Appearance: no apparent distress, alert, cachetic Head: normocephalic, atraumatic Eyes: bilateral eye PERRL, bilateral eye EOMI, bilateral eye scleral icterus ENT: hearing grossly normal, normal pharynx Neck: full range of motion, supple, no meningismus Respiratory: chest non-tender, lungs clear, normal breath sounds Cardiovascular #1: regular rate, rhythm, no murmur Gastrointestinal: normal bowel sounds, no mass, no organomegaly, no bruit, non- distended, tenderness - Left lower quadrant, other - Ascites, but not tense Musculoskeletal: back normal, normal range of motion, gait/station normal Psychiatric: mood/affect normal Skin: jaundice CT/MRI/US Diagnostic Results : Imaging Test Ordered: CT abdomen and pelvis Impression Read by radiologist. Peripancreatic inflammatory changes. Slight interval decrease in size of fluid collection adjacent to the pancreatic tail. Cirrhosis with evidence of portal hypertension. Stable bilateral pleural effusion. Unchanged mild to moderate ascites. ASSESSMENT: 1. Acute pancreatitis. --> as per surg and gi --> npo for now --> continue on ivf 2. Pancytopenia - multiple etiologies and most likely relatd to cirrhosis --> Continue to monitor for improvement --> Hep panel and HIV have been ordered --> US abd ordered and shows portal htn and cirrhosis --> Medications have been reviewed --> Consider neupogen if Anc <500 --> dc etoh use 3. Pseudocyst of pancreas. 4. Jaundice. 5. Anemia. 6. Severe malnutrition. 7. Dvt ppx ambulation once mental status better [facility] Hospital declaration INPATIENT level of care is warranted for this patient because patient is a 89 year old with who presents with suspicion of . I have a high level of concern because . Patient is at high risk for . Plan of care/treatment include . Patient care is expected to be greater than 2 midnights. OBSERVATION level of care is warranted for this patient. Patient is a 89 year old with who presents with . Patient will be admitted for 1 midnight, but if additional night(s) is/are necessary, patient will be converted to inpatient status for the entire hospitalization Disposition: Once the patient is stable to leave the hospital, I anticipate the patient will likely be discharged to the following environment: Estimated discharge date: I spent 70 minutes on this patient's case, and minutes was dedicated to counseling and/or care coordination. MIPS (Merit-based Incentive Payment System) Applicable CPT: 96016, 91907 CHECK ALL THAT ARE MET: Measure #5 (CHF): All ages. Prescribe NESHA/ARB upon discharge for patients with left ventricular systolic dysfunction. If not, the reason is clearly documented in the medical chart. Measure #8 (CHF): All ages. Prescribe a beta james upon discharge for patients with left ventricular systolic dysfunction. If not, the reason is clearly documented in the medical chart. Measure #47 Advance care plan or surrogate decision maker documented in the medical record. Measure #130 The provider has documented, updated, or reviewed the patients current medication list and has documented it in the patients note. Measure #374 (All): Send report to referring provider. Measure #407(Sepsis due to MSSA bacteremia): Age 18+ Patient treated with a beta-lactam antibiotic (Nafcillin, Oxacillin or Cefazolin) as definitive therapy. MEDICAL COMPLEXITY High complexity medical decision making (need 2/3 categories) Problem - need 4 points Acute/new problem with new plan for workup (4 points, 1 max) Acute/new problem without additional workup (3 points, 1 max) Unstable chronic problem actively being managed (2 point each, 2 max) Stable chronic problem actively being managed (1 point each, 2 max) Self-limited/transient process (constipation, muscle ache, etc) (1 point each, 2 max) Data - need 4 points Reviewed labs/imaging studies (1 points, 2 max) Independent review of imaging (EKG, xrays, etc) (2 points, 2 max) Discussed case with consult/other MD/RN (2 points, 2 max) High Risk - qualify if have one of the following: Severe exacerbation of acute problem, acute mental status change, IV narcotics, monitoring drug levels (vancomycin, INR, tacrolimus etc) Carl Jessica MD Dec 31, 2020 09:17
[2020-12-31 10:54] LABS: ALANINE AMINOTRANSFERASE 22 U/L (12-78); ALBUMIN 2.1 G/DL (3.4-5.0); ALBUMIN/GLOBULIN RATIO 0.5 (1.0-2.7); ALKALINE PHOSPHATASE 96 U/L (46-116); ANION GAP 8 mmol/L (5-15); ASPARTATE AMINO TRANSFERASE 45 U/L (15-37); BILIRUBIN,DIRECT 3.1 MG/DL (0.0-0.3); BILIRUBIN,TOTAL 4.5 MG/DL (0.2-1.0); BLOOD UREA NITROGEN 12 mg/dL (7-18); CARBON DIOXIDE 23 MMOL/L (21-32); CHLORIDE 113 MMOL/L (98-107); CREATININE 0.6 MG/DL (0.55-1.30); POTASSIUM 3.7 MMOL/L (3.5-5.1); SODIUM 143 MMOL/L (136-145)
--- NOTE | 2020-12-31 11:53 | Consultation ---
History of Present Illness General Date patient seen: Dec 31, 2020 Reason for Hospitalization: Abdominal Pain Present Illness HPI This is a 30-year-old male with a history of alcoholic liver disease with ascites and previous pancreatitis. He was a heavy drinker. He relapsed several times in the past. He has been sober for 3 months now. He presents with chief complaint of left lower quadrant pain. Onset for last 2 days. Pain is 9 out of 10. Worse with movement. Better with rest. Worse with palpation also. No radiation of the pain. No fever. No nausea vomiting or diarrhea. This is not typical from his previous pain. Most of his of the pain has been in the upper quadrants. He said his liver enzymes last check was actually improving. surgery called to evaluate an assist with care. Allergies: Coded Allergies: No Known Allergies (Unverified , 12/15/20) COVID-19 Screening Contact w/high risk pt: No Experienced COVID-19 symptoms?: No Medication History Scheduled Folic Acid* (Folic Acid*), 1 MG ORAL DAILY, (Reported) Furosemide* (Lasix*), 40 MG ORAL DAILY, (Reported) Magnesium Oxide (Magnesium Oxide), 400 MG ORAL DAILY, (Reported) Multivitamins* (Multivitamins*), 1 TAB ORAL DAILY, (Reported) Spironolactone* (Aldactone*), 25 MG ORAL DAILY, (Reported) Patient History History Provided By: Patient, Medical Record, PMD Healthcare decision maker Resuscitation status Advanced Directive on File Past Medical/Surgical History Past Medical/Surgical History: (1) Pancreatitis (2) Alcoholic cirrhosis of liver with ascites Review of Systems Review of Symptoms General ROS: no weight loss or fever Psychological ROS: no depression or mood changes, no memory loss Ophthalmic ROS: no visual changes or eye irritation ENT ROS: no nasal congestion, hearing loss, dizziness Allergy and Immunology ROS: no allergic symptoms or urticaria Hematological and Lymphatic ROS: no swollen glands, unusual bleeding or bruising Endocrine ROS: no polyuria, polydipsia, weight changes, temperature intolerance Respiratory ROS: no cough, shortness of breath, or wheezing Cardiovascular ROS: no chest pain or dyspnea on exertion Gastrointestinal ROS: + abdominal pain, bright red blood in stool. Musculoskeletal ROS: no myalgias or arthralgias Neurological ROS: no TIA or stroke symptoms Dermatological ROS: no new or changing skin lesions, rashes or pruritis Physical Exam Physical Exam General appearance: alert, cooperative, no distress, appears stated age Head: Normocephalic, without obvious abnormality, atraumatic Eyes: conjunctivae/corneas clear. PERRL, EOM's intact. Fundi benign Throat: Lips, mucosa, and tongue normal. Teeth and gums normal Neck: supple, symmetrical, trachea midline, no adenopathy, thyroid: not enlarged, symmetric, no tenderness/mass/nodules, no carotid bruit and no JVD Lungs: clear to auscultation bilaterally Heart: regular rate and rhythm, S1, S2 normal, no murmur, click, rub or gallop Abdomen: soft, mild lower abd-tender. Bowel sounds normal. No masses, no organomegaly Extremities: extremities normal, atraumatic, no cyanosis or edema Pulses: 2+ and symmetric Skin: Skin color, texture, turgor normal. No rashes or lesions Neurologic: Grossly normal Last 24 Hour Vital Signs Date Time Temp Pulse Resp B/P (MAP) Pulse Ox O2 Delivery O2 Flow Rate FiO2 12/31/20 09:00 Room Air 12/31/20 08:47 97.7 12/31/20 08:00 97.2 63 20 114/76 (89) 98 12/31/20 04:02 97.7 12/31/20 03:57 97.7 72 16 120/63 (82) 96 12/31/20 00:13 98.0 77 18 117/75 (89) 96 12/31/20 00:12 Room Air 12/30/20 22:33 98.9 85 16 124/76 Room Air 12/30/20 22:04 85 Room Air 99 12/30/20 21:31 98.6 101 18 129/82 (98) 94 Room Air Intake and Output 12/30/20 12/31/20 19:00 07:00 Intake Total 501 ml Output Total 250 ml Balance 251 ml Intake Oral 1 ml IV Total 500 ml Output Urine Total 250 ml # Voids 2 Laboratory Tests Test 12/30/20 21:45 12/31/20 05:00 12/31/20 09:45 White Blood Count 5.6 K/UL (4.8-10.8) Red Blood Count 2.84 M/UL (4.70-6.10) L Hemoglobin 9.6 G/DL (14.2-18.0) L Hematocrit 29.9 % (42.0-52.0) L Mean Corpuscular Volume 105 FL (80-99) H Mean Corpuscular Hemoglobin 33.8 PG (27.0-31.0) H Mean Corpuscular Hemoglobin Concent 32.1 G/DL (32.0-36.0) Red Cell Distribution Width 12.5 % (11.6-14.8) Platelet Count 131 K/UL (150-450) L Mean Platelet Volume 6.8 FL (6.5-10.1) Neutrophils (%) (Auto) 66.4 % (45.0-75.0) Lymphocytes (%) (Auto) 20.7 % (20.0-45.0) Monocytes (%) (Auto) 7.8 % (1.0-10.0) Eosinophils (%) (Auto) 3.2 % (0.0-3.0) H Basophils (%) (Auto) 1.9 % (0.0-2.0) Sodium Level 140 MMOL/L (136-145) 143 MMOL/L (136-145) Potassium Level 4.2 MMOL/L (3.5-5.1) 3.7 MMOL/L (3.5-5.1) Chloride Level 110 MMOL/L (98-107) H 113 MMOL/L (98-107) H Carbon Dioxide Level 21 MMOL/L (21-32) 23 MMOL/L (21-32) Anion Gap 9 mmol/L (5-15) 8 mmol/L (5-15) Blood Urea Nitrogen 11 mg/dL (7-18) 12 mg/dL (7-18) Creatinine 0.7 MG/DL (0.55-1.30) 0.6 MG/DL (0.55-1.30) Estimat Glomerular Filtration Rate > 60 mL/min (>60) > 60 mL/min (>60) Glucose Level 112 MG/DL (74-106) H 83 MG/DL (74-106) Calcium Level 8.2 MG/DL (8.5-10.1) L 8.0 MG/DL (8.5-10.1) L Total Bilirubin 5.1 MG/DL (0.2-1.0) H 4.5 MG/DL (0.2-1.0) H Direct Bilirubin 3.3 MG/DL (0.0-0.3) H 3.1 MG/DL (0.0-0.3) H Aspartate Amino Transf (AST/SGOT) 63 U/L (15-37) H 45 U/L (15-37) H Alanine Aminotransferase (ALT/SGPT) 26 U/L (12-78) 22 U/L (12-78) Alkaline Phosphatase 138 U/L (46-116) H 96 U/L (46-116) Total Protein 7.9 G/DL (6.4-8.2) 6.7 G/DL (6.4-8.2) Albumin 2.5 G/DL (3.4-5.0) L 2.1 G/DL (3.4-5.0) L Globulin 5.4 g/dL 4.6 g/dL Albumin/Globulin Ratio 0.5 (1.0-2.7) L 0.5 (1.0-2.7) L Lipase > 2000 U/L (73-393) H Urine Color Brown Urine Appearance Slightly cloudy Urine pH 7 (4.5-8.0) Urine Specific [place] 1.010 (1.005-1.035) Urine Protein Negative (NEGATIVE) Urine Glucose (UA) Negative (NEGATIVE) Urine Ketones Negative (NEGATIVE) Urine Blood Negative (NEGATIVE) Urine Nitrite Negative (NEGATIVE) Urine Bilirubin 1+ (NEGATIVE) H Urine Ictotest Positive (NEGATIVE) Urine Urobilinogen 1 MG/DL (0.0-1.0) H Urine Leukocyte Esterase 1+ (NEGATIVE) H Urine RBC 0-2 /HPF (0 - 0) H Urine WBC 0-2 /HPF (0 - 0) Urine Squamous Epithelial Cells Occasional /LPF Urine Amorphous Sediment Few /LPF (NONE) H Urine Bacteria Occasional /HPF (NONE) Urine Mucus Moderate /LPF (NONE/OCC) H Height (Feet): 6 Height (Inches): 0.00 Weight (Pounds): 170 Medications Current Medications Medications (Trade) Dose Ordered Sig/Viji Route PRN Reason Start Time Stop Time Status Last Admin Dose Admin Morphine Sulfate (Morphine Sulfate) 2 mg Q4H PRN IVP For Pain 12/31/20 00:45 01/07/21 00:44 12/31/20 08:17 Ondansetron HCl (Zofran) 4 mg Q4H PRN IVP Nausea & Vomiting 12/31/20 00:45 01/30/21 00:44 Pantoprazole (Protonix) 40 mg DAILY IVP 12/31/20 09:00 01/30/21 08:59 12/31/20 08:16 Sodium Chloride 1,000 ml @ 100 mls/hr Q10H IV 12/31/20 00:45 01/30/21 00:44 12/31/20 10:45 Assessment/Plan Problem List: (1) Pancreatitis Assessment & Plan: 30-year-old male well-known to ma liver insufficiency history of pancreatitis heavy drinker continues to drink now lower abdominal pain noted to have pancreatitis again lipase greater than [address] reviewed. No acute surgical intervention. N.p.o. IV fluids trend labs. Alcohol cessation. Patient is noncompliant with care plan I have had a long discussion with him during prior admission about alcohol cessation but he continues to drink. He understands his liver insufficiency and the consequences but continues to drink. Liver: Mild nodularity of the liver surface consistent with cirrhosis. There is evidence of portal hypertension including a recanalized paraumbilical vein and splenomegaly. Gallbladder and bile ducts: Gallbladder wall thickening however this is nonspecific, especially in the setting of chronic liver disease. No calcified gallstones identified. Pancreas: Again identified are mabel-pancreatic inflammatory changes. Slight interval increase in size of an organized fluid collection adjacent to the pancreatic tail previously measuring 65 mm and currently measuring up to 68 mm. No other organized fluid collection identified. Spleen: Again noted is splenomegaly. Adrenals: Unremarkable. No mass. Kidneys and ureters: Unremarkable. No obstructing stones. No hydronephrosis. Stomach and bowel: Unremarkable. No obstruction. No mucosal thickening. PELVIS: Appendix: Normal appendix (4: 120). Bladder: The wall appears mildly thickened however this is likely related to the lack of distention. Reproductive: Unremarkable as visualized. ABDOMEN and PELVIS: Intraperitoneal space: No free air. Unchanged mild to moderate volume ascites. Bones/joints: Unremarkable. Soft tissues: Mild anasarca. Vasculature: No abdominal aortic aneurysm. Lymph nodes: No enlarged lymph nodes. IMPRESSION: 1. Peripancreatic inflammatory changes are again noted. Correlate with amylase and lipase for recurrent pancreatitis. 2. Slight interval decrease in size of an organized fluid collection adjacent to the pancreatic tail. No new organized fluid collection identified. 3. No other new acute process identified within the abdomen or pelvis. 4. Cirrhosis with evidence of portal hypertension, as above. 5. Stable large bilateral pleural effusions with lower lobe compressive atelectasis. 6. Unchanged mild to moderate volume ascites. ICD Codes: K85.90 - Acute pancreatitis without necrosis or infection, unspecified SNOMED: [id number] Qualifiers: Qualified Codes: K85.20 - Alcohol induced acute pancreatitis without necrosis or infection (2) Alcoholic cirrhosis of liver with ascites ICD Codes: K70.31 - Alcoholic cirrhosis of liver with ascites SNOMED: [id number], [id number] Didier Mittal Dec 31, 2020 11:53
[2020-12-31 12:00] VITALS: BP 115/76
[2020-12-31 16:00] VITALS: BP 121/88
--- NOTE | 2020-12-31 18:38 | NUR ---
NURSE HAND-OFF: Important Events on Shift:[none] Patient Status: stable Diet: NPO Pending Orders: Pending Results/Labs: Pending MD notification: Latest Vital Signs: Temperature 98.6 , Pulse 67 , B/P 121 /88 , Respiratory Rate 20 , O2 SAT 99 , Room Air, O2 Flow Rate . Vital Sign Comment: stable Latest Fragoso Fall Score: 15 Fall Risk: Low Risk Safety Measures: Call light Within Reach, Bed Alarm Zone 1, Side Rails Side Rails x1, Bed position Low and Locked. Fall Precautions: Patient Fall Education Report given to Sandrita LIN.
--- NOTE | 2020-12-31 19:44 | NUR ---
NURSE NOTES: Received patient awake, alert, verbal, ambulatory, resting in bed, watching television.
[2020-12-31 20:01] VITALS: BP 121/78
[2021-01-01] MEDS: Morphine Sulfate 2mg/ml Inj(IV/IM USE ONLY) IVP PRN ×6 (00:59→22:16)
[2021-01-01 04:06] VITALS: BP 118/74
--- NOTE | 2021-01-01 06:33 | Hematology/Onc Progress Note ---
Assessment/Plan Assessment/Plan CT/MRI/US Diagnostic Results : Imaging Test Ordered: CT abdomen and pelvis Impression Read by radiologist. Peripancreatic inflammatory changes. Slight interval decrease in size of fluid collection adjacent to the pancreatic tail. Cirrhosis with evidence of portal hypertension. Stable bilateral pleural effusion. Unchanged mild to moderate ascites. ASSESSMENT: 1. Acute pancreatitis. --> as per surg and gi --> npo for now --> continue on ivf 2. Pancytopenia - multiple etiologies and most likely relatd to cirrhosis --> Continue to monitor for improvement --> Hep panel and HIV have been ordered --> US abd ordered and shows portal htn and cirrhosis --> Medications have been reviewed --> Consider neupogen if Anc <500 --> dc etoh use 3. Pseudocyst of pancreas. 4. Jaundice. 5. Hypalbuminemia 6. Severe malnutrition. 7. Dvt ppx ambulation once mental status better Subjective Constitutional: Denies: no symptoms, chills, fever, malaise, weakness, other HEENT: Denies: no symptoms, eye pain, blurred vision, tearing, double vision, ear pain, ear discharge, nose pain, nose congestion, throat pain, throat swelling, mouth pain, mouth swelling, other Cardiovascular: Denies: no symptoms, chest pain, edema, irregular heart rate, lightheadedness, palpitations, syncope, other Gastrointestinal/Abdominal: Denies: no symptoms, abdomen distended, abdominal pain, black stools, tarry stools, blood in stool, constipated, diarrhea, difficulty swallowing, nausea, poor appetite, poor fluid intake, rectal bleeding, vomiting, other Neurologic/Psychiatric: Denies: no symptoms, anxiety, depressed, emotional problems, headache, numbness, paresthesia, pre-existing deficit, seizure, tingling, tremors, weakness, other Endocrine: Denies: no symptoms, excessive sweating, flushing, intolerance to cold, intolerance to heat, increased hunger, increased thirst, increased urine, unexplained weight gain, unexplained weight loss, other Allergies: Coded Allergies: No Known Allergies (Unverified , 12/15/20) Subjective 2 alert, awake, no major changes, labs ordered for am, mild abd pain Objective Objective Current Medications Medications (Trade) Dose Ordered Sig/Viji Route PRN Reason Start Time Stop Time Status Last Admin Dose Admin Morphine Sulfate (Morphine Sulfate) 2 mg Q4H PRN IVP For Pain 12/31/20 00:45 01/07/21 00:44 01/01/21 05:00 Ondansetron HCl (Zofran) 4 mg Q4H PRN IVP Nausea & Vomiting 12/31/20 00:45 01/30/21 00:44 Pantoprazole (Protonix) 40 mg DAILY IVP 12/31/20 09:00 01/30/21 08:59 12/31/20 08:16 Sodium Chloride 1,000 ml @ 100 mls/hr Q10H IV 12/31/20 00:45 01/30/21 00:44 12/31/20 22:02 Last 24 Hour Vital Signs Date Time Temp Pulse Resp B/P (MAP) Pulse Ox O2 Delivery O2 Flow Rate FiO2 01/01/21 05:33 98.0 01/01/21 04:06 98.0 16 118/74 (89) 96 01/01/21 01:30 97.7 12/31/20 21:39 97.7 12/31/20 20:21 Room Air 12/31/20 20:01 97.7 68 18 121/78 (92) 99 12/31/20 17:38 98.6 12/31/20 16:00 98.6 67 20 121/88 (99) 99 12/31/20 13:41 97.7 12/31/20 12:00 97.9 62 16 115/76 (89) 98 12/31/20 09:00 Room Air 12/31/20 08:47 97.7 12/31/20 08:00 97.2 63 20 114/76 (89) 98 12/31/20 04:02 97.7 12/31/20 03:57 97.7 72 16 120/63 (82) 96 12/31/20 00:13 98.0 77 18 117/75 (89) 96 12/31/20 00:12 Room Air 12/30/20 22:33 98.9 85 16 124/76 Room Air 12/30/20 22:04 85 Room Air 99 12/30/20 21:31 98.6 101 18 129/82 (98) 94 Room Air Intake and Output 12/31/20 01/01/21 19:00 07:00 Intake Total 580 ml 1000 ml Output Total 600 ml Balance -20 ml 1000 ml Intake Oral 480 ml IV Total 100 ml 1000 ml Output Urine Total 600 ml # Voids 1 Labs Test 12/30/20 21:45 12/31/20 05:00 12/31/20 09:45 White Blood Count 5.6 K/UL (4.8-10.8) Red Blood Count 2.84 M/UL (4.70-6.10) Hemoglobin 9.6 G/DL (14.2-18.0) Hematocrit 29.9 % (42.0-52.0) Mean Corpuscular Volume 105 FL (80-99) Mean Corpuscular Hemoglobin 33.8 PG (27.0-31.0) Mean Corpuscular Hemoglobin Concent 32.1 G/DL (32.0-36.0) Red Cell Distribution Width 12.5 % (11.6-14.8) Platelet Count 131 K/UL (150-450) Mean Platelet Volume 6.8 FL (6.5-10.1) Neutrophils (%) (Auto) 66.4 % (45.0-75.0) Lymphocytes (%) (Auto) 20.7 % (20.0-45.0) Monocytes (%) (Auto) 7.8 % (1.0-10.0) Eosinophils (%) (Auto) 3.2 % (0.0-3.0) Basophils (%) (Auto) 1.9 % (0.0-2.0) Sodium Level 140 MMOL/L (136-145) 143 MMOL/L (136-145) Potassium Level 4.2 MMOL/L (3.5-5.1) 3.7 MMOL/L (3.5-5.1) Chloride Level 110 MMOL/L (98-107) 113 MMOL/L (98-107) Carbon Dioxide Level 21 MMOL/L (21-32) 23 MMOL/L (21-32) Anion Gap 9 mmol/L (5-15) 8 mmol/L (5-15) Blood Urea Nitrogen 11 mg/dL (7-18) 12 mg/dL (7-18) Creatinine 0.7 MG/DL (0.55-1.30) 0.6 MG/DL (0.55-1.30) Estimat Glomerular Filtration Rate > 60 mL/min (>60) > 60 mL/min (>60) Glucose Level 112 MG/DL (74-106) 83 MG/DL (74-106) Calcium Level 8.2 MG/DL (8.5-10.1) 8.0 MG/DL (8.5-10.1) Total Bilirubin 5.1 MG/DL (0.2-1.0) 4.5 MG/DL (0.2-1.0) Direct Bilirubin 3.3 MG/DL (0.0-0.3) 3.1 MG/DL (0.0-0.3) Aspartate Amino Transf (AST/SGOT) 63 U/L (15-37) 45 U/L (15-37) Alanine Aminotransferase (ALT/SGPT) 26 U/L (12-78) 22 U/L (12-78) Alkaline Phosphatase 138 U/L (46-116) 96 U/L (46-116) Total Protein 7.9 G/DL (6.4-8.2) 6.7 G/DL (6.4-8.2) Albumin 2.5 G/DL (3.4-5.0) 2.1 G/DL (3.4-5.0) Globulin 5.4 g/dL 4.6 g/dL Albumin/Globulin Ratio 0.5 (1.0-2.7) 0.5 (1.0-2.7) Lipase > 2000 U/L (73-393) Urine Color Brown Urine Appearance Slightly cloudy Urine pH 7 (4.5-8.0) Urine Specific [place] 1.010 (1.005-1.035) Urine Protein Negative (NEGATIVE) Urine Glucose (UA) Negative (NEGATIVE) Urine Ketones Negative (NEGATIVE) Urine Blood Negative (NEGATIVE) Urine Nitrite Negative (NEGATIVE) Urine Bilirubin 1+ (NEGATIVE) Urine Ictotest Positive (NEGATIVE) Urine Urobilinogen 1 MG/DL (0.0-1.0) Urine Leukocyte Esterase 1+ (NEGATIVE) Urine RBC 0-2 /HPF (0 - 0) Urine WBC 0-2 /HPF (0 - 0) Urine Squamous Epithelial Cells Occasional /LPF Urine Amorphous Sediment Few /LPF (NONE) Urine Bacteria Occasional /HPF (NONE) Urine Mucus Moderate /LPF (NONE/OCC) Height (Feet): 6 Height (Inches): 0.00 Weight (Pounds): 170 Objective PE Vitals: reviewed Sp02 EP Interpretation: reviewed, normal General Appearance: no apparent distress, alert, cachetic Head: normocephalic, atraumatic Eyes: bilateral eye PERRL, bilateral eye EOMI, bilateral eye scleral icterus ENT: hearing grossly normal, normal pharynx Neck: full range of motion, supple, no meningismus Respiratory: chest non-tender, lungs clear, normal breath sounds Cardiovascular #1: regular rate, rhythm, no murmur Gastrointestinal: normal bowel sounds, no mass, no organomegaly, no bruit, non- distended, tenderness - Left lower quadrant, other - Ascites, but not tense Musculoskeletal: back normal, normal range of motion, gait/station normal Psychiatric: mood/affect normal Skin: jaundice Carl Jessica MD Jan 01, 2021 06:33
--- NOTE | 2021-01-01 07:30 | NUR ---
NURSE HAND-OFF: Important Events on Shift:[]Pain medication Patient Status: [] Diet: []NPO Pending Orders: [] Pending Results/Labs:[] Pending MD notification:[] Latest Vital Signs: Temperature 98.0 , Pulse 68 , B/P 118 /74 , Respiratory Rate 16 , O2 SAT 96 , Room Air, O2 Flow Rate . Vital Sign Comment: [] Latest Fragoso Fall Score: 15 Fall Risk: Low Risk Safety Measures: Call light Within Reach, Bed Alarm Zone 1, Side Rails Side Rails x1, Bed position Low and Locked. Fall Precautions: Patient Fall Education Report given to [].
[2021-01-01 08:00] VITALS: BP 116/70
[2021-01-01 09:09] LABS: HEMATOCRIT 28.2 % (42.0-52.0); HEMOGLOBIN 9.3 G/DL (14.2-18.0); MEAN CORPUSCULAR VOLUME 103 FL (80-99); PLATELET COUNT 99 K/UL (150-450); RED BLOOD COUNT 2.73 M/UL (4.70-6.10); WHITE BLOOD COUNT 3.1 K/UL (4.8-10.8)
[2021-01-01] MEDS: Pantoprazole Inj IVP SCH (09:15)
[2021-01-01 09:52] LABS: ALANINE AMINOTRANSFERASE 18 U/L (12-78); ALBUMIN 2.2 G/DL (3.4-5.0); ALBUMIN/GLOBULIN RATIO 0.5 (1.0-2.7); ALKALINE PHOSPHATASE 81 U/L (46-116); AMYLASE 439 U/L (25-115); ANION GAP 7 mmol/L (5-15); ASPARTATE AMINO TRANSFERASE 46 U/L (15-37); BILIRUBIN,TOTAL 5.5 MG/DL (0.2-1.0); BLOOD UREA NITROGEN 8 mg/dL (7-18); CALCIUM 8.5 MG/DL (8.5-10.1); CARBON DIOXIDE 22 MMOL/L (21-32); CHLORIDE 109 MMOL/L (98-107); CREATININE 0.6 MG/DL (0.55-1.30); POTASSIUM 4.1 MMOL/L (3.5-5.1); SODIUM 138 MMOL/L (136-145)
[2021-01-01 09:57] LABS: BILIRUBIN,DIRECT 3.5 MG/DL (0.0-0.3)
[2021-01-01 12:00] VITALS: BP 121/65
--- NOTE | 2021-01-01 13:07 | Surgery Progress Note ---
Surgery Progress Note Subjective Symptoms: improved, tolerating diet, voiding well, passing flatus, BM, pain decreased Additional Comments lip trending down no n/v tolerating diet Objective Last 24 Hour Vital Signs Date Time Temp Pulse Resp B/P (MAP) Pulse Ox O2 Delivery O2 Flow Rate FiO2 01/01/21 10:06 97.8 01/01/21 09:00 Room Air 01/01/21 08:00 97.8 64 19 116/70 (85) 96 01/01/21 05:33 98.0 01/01/21 04:06 98.0 16 118/74 (89) 96 01/01/21 01:30 97.7 12/31/20 21:39 97.7 12/31/20 20:21 Room Air 12/31/20 20:01 97.7 68 18 121/78 (92) 99 12/31/20 17:38 98.6 12/31/20 16:00 98.6 67 20 121/88 (99) 99 12/31/20 13:41 97.7 I&O Intake and Output 12/31/20 01/01/21 19:00 07:00 Intake Total 580 ml 1200 ml Output Total 600 ml Balance -20 ml 1200 ml Intake Oral 480 ml 0 ml IV Total 100 ml 1200 ml Output Urine Total 600 ml # Voids 1 4 Cardiovascular: RSR Respiratory: clear Abdomen: soft, flat, non-tender, present bowel sounds, non-distended Extremities: no edema, no tenderness, no cyanosis Laboratory Tests Test 01/01/21 08:28 White Blood Count 3.1 K/UL (4.8-10.8) L Red Blood Count 2.73 M/UL (4.70-6.10) L Hemoglobin 9.3 G/DL (14.2-18.0) L Hematocrit 28.2 % (42.0-52.0) L Mean Corpuscular Volume 103 FL (80-99) H Mean Corpuscular Hemoglobin 34.2 PG (27.0-31.0) H Mean Corpuscular Hemoglobin Concent 33.1 G/DL (32.0-36.0) Red Cell Distribution Width 13.0 % (11.6-14.8) Platelet Count 99 K/UL (150-450) L Mean Platelet Volume 5.9 FL (6.5-10.1) L Neutrophils (%) (Auto) % (45.0-75.0) Lymphocytes (%) (Auto) % (20.0-45.0) Monocytes (%) (Auto) % (1.0-10.0) Eosinophils (%) (Auto) % (0.0-3.0) Basophils (%) (Auto) % (0.0-2.0) Differential Total Cells Counted 100 Neutrophils % (Manual) 71 % (45-75) Lymphocytes % (Manual) 24 % (20-45) Monocytes % (Manual) 3 % (1-10) Eosinophils % (Manual) 2 % (0-3) Basophils % (Manual) 0 % (0-2) Band Neutrophils 0 % (0-8) Platelet Estimate Decreased L Platelet Morphology Normal Macrocytosis 1+ Sodium Level 138 MMOL/L (136-145) Potassium Level 4.1 MMOL/L (3.5-5.1) Chloride Level 109 MMOL/L (98-107) H Carbon Dioxide Level 22 MMOL/L (21-32) Anion Gap 7 mmol/L (5-15) Blood Urea Nitrogen 8 mg/dL (7-18) Creatinine 0.6 MG/DL (0.55-1.30) Estimat Glomerular Filtration Rate > 60 mL/min (>60) Glucose Level 66 MG/DL (74-106) L Calcium Level 8.5 MG/DL (8.5-10.1) Total Bilirubin 5.5 MG/DL (0.2-1.0) H Direct Bilirubin 3.5 MG/DL (0.0-0.3) H Aspartate Amino Transf (AST/SGOT) 46 U/L (15-37) H Alanine Aminotransferase (ALT/SGPT) 18 U/L (12-78) Alkaline Phosphatase 81 U/L (46-116) Total Protein 6.8 G/DL (6.4-8.2) Albumin 2.2 G/DL (3.4-5.0) L Globulin 4.6 g/dL Albumin/Globulin Ratio 0.5 (1.0-2.7) L Amylase Level 439 U/L (25-115) H Lipase 1798 U/L (73-393) H Plan Problems: (1) Pancreatitis Assessment & Plan: 30-year-old male well-known to me liver insufficiency history of pancreatitis heavy drinker continues to drink now lower abdominal pain noted to have pancreatitis again lipase greater than [address] reviewed. No acute surgical intervention. N.p.o. IV fluids trend labs. Alcohol cessation. Patient is noncompliant with care plan I have had a long d iscussion with him during prior admission about alcohol cessation but he continues to drink. He understands his liver insufficiency and the consequences but continues to drink. Liver: Mild nodularity of the liver surface consistent with cirrhosis. There is evidence of portal hypertension including a recanalized paraumbilical vein and splenomegaly. Gallbladder and bile ducts: Gallbladder wall thickening however this is nonspecific, especially in the setting of chronic liver disease. No calcified gallstones identified. Pancreas: Again identified are mabel-pancreatic inflammatory changes. Slight interval increase in size of an organized fluid collection adjacent to the pancreatic tail previously measuring 65 mm and currently measuring up to 68 mm. No other organized fluid collection identified. Spleen: Again noted is splenomegaly. Adrenals: Unremarkable. No mass. Kidneys and ureters: Unremarkable. No obstructing stones. No hydronephrosis. Stomach and bowel: Unremarkable. No obstruction. No mucosal thickening. PELVIS: Appendix: Normal appendix (4: 120). Bladder: The wall appears mildly thickened however this is likely related to the lack of distention. Reproductive: Unremarkable as visualized. ABDOMEN and PELVIS: Intraperitoneal space: No free air. Unchanged mild to moderate volume ascites. Bones/joints: Unremarkable. Soft tissues: Mild anasarca. Vasculature: No abdominal aortic aneurysm. Lymph nodes: No enlarged lymph nodes. IMPRESSION: 1. Peripancreatic inflammatory changes are again noted. Correlate with amylase and lipase for recurrent pancreatitis. 2. Slight interval decrease in size of an organized fluid collection adjacent to the pancreatic tail. No new organized fluid collection identified. 3. No other new acute process identified within the abdomen or pelvis. 4. Cirrhosis with evidence of portal hypertension, as above. 5. Stable large bilateral pleural effusions with lower lobe compressive atelectasis. 6. Unchanged mild to moderate volume ascites. (2) Alcoholic cirrhosis of liver with ascites Didier Mittal Jan 01, 2021 13:07
[2021-01-01] MEDS ORDERED: PANTOPRAZOLE SO40 MG ORAL (13:13)
[2021-01-01] MEDS ORDERED: ZENPEP DR 5,001 EAC1 PO (13:13)
--- NOTE | 2021-01-01 13:38 | NUR ---
CASE MANAGEMENT:REVIEW 30 YR OLD MALE WALKED INTO ER CC: SHARP ABDOMINAL PAIN X2 DAYS THAT IS WORSENING SI: PANCREATITIS. ALCOHOLIC CIRRHOSIS W/ASCITES 98.6 101 18 129/82 94% ON RA H/H-9.6/29.9 PLT-131 LIPASE >2000 IS: 500CC NS BOLUS IV ZOFRAN IV MORPHINE CT ABD/PELVIS NPO : TO MED/SURG DCP: RETURN TO PRIOR LIVING ARRANGEMENTS
[2021-01-01 16:00] VITALS: BP 129/71
--- NOTE | 2021-01-01 18:59 | History and Physical Report ---
DATE OF ADMISSION: 12/30/2020 HISTORY OF PRESENT ILLNESS: This is a 30-year-old male, who came to the emergency room for abdominal pain, acute pancreatitis, and alcoholic cirrhosis. The patient claims he ate some spicy food. PAST MEDICAL HISTORY: Significant for acute pancreatitis and alcohol abuse. MEDICATIONS: He is taking , Zofran, Protonix. ALLERGIES: NKA. FAMILY HISTORY: Noncontributory. SOCIAL HISTORY: He lives at home. He quit drinking. REVIEW OF SYSTEMS: Generalized weakness and abdominal pain, asking for pain medicine every four hours. PHYSICAL EXAMINATION: VITAL SIGNS: Blood pressure 129/71, pulse 74, respirations 17, temperature 97.6. HEENT: NAD. CHEST: Bilaterally clear. CARDIOVASCULAR: Regular rhythm. ABDOMEN: Soft. Mild diffuse tenderness in epigastric region GENITOURINARY: Deferred. LABORATORY DATA: White count 3.1, hemoglobin 9.3, hematocrit 28, platelets 103,000. Chemistry panel, lipase 7098. Bilirubin is 5.5. Potassium is normal. Urine is positive for Ictotest and 1+ bilirubin. IMAGING: CT of abdomen showing pseudocyst and mild inflammatory changes in pancreas. ASSESSMENT: 1. Acute pancreatitis. 2. History of alcohol abuse. PLAN: We will admit on the medical floor. Continue IV fluid and clear liquid diet. Continue Zofran. GI is on consult. Huan Lott M.D. DR: DAVID JOB#: [id number] CC:
--- NOTE | 2021-01-01 19:15 | NUR ---
NURSE HAND-OFF: Important Events on Shift:no Patient Status: full code/ stable condition Diet: full liquid diet - patient is able to tolerate diet with no n/v. Pending Orders: Pending Results/Labs:am labs: lipase, CBC, BMP Pending MD notification:[] Latest Vital Signs: Temperature 97.6 , Pulse 74 , B/P 129 /71 , Respiratory Rate 17 , O2 SAT 97 , Room Air, O2 Flow Rate . Vital Sign Comment: stable Latest Fragoso Fall Score: 15 Fall Risk: Low Risk Safety Measures: Call light Within Reach, Bed Alarm Zone 1, Side Rails Side Rails x1, Bed position Low and Locked. Fall Precautions: Patient Fall Education Report given to Oscar LIN, patient in stable condition. - pt is able to ambulate with steady gait.
--- NOTE | 2021-01-01 19:31 | NUR ---
NURSE NOTES: Received report from Karolyn LIN. Patient is awake, alert, and oriented x4. On room air, breathing is even and unlabored. Complains of abdominal pain noted. Will administer pain meds. IV right AC intact and patent with no bleeding noted. IVF running as ordered. Bed low and locked. Call light within reach.
[2021-01-01 20:00] VITALS: BP 120/80
--- NOTE | 2021-01-01 21:37 | General Progress Note ---
Subjective Allergies: Coded Allergies: No Known Allergies (Unverified , 12/15/20) Objective Last 24 Hour Vital Signs Date Time Temp Pulse Resp B/P (MAP) Pulse Ox O2 Delivery O2 Flow Rate FiO2 01/01/21 20:00 97.1 75 18 120/80 (93) 97 01/01/21 18:42 97.6 01/01/21 16:00 97.6 74 17 129/71 (90) 97 01/01/21 14:14 98.2 01/01/21 12:00 98.2 73 18 121/65 (83) 96 01/01/21 10:06 97.8 01/01/21 09:00 Room Air 01/01/21 08:00 97.8 64 19 116/70 (85) 96 01/01/21 05:33 98.0 01/01/21 04:06 98.0 16 118/74 (89) 96 01/01/21 01:30 97.7 12/31/20 21:39 97.7 Intake and Output 12/31/20 01/01/21 19:00 07:00 Intake Total 580 ml 1200 ml Output Total 600 ml Balance -20 ml 1200 ml Intake Oral 480 ml 0 ml IV Total 100 ml 1200 ml Output Urine Total 600 ml # Voids 1 4 Laboratory Tests 01/01/21 08:28: White Blood Count 3.1L, Red Blood Count 2.73L, Hemoglobin 9.3L, Hematocrit 28.2L , Mean Corpuscular Volume 103H, Mean Corpuscular Hemoglobin 34.2H, Mean Corpuscular Hemoglobin Concent 33.1, Red Cell Distribution Width 13.0, Platelet Count 99L, Mean Platelet Volume 5.9L, Neutrophils (%) (Auto) , Lymphocytes (%) (Auto) , Monocytes (%) (Auto) , Eosinophils (%) (Auto) , Basophils (%) (Auto) , Differential Total Cells Counted 100, Neutrophils % (Manual) 71, Lymphocytes % (Manual) 24, Monocytes % (Manual) 3, Eosinophils % (Manual) 2, Basophils % (Manual) 0, Band Neutrophils 0, Platelet Estimate DecreasedL, Platelet Morphology Normal, Macrocytosis 1+, Sodium Level 138, Potassium Level 4.1, Chloride Level 109H, Carbon Dioxide Level 22, Anion Gap 7, Blood Urea Nitrogen 8, Creatinine 0.6, Estimat Glomerular Filtration Rate > 60, Glucose Level 66L, Calcium Level 8.5, Total Bilirubin 5.5H, Direct Bilirubin 3.5H, Aspartate Amino Transf (AST/SGOT) 46H, Alanine Aminotransferase (ALT/SGPT) 18, Alkaline Phosp hatase 81, Total Protein 6.8, Albumin 2.2L, Globulin 4.6, Albumin/Globulin Ratio 0.5L, Amylase Level 439H, Lipase 1798H Height (Feet): 6 Height (Inches): 0.00 Weight (Pounds): 170 Assessment/Plan Assessment/Plan: Assessment - EtOH cirrhosis - EtOH hepatitis - Recurrent pancreatitis - pancreatic pseudocyst - portal HTN - pleural effusions Recommendations - clear liquids - follow labs and exam - trental trial - outpatient referral to liver transplant center Thank you MD Agustina See Payman MD Jan 01, 2021 21:37
[2021-01-02] VITALS: BP 107/75
--- NOTE | 2021-01-02 00:29 | Consultation ---
DATE OF CONSULTATION: 01/01/2021 GASTROENTEROLOGY CONSULTATION CONSULTING PHYSICIAN: Ankit Berrios M.D. CHIEF COMPLAINT: I was asked to see this patient by Dr. Charlie Lott for evaluation of liver and pancreas issues. HISTORY OF PRESENT ILLNESS: The patient is a 30-year-old man who has had a second admission here in the past 2 weeks for recurrent pancreatitis. The patient has been a heavy alcohol user for at least 7 years. He stated that he would drink 1 to 2 bottles of vodka a day and at least would be one bottle approximately a day as far as this time period. However, he stopped drinking about 3 months ago and he states he has not had a single drink in that time. He was previously in [place] for his healthcare and now is here. He has had recurrent episodes of pancreatitis and also cirrhosis with ascites. He has had 3 paracenteses in the past. He has been on Lasix and Aldactone as an outpatient. He has nausea, but no vomiting. He came in here for 3 days of recurrent epigastric pain. He was recently admitted with the same issue, with rule out abscess and pancreatitis with pancreatic pseudocyst. He was managed conservatively. PAST MEDICAL HISTORY: Remote history of pancreatitis and alcohol abuse. FAMILY HISTORY: Positive for gastric cancer. SOCIAL HISTORY: The patient does not smoke, but he does use marijuana intermittently and he drinks heavily in the past as described. REVIEW OF SYSTEMS: Otherwise, negative. ALLERGIES: None. PHYSICAL EXAMINATION: GENERAL: A well-developed man seen in his room. HEENT: Normocephalic and atraumatic. Sclerae mildly icteric. NECK: Supple. CHEST: Clear to auscultation. CARDIOVASCULAR: Regular rate. ABDOMEN: Soft. There is no epigastric tenderness to palpation. EXTREMITIES: Revealed trace edema. LABORATORY DATA: Noted. ASSESSMENT: This patient presents with a significant degree of long-term alcohol disease complications including pancreatitis with pseudocyst formation as well as hepatitis and cirrhosis with ascites and portal hypertension. All these had features with the patient observed no bleeding and the patient is not being exposed to alcohol for 3 months and is very concerning. He should be seen by the transplant center as an outpatient for close followup and evaluation as he is showing no evidence of liver failure despite being off of alcohol for 3 months and I will place him on Trental trial. I would hold off on steroids given the peripancreatic fluid collection. His pancreatitis can be managed conservatively. I will start him on a clear liquid diet and advance totally as tolerated. Lasix and Aldactone should be restarted to help with fluid management. RECOMMENDATIONS: Per above discussion and per orders in the chart. Thank you for asking me to participate in the care of this patient. Ankit Berrios M.D. DR: MOY JOB#: [id number] CC: [email or web address]
[2021-01-02] MEDS: Morphine Sulfate 2mg/ml Inj(IV/IM USE ONLY) IVP PRN ×4 (03:01→20:59)
[2021-01-02 04:00] VITALS: BP 107/67
--- NOTE | 2021-01-02 06:38 | Hematology/Onc Progress Note ---
Assessment/Plan Assessment/Plan # Pancytopenia - multiple etiologies and most likely relatd to cirrhosis --> Continue to monitor for improvement --> Hep panel and HIV have been ordered --> US abd ordered and shows portal htn and cirrhosis --> Medications have been reviewed --> Consider neupogen if Anc <500 --> dc etoh use # Acute pancreatitis. --> as per surg and gi --> npo for now --> continue on ivf3. Pseudocyst of pancreas. # Jaundice. # Hypalbuminemia # Severe malnutrition. # Dvt ppx ambulation once mental status better Subjective Constitutional: Denies: no symptoms, chills, fever, malaise, weakness, other HEENT: Denies: no symptoms, eye pain, blurred vision, tearing, double vision, ear pain, ear discharge, nose pain, nose congestion, throat pain, throat swelling, mouth pain, mouth swelling, other Cardiovascular: Denies: no symptoms, chest pain, edema, irregular heart rate, lightheadedness, palpitations, syncope, other Gastrointestinal/Abdominal: Denies: no symptoms, abdomen distended, abdominal pain, black stools, tarry stools, blood in stool, constipated, diarrhea, difficulty swallowing, nausea, poor appetite, poor fluid intake, rectal bleeding, vomiting, other Genitourinary: Denies: no symptoms, burning, discharge, frequency, flank pain, hematuria, incontinence, pain, urgency, other Neurologic/Psychiatric: Denies: no symptoms, anxiety, depressed, emotional problems, headache, numbness, paresthesia, pre-existing deficit, seizure, tingling, tremors, weakness, other Endocrine: Denies: no symptoms, excessive sweating, flushing, intolerance to cold, intolerance to heat, increased hunger, increased thirst, increased urine, unexplained weight gain, unexplained weight loss, other Hematologic/Lymphatic: Denies: no symptoms, anemia, easy bleeding, easy bruising, adenopathy, other Allergies: Coded Allergies: No Known Allergies (Unverified , 12/15/20) Subjective 01/01 alert, awake, no major changes, labs ordered for am, mild abd pain 01/02 labs are noted, no bleeding, no new changes, cbc ordered Objective Objective Current Medications Medications (Trade) Dose Ordered Sig/Viji Route PRN Reason Start Time Stop Time Status Last Admin Dose Admin Furosemide (Lasix) 20 mg DAILY ORAL 01/02/21 09:00 02/01/21 08:59 Morphine Sulfate (Morphine Sulfate) 2 mg Q4H PRN IVP For Pain 12/31/20 00:45 01/07/21 00:44 01/02/21 03:01 Ondansetron HCl (Zofran) 4 mg Q4H PRN IVP Nausea & Vomiting 12/31/20 00:45 01/30/21 00:44 Pantoprazole (Protonix) 40 mg DAILY IVP 12/31/20 09:00 01/30/21 08:59 01/01/21 09:15 Sodium Chloride 1,000 ml @ 100 mls/hr Q10H IV 12/31/20 00:45 01/30/21 00:44 01/02/21 03:01 Spironolactone (Aldactone) 50 mg DAILY ORAL 01/02/21 09:00 02/01/21 08:59 Last 24 Hour Vital Signs Date Time Temp Pulse Resp B/P (MAP) Pulse Ox O2 Delivery O2 Flow Rate FiO2 01/02/21 04:00 97.0 72 16 107/67 (80) 98 01/02/21 00:00 98.2 82 18 107/75 (86) 96 01/01/21 21:00 Room Air 01/01/21 20:00 97.1 75 18 120/80 (93) 97 01/01/21 18:42 97.6 01/01/21 16:00 97.6 74 17 129/71 (90) 97 01/01/21 14:14 98.2 01/01/21 12:00 98.2 73 18 121/65 (83) 96 01/01/21 10:06 97.8 01/01/21 09:00 Room Air 01/01/21 08:00 97.8 64 19 116/70 (85) 96 01/01/21 05:33 98.0 01/01/21 04:06 98.0 16 118/74 (89) 96 01/01/21 01:30 97.7 12/31/20 21:39 97.7 12/31/20 20:21 Room Air 12/31/20 20:01 97.7 68 18 121/78 (92) 99 12/31/20 17:38 98.6 12/31/20 16:00 98.6 67 20 121/88 (99) 99 12/31/20 13:41 97.7 12/31/20 12:00 97.9 62 16 115/76 (89) 98 12/31/20 09:00 Room Air 12/31/20 08:47 97.7 12/31/20 08:00 97.2 63 20 114/76 (89) 98 Intake and Output 01/01/21 01/02/21 19:00 07:00 Intake Total 480 ml 1340 ml Output Total 1300 ml 3175 ml Balance -820 ml -1835 ml Intake Oral 480 ml 240 ml IV Total 1100 ml Output Urine Total 1300 ml 3175 ml # Voids 6 Labs Test 12/30/20 21:45 12/31/20 05:00 12/31/20 09:45 01/01/21 08:28 White Blood Count 5.6 K/UL (4.8-10.8) 3.1 K/UL (4.8-10.8) Red Blood Count 2.84 M/UL (4.70-6.10) 2.73 M/UL (4.70-6.10) Hemoglobin 9.6 G/DL (14.2-18.0) 9.3 G/DL (14.2-18.0) Hematocrit 29.9 % (42.0-52.0) 28.2 % (42.0-52.0) Mean Corpuscular Volume 105 FL (80-99) 103 FL (80-99) Mean Corpuscular Hemoglobin 33.8 PG (27.0-31.0) 34.2 PG (27.0-31.0) Mean Corpuscular Hemoglobin Concent 32.1 G/DL (32.0-36.0) 33.1 G/DL (32.0-36.0) Red Cell Distribution Width 12.5 % (11.6-14.8) 13.0 % (11.6-14.8) Platelet Count 131 K/UL (150-450) 99 K/UL (150-450) Mean Platelet Volume 6.8 FL (6.5-10.1) 5.9 FL (6.5-10.1) Neutrophils (%) (Auto) 66.4 % (45.0-75.0) % (45.0-75.0) Lymphocytes (%) (Auto) 20.7 % (20.0-45.0) % (20.0-45.0) Monocytes (%) (Auto) 7.8 % (1.0-10.0) % (1.0-10.0) Eosinophils (%) (Auto) 3.2 % (0.0-3.0) % (0.0-3.0) Basophils (%) (Auto) 1.9 % (0.0-2.0) % (0.0-2.0) Sodium Level 140 MMOL/L (136-145) 143 MMOL/L (136-145) 138 MMOL/L (136-145) Potassium Level 4.2 MMOL/L (3.5-5.1) 3.7 MMOL/L (3.5-5.1) 4.1 MMOL/L (3.5-5.1) Chloride Level 110 MMOL/L (98-107) 113 MMOL/L (98-107) 109 MMOL/L (98-107) Carbon Dioxide Level 21 MMOL/L (21-32) 23 MMOL/L (21-32) 22 MMOL/L (21-32) Anion Gap 9 mmol/L (5-15) 8 mmol/L (5-15) 7 mmol/L (5-15) Blood Urea Nitrogen 11 mg/dL (7-18) 12 mg/dL (7-18) 8 mg/dL (7-18) Creatinine 0.7 MG/DL (0.55-1.30) 0.6 MG/DL (0.55-1.30) 0.6 MG/DL (0.55-1.30) Estimat Glomerular Filtration Rate > 60 mL/min (>60) > 60 mL/min (>60) > 60 mL/min (>60) Glucose Level 112 MG/DL (74-106) 83 MG/DL (74-106) 66 MG/DL (74-106) Calcium Level 8.2 MG/DL (8.5-10.1) 8.0 MG/DL (8.5-10.1) 8.5 MG/DL (8.5-10.1) Total Bilirubin 5.1 MG/DL (0.2-1.0) 4.5 MG/DL (0.2-1.0) 5.5 MG/DL (0.2-1.0) Direct Bilirubin 3.3 MG/DL (0.0-0.3) 3.1 MG/DL (0.0-0.3) 3.5 MG/DL (0.0-0.3) Aspartate Amino Transf (AST/SGOT) 63 U/L (15-37) 45 U/L (15-37) 46 U/L (15-37) Alanine Aminotransferase (ALT/SGPT) 26 U/L (12-78) 22 U/L (12-78) 18 U/L (12-78) Alkaline Phosphatase 138 U/L (46-116) 96 U/L (46-116) 81 U/L (46-116) Total Protein 7.9 G/DL (6.4-8.2) 6.7 G/DL (6.4-8.2) 6.8 G/DL (6.4-8.2) Albumin 2.5 G/DL (3.4-5.0) 2.1 G/DL (3.4-5.0) 2.2 G/DL (3.4-5.0) Globulin 5.4 g/dL 4.6 g/dL 4.6 g/dL Albumin/Globulin Ratio 0.5 (1.0-2.7) 0.5 (1.0-2.7) 0.5 (1.0-2.7) Lipase > 2000 U/L (73-393) 1798 U/L (73-393) Urine Color Brown Urine Appearance Slightly cloudy Urine pH 7 (4.5-8.0) Urine Specific [place] 1.010 (1.005-1.035) Urine Protein Negative (NEGATIVE) Urine Glucose (UA) Negative (NEGATIVE) Urine Ketones Negative (NEGATIVE) Urine Blood Negative (NEGATIVE) Urine Nitrite Negative (NEGATIVE) Urine Bilirubin 1+ (NEGATIVE) Urine Ictotest Positive (NEGATIVE) Urine Urobilinogen 1 MG/DL (0.0-1.0) Urine Leukocyte Esterase 1+ (NEGATIVE) Urine RBC 0-2 /HPF (0 - 0) Urine WBC 0-2 /HPF (0 - 0) Urine Squamous Epithelial Cells Occasional /LPF Urine Amorphous Sediment Few /LPF (NONE) Urine Bacteria Occasional /HPF (NONE) Urine Mucus Moderate /LPF (NONE/OCC) Differential Total Cells Counted 100 Neutrophils % (Manual) 71 % (45-75) Lymphocytes % (Manual) 24 % (20-45) Monocytes % (Manual) 3 % (1-10) Eosinophils % (Manual) 2 % (0-3) Basophils % (Manual) 0 % (0-2) Band Neutrophils 0 % (0-8) Platelet Estimate Decreased Platelet Morphology Normal Macrocytosis 1+ Amylase Level 439 U/L (25-115) Test 01/02/21 04:00 Height (Feet): 6 Height (Inches): 0.00 Weight (Pounds): 170 Objective PE Vitals: reviewed Sp02 EP Interpretation: reviewed, normal General Appearance: no apparent distress, alert, cachetic Head: normocephalic, atraumatic Eyes: bilateral eye PERRL, bilateral eye EOMI, bilateral eye scleral icterus ENT: hearing grossly normal, normal pharynx Neck: full range of motion, supple, no meningismus Respiratory: chest non-tender, lungs clear, normal breath sounds Cardiovascular #1: regular rate, rhythm, no murmur Gastrointestinal: normal bowel sounds, no mass, no organomegaly, no bruit, non- distended, tenderness - Left lower quadrant, other - Ascites, but not tense Musculoskeletal: back normal, normal range of motion, gait/station normal Psychiatric: mood/affect normal Skin: jaundice Carl Jessica MD Jan 02, 2021 06:38
--- NOTE | 2021-01-02 07:01 | NUR ---
NURSE HAND-OFF: Important Events on Shift: Pain management Patient Status: Stable Diet: Full liquid Pending Orders: [] Pending Results/Labs:[] Pending MD notification:[] Latest Vital Signs: Temperature 97.0 , Pulse 72 , B/P 107 /67 , Respiratory Rate 16 , O2 SAT 98 , Room Air, O2 Flow Rate . Vital Sign Comment: VS stable Latest Fragoso Fall Score: 35 Fall Risk: Medium Risk Safety Measures: Call light Within Reach, Bed Alarm Zone 1, Side Rails Side Rails x1, Bed position Low and Locked. Fall Precautions: Patient Fall Education Report will be given to Hellen LIN.
[2021-01-02 07:19] LABS: HEMATOCRIT 26.1 % (42.0-52.0); HEMOGLOBIN 8.8 G/DL (14.2-18.0); MEAN CORPUSCULAR VOLUME 101 FL (80-99); PLATELET COUNT 122 K/UL (150-450); RED BLOOD COUNT 2.58 M/UL (4.70-6.10); RED CELL DISTRIBUTION WIDTH 12.6 % (11.6-14.8); WHITE BLOOD COUNT 2.8 K/UL (4.8-10.8)
[2021-01-02 07:38] LABS: AMMONIA 64 umol/L (11-32)
--- NOTE | 2021-01-02 07:45 | NUR ---
NURSE NOTES: Received report from DELIA Zhang. Patient awake, alert, and oriented x4. Breathing is even and unlabored on RA. No acute distress noted. Pt c/o abd pain 05/26. Will administer PRN pain meds as ordered. IV right AC intact and patent. Bed low and locked. Call light within reach. Will continue to monitor.
[2021-01-02 07:50] LABS: ALANINE AMINOTRANSFERASE 25 U/L (12-78); ALBUMIN 2.1 G/DL (3.4-5.0); ALBUMIN/GLOBULIN RATIO 0.5 (1.0-2.7); ALKALINE PHOSPHATASE 81 U/L (46-116); ANION GAP 8 mmol/L (5-15); ASPARTATE AMINO TRANSFERASE 54 U/L (15-37); BILIRUBIN,TOTAL 4.7 MG/DL (0.2-1.0); BLOOD UREA NITROGEN 5 mg/dL (7-18); CALCIUM 8.1 MG/DL (8.5-10.1); CARBON DIOXIDE 22 MMOL/L (21-32); CHLORIDE 110 MMOL/L (98-107); CREATININE 0.6 MG/DL (0.55-1.30); POTASSIUM 3.7 MMOL/L (3.5-5.1); SODIUM 140 MMOL/L (136-145)
[2021-01-02 07:51] LABS: BILIRUBIN,DIRECT 3.1 MG/DL (0.0-0.3)
[2021-01-02 08:00] VITALS: BP 114/73
[2021-01-02] MEDS: Spironolactone 50mg tab ORAL SCH (08:51)
[2021-01-02] MEDS: Pantoprazole Inj IVP SCH (08:51)
--- NOTE | 2021-01-02 09:21 | NUR ---
RD ASSESSMENT & RECOMMENDATIONS SEE CARE ACTIVITY FOR COMPLETE ASSESSMENT DAILY ESTIMATED NEEDS: Needs based on Pancreatitis/ 77kg 25-30 kcals/kg 6057-5183 total kcals 1-1.5 g protein/kg 77-115 g total protein 25-30 mL/kg 2114-3023 total fluid mLs NUTRITION DIAGNOSIS: Altered nutrition related lab values R/T alcoholic pancreatitis as evidenced by elev lipase (>2000), elev amylase (496), elev T bili (5.7), elev AST. CURRENT DIET:FULL LIQUID DIET PO DIET RECOMMENDATIONS: LOW FAT, LOW NA ADDITIONAL RECOMMENDATIONS: * Standing wt as able for accurate CBW * Trend liver fxn and pancreatic enzymes * Monitor PO tolerance * Add MVI x 1, [id number] QD, and Folate 1mg Q daily * Monitor lytes closely w/ diuretics, replete as needed
[2021-01-02 12:00] VITALS: BP 118/72
--- NOTE | 2021-01-02 15:20 | NUR ---
CASE MANAGEMENT:REVIEW 01/02/21 SI: PANCREATITIS. ALCOHOLIC CIRRHOSIS W/ASCITES 97.5 87 16 118/72 96% ON RA WBC-2.8 H/H-8.8/26.1 PLT-122 AMMONIA+64 LIPASE+1753 IS: PROTONIX PO QD ALDACTONE PO QD LASIX PO QD IV MORPHINE 2MG Q4HRS PRN IVF@100/HR : MED/SURG STATUS DCP; FROM HOME
[2021-01-02 16:00] VITALS: BP 108/70
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
--- NOTE | 2021-01-02 17:14 | Surgery Progress Note ---
Surgery Progress Note Subjective Symptoms: improved, tolerating diet, voiding well, passing flatus, BM Objective Last 24 Hour Vital Signs Date Time Temp Pulse Resp B/P (MAP) Pulse Ox O2 Delivery O2 Flow Rate FiO2 01/02/21 16:00 97.9 77 16 108/70 (83) 96 01/02/21 15:23 97.5 01/02/21 12:00 97.5 87 16 118/72 (87) 96 01/02/21 09:21 97.0 01/02/21 09:00 Room Air 01/02/21 08:00 97.9 74 16 114/73 (87) 94 01/02/21 04:00 97.0 72 16 107/67 (80) 98 01/02/21 00:00 98.2 82 18 107/75 (86) 96 01/01/21 21:00 Room Air 01/01/21 20:00 97.1 75 18 120/80 (93) 97 01/01/21 18:42 97.6 I&O Intake and Output 01/01/21 01/02/21 19:00 07:00 Intake Total 480 ml 1340 ml Output Total 1300 ml 3175 ml Balance -820 ml -1835 ml Intake Oral 480 ml 240 ml IV Total 1100 ml Output Urine Total 1300 ml 3175 ml # Voids 6 Cardiovascular: RSR Respiratory: clear Abdomen: soft, flat, non-tender, present bowel sounds, non-distended Extremities: no edema, no tenderness, no cyanosis Laboratory Tests Test 01/02/21 06:17 White Blood Count 2.8 K/UL (4.8-10.8) L Red Blood Count 2.58 M/UL (4.70-6.10) L Hemoglobin 8.8 G/DL (14.2-18.0) L Hematocrit 26.1 % (42.0-52.0) L Mean Corpuscular Volume 101 FL (80-99) H Mean Corpuscular Hemoglobin 34.2 PG (27.0-31.0) H Mean Corpuscular Hemoglobin Concent 33.9 G/DL (32.0-36.0) Red Cell Distribution Width 12.6 % (11.6-14.8) Platelet Count 122 K/UL (150-450) L Mean Platelet Volume 7.3 FL (6.5-10.1) Neutrophils (%) (Auto) % (45.0-75.0) Lymphocytes (%) (Auto) % (20.0-45.0) Monocytes (%) (Auto) % (1.0-10.0) Eosinophils (%) (Auto) % (0.0-3.0) Basophils (%) (Auto) % (0.0-2.0) Differential Total Cells Counted 100 Neutrophils % (Manual) 56 % (45-75) Lymphocytes % (Manual) 31 % (20-45) Monocytes % (Manual) 9 % (1-10) Eosinophils % (Manual) 4 % (0-3) H Basophils % (Manual) 0 % (0-2) Band Neutrophils 0 % (0-8) Platelet Estimate Decreased L Platelet Morphology Normal Hypochromasia 1+ Macrocytosis 1+ Sodium Level 140 MMOL/L (136-145) Potassium Level 3.7 MMOL/L (3.5-5.1) Chloride Level 110 MMOL/L (98-107) H Carbon Dioxide Level 22 MMOL/L (21-32) Anion Gap 8 mmol/L (5-15) Blood Urea Nitrogen 5 mg/dL (7-18) L Creatinine 0.6 MG/DL (0.55-1.30) Estimat Glomerular Filtration Rate > 60 mL/min (>60) Glucose Level 80 MG/DL (74-106) Calcium Level 8.1 MG/DL (8.5-10.1) L Total Bilirubin 4.7 MG/DL (0.2-1.0) H Direct Bilirubin 3.1 MG/DL (0.0-0.3) H Aspartate Amino Transf (AST/SGOT) 54 U/L (15-37) H Alanine Aminotransferase (ALT/SGPT) 25 U/L (12-78) Alkaline Phosphatase 81 U/L (46-116) Ammonia 64 umol/L (11-32) H Total Protein 6.5 G/DL (6.4-8.2) Albumin 2.1 G/DL (3.4-5.0) L Globulin 4.4 g/dL Albumin/Globulin Ratio 0.5 (1.0-2.7) L Lipase 1753 U/L (73-393) H Alpha Fetoprotein Pending Plan Problems: (1) Pancreatitis Assessment & Plan: 30-year-old male well-known to sd liver insufficiency history of pancreatitis heavy drinker continues to drink now lower abdominal pain noted to have pancreatitis again lipase greater than [address] reviewed. No acute surgical intervention. N.p.o. IV fluids trend labs. Alcohol cessation. Patient is noncompliant with care plan I have had a long discussion with him during prior admission about alcohol cessation but he continues to drink. He understands his liver insufficiency and the consequences but continues to drink. improving diet d/c [planning Liver: Mild nodularity of the liver surface consistent with cirrhosis. There is evidence of portal hypertension including a recanalized paraumbilical vein and splenomegaly. Gallbladder and bile ducts: Gallbladder wall thickening however this is nonspecific, especially in the setting of chronic liver disease. No calcified gallstones identified. Pancreas: Again identified are mabel-pancreatic inflammatory changes. Slight interval increase in size of an organized fluid collection adjacent to the pancreatic tail previously measuring 65 mm and currently measuring up to 68 mm. No other organized fluid collection identified. Spleen: Again noted is splenomegaly. Adrenals: Unremarkable. No mass. Kidneys and ureters: Unremarkable. No obstructing stones. No hydronephrosis. Stomach and bowel: Unremarkable. No obstruction. No mucosal thickening. PELVIS: Appendix: Normal appendix (4: 120). Bladder: The wall appears mildly thickened however this is likely related to the lack of distention. Reproductive: Unremarkable as visualized. ABDOMEN and PELVIS: Intraperitoneal space: No free air. Unchanged mild to moderate volume ascites. Bones/joints: Unremarkable. Soft tissues: Mild anasarca. Vasculature: No abdominal aortic aneurysm. Lymph nodes: No enlarged lymph nodes. IMPRESSION: 1. Peripancreatic inflammatory changes are again noted. Correlate with amylase and lipase for recurrent pancreatitis. 2. Slight interval decrease in size of an organized fluid collection adjacent to the pancreatic tail. No new organized fluid collection identified. 3. No other new acute process identified within the abdomen or pelvis. 4. Cirrhosis with evidence of portal hypertension, as above. 5. Stable large bilateral pleural effusions with lower lobe compressive atelectasis. 6. Unchanged mild to moderate volume ascites. (2) Alcoholic cirrhosis of liver with ascites Didier Mittal Jan 02, 2021 17:14
--- NOTE | 2021-01-02 17:36 | NUR ---
CHARGE NURSE NOTE: Ammonia level 64. aware. No new orders given.
--- NOTE | 2021-01-02 19:35 | NUR ---
NURSE HAND-OFF: Important Events on Shift:[Pain management] Patient Status: [] Diet: [full liquid] Pending Orders: [] Pending Results/Labs:[] Pending MD notification:[] Latest Vital Signs: Temperature 97.9 , Pulse 77 , B/P 108 /70 , Respiratory Rate 16 , O2 SAT 96 , Room Air, O2 Flow Rate . Vital Sign Comment: [stable] Latest Fragoso Fall Score: 35 Fall Risk: Medium Risk Safety Measures: Call light Within Reach, Bed Alarm Zone 1, Side Rails Side Rails x1, Bed position Low and Locked. Fall Precautions: Patient Fall Education Report given to [DELIA Harris].
--- NOTE | 2021-01-02 19:51 | NUR ---
NURSE NOTES: Received patient awake in bed, no s/s of acute distress, AOx4. IV access patent, dressing dry and intact, running IVF maintenance at 100cc/hr, patient tolerating well. Patient ambulatory with steady gait, wearing non slip socks, bed low and locked.
[2021-01-02 20:00] VITALS: BP 123/82
--- NOTE | 2021-01-02 20:49 | General Progress Note ---
Subjective Constitutional: Denies: malaise Allergies: Coded Allergies: No Known Allergies (Unverified , 12/15/20) Subjective Feels OK less pain tolerating full liq diet advised to f/u at a liver transplant center after d/c Objective Last 24 Hour Vital Signs Date Time Temp Pulse Resp B/P (MAP) Pulse Ox O2 Delivery O2 Flow Rate FiO2 01/02/21 20:00 98.4 74 16 123/82 (96) 98 01/02/21 16:00 97.9 77 16 108/70 (83) 96 01/02/21 15:23 97.5 01/02/21 12:00 97.5 87 16 118/72 (87) 96 01/02/21 09:21 97.0 01/02/21 09:00 Room Air 01/02/21 08:00 97.9 74 16 114/73 (87) 94 01/02/21 04:00 97.0 72 16 107/67 (80) 98 01/02/21 00:00 98.2 82 18 107/75 (86) 96 01/01/21 21:00 Room Air Intake and Output 0 01/01/21 01/02/21 19:00 07:00 Intake Total 480 ml 1340 ml Output Total 1300 ml 3175 ml Balance -820 ml -1835 ml Intake Oral 480 ml 240 ml IV Total 1100 ml Output Urine Total 1300 ml 3175 ml # Voids 6 Laboratory Tests 01/02/21 06:17: White Blood Count 2.8L, Red Blood Count 2.58L, Hemoglobin 8.8L, Hematocrit 26.1L , Mean Corpuscular Volume 101H, Mean Corpuscular Hemoglobin 34.2H, Mean Corpuscular Hemoglobin Concent 33.9, Red Cell Distribution Width 12.6, Platelet Count 122L, Mean Platelet Volume 7.3, Neutrophils (%) (Auto) , Lymphocytes (%) (Auto) , Monocytes (%) (Auto) , Eosinophils (%) (Auto) , Basophils (%) (Auto) , Differential Total Cells Counted 100, Neutrophils % (Manual) 56, Lymphocytes % (Manual) 31, Monocytes % (Manual) 9, Eosinophils % (Manual) 4H, Basophils % (Manual) 0, Band Neutrophils 0, Platelet Estimate DecreasedL, Platelet Morphology Normal, Hypochromasia 1+, Macrocytosis 1+, Sodium Level 140, Po tassium Level 3.7, Chloride Level 110H, Carbon Dioxide Level 22, Anion Gap 8, Blood Urea Nitrogen 5L, Creatinine 0.6, Estimat Glomerular Filtration Rate > 60, Glucose Level 80, Calcium Level 8.1L, Total Bilirubin 4.7H, Direct Bilirubin 3.1H, Aspartate Amino Transf (AST/SGOT) 54H, Alanine Aminotransferase (ALT/SGPT) 25, Alkaline Phosphatase 81, Ammonia 64H, Total Protein 6.5, Albumin 2.1L, Globulin 4.4, Albumin/Globulin Ratio 0.5L, Lipase 1753H, Alpha Fetoprotein [Pending] Height (Feet): 6 Height (Inches): 0.00 Weight (Pounds): 170 Objective NCAT supple CTA RR abd soft ND, less epigastric TTP no edema Assessment/Plan Assessment/Plan: Assessment - EtOH cirrhosis - EtOH hepatitis - Recurrent pancreatitis - pancreatic pseudocyst - portal HTN - pleural effusions Recommendations - Full liquids - follow labs and exam - trental trial - outpatient referral to liver transplant center Ankit Berrios MD Jan 02, 2021 20:49
[2021-01-03] MEDS: Morphine Sulfate 2mg/ml Inj(IV/IM USE ONLY) IVP PRN ×2 (03:08→08:11)
[2021-01-03 04:00] VITALS: BP 107/80
[2021-01-03 06:17] LABS: HEMATOCRIT 27.6 % (42.0-52.0); HEMOGLOBIN 9.2 G/DL (14.2-18.0); MEAN CORPUSCULAR VOLUME 101 FL (80-99); PLATELET COUNT 119 K/UL (150-450); RED BLOOD COUNT 2.74 M/UL (4.70-6.10); RED CELL DISTRIBUTION WIDTH 12.9 % (11.6-14.8); WHITE BLOOD COUNT 3.3 K/UL (4.8-10.8)
[2021-01-03 06:18] LABS: ANION GAP 7 mmol/L (5-15); BLOOD UREA NITROGEN 4 mg/dL (7-18); CARBON DIOXIDE 24 MMOL/L (21-32); CHLORIDE 109 MMOL/L (98-107); CREATININE 0.6 MG/DL (0.55-1.30); POTASSIUM 3.7 MMOL/L (3.5-5.1); SODIUM 139 MMOL/L (136-145)
[2021-01-03 06:58] LABS: AMYLASE 466 U/L (25-115)
--- NOTE | 2021-01-03 07:02 | Hematology/Onc Progress Note ---
Assessment/Plan Assessment/Plan # Pancytopenia - multiple etiologies and most likely relatd to cirrhosis --> Continue to monitor for improvement --> Hep panel and HIV NEG --> CT abd Cirrhosis with evidence of portal hypertension, --> Medications have been reviewed --> Consider neupogen if Anc <500 --> dc etoh use --> wbc 3 --> hgb 9 --> plt 119 # Acute pancreatitis. --> as per surg and gi --> npo for now --> continue on ivf3. Pseudocyst of pancreas. # Jaundice. # Hypalbuminemia # Severe malnutrition. # Dvt ppx ambulation once mental status better Subjective HEENT: Denies: no symptoms, eye pain, blurred vision, tearing, double vision, ear pain, ear discharge, nose pain, nose congestion, throat pain, throat swelling, mouth pain, mouth swelling, other Cardiovascular: Denies: no symptoms, chest pain, edema, irregular heart rate, lightheadedness, palpitations, syncope, other Respiratory: Denies: no symptoms, cough, shortness of breath, SOB with excertion, SOB at rest, sputum, wheezing, other Gastrointestinal/Abdominal: Denies: no symptoms, abdomen distended, abdominal pain, black stools, tarry stools, blood in stool, constipated, diarrhea, difficulty swallowing, nausea, poor appetite, poor fluid intake, rectal bleeding, vomiting, other Genitourinary: Denies: no symptoms, burning, discharge, frequency, flank pain, hematuria, incontinence, pain, urgency, other Neurologic/Psychiatric: Denies: no symptoms, anxiety, depressed, emotional problems, headache, numbness, paresthesia, pre-existing deficit, seizure, tingling, tremors, weakness, other Hematologic/Lymphatic: Denies: no symptoms, anemia, easy bleeding, easy bruising, adenopathy, other Allergies: Coded Allergies: No Known Allergies (Unverified , 12/15/20) Subjective 01/01 alert, awake, no major changes, labs ordered for am, mild abd pain 01/02 labs are noted, no bleeding, no new changes, cbc ordered 01/03 labs reviewed, wbc is 3, meds noted, no hemolysis Objective Objective Current Medications Medications (Trade) Dose Ordered Sig/Viji Route PRN Reason Start Time Stop Time Status Last Admin Dose Admin Furosemide (Lasix) 20 mg DAILY ORAL 01/02/21 09:00 02/01/21 08:59 01/02/21 08:52 Morphine Sulfate (Morphine Sulfate) 2 mg Q4H PRN IVP For Pain 12/31/20 00:45 01/07/21 00:44 01/03/21 03:08 Ondansetron HCl (Zofran) 4 mg Q4H PRN IVP Nausea & Vomiting 12/31/20 00:45 01/30/21 00:44 Pantoprazole (Protonix) 40 mg DAILY ORAL 01/03/21 09:00 02/02/21 08:59 Sodium Chloride 1,000 ml @ 100 mls/hr Q10H IV 12/31/20 00:45 01/30/21 00:44 01/02/21 23:00 Spironolactone (Aldactone) 50 mg DAILY ORAL 01/02/21 09:00 02/01/21 08:59 01/02/21 08:51 Last 24 Hour Vital Signs Date Time Temp Pulse Resp B/P (MAP) Pulse Ox O2 Delivery O2 Flow Rate FiO2 01/03/21 04:00 97.9 72 17 107/80 (89) 97 01/03/21 03:38 98.4 01/02/21 21:29 98.4 01/02/21 21:10 Room Air 01/02/21 20:00 98.4 74 16 123/82 (96) 98 01/02/21 16:00 97.9 77 16 108/70 (83) 96 01/02/21 15:23 97.5 01/02/21 12:00 97.5 87 16 118/72 (87) 96 01/02/21 09:21 97.0 01/02/21 09:00 Room Air 01/02/21 08:00 97.9 74 16 114/73 (87) 94 01/02/21 04:00 97.0 72 16 107/67 (80) 98 01/02/21 00:00 98.2 82 18 107/75 (86) 96 01/01/21 21:00 Room Air 01/01/21 20:00 97.1 75 18 120/80 (93) 97 01/01/21 18:42 97.6 01/01/21 16:00 97.6 74 17 129/71 (90) 97 01/01/21 14:14 98.2 01/01/21 12:00 98.2 73 18 121/65 (83) 96 01/01/21 10:06 97.8 01/01/21 09:00 Room Air 01/01/21 08:00 97.8 64 19 116/70 (85) 96 Intake and Output 01/02/21 01/03/21 19:00 07:00 Output Total 2100 ml Balance -2100 ml Output Urine Total 2100 ml # Voids 4 Labs Test 12/31/20 09:45 01/01/21 08:28 01/02/21 06:17 01/03/21 05:00 Sodium Level 143 MMOL/L (136-145) 138 MMOL/L (136-145) 140 MMOL/L (136-145) 139 MMOL/L (136-145) Potassium Level 3.7 MMOL/L (3.5-5.1) 4.1 MMOL/L (3.5-5.1) 3.7 MMOL/L (3.5-5.1) 3.7 MMOL/L (3.5-5.1) Chloride Level 113 MMOL/L (98-107) 109 MMOL/L (98-107) 110 MMOL/L (98-107) 109 MMOL/L (98-107) Carbon Dioxide Level 23 MMOL/L (21-32) 22 MMOL/L (21-32) 22 MMOL/L (21-32) 24 MMOL/L (21-32) Anion Gap 8 mmol/L (5-15) 7 mmol/L (5-15) 8 mmol/L (5-15) 7 mmol/L (5-15) Blood Urea Nitrogen 12 mg/dL (7-18) 8 mg/dL (7-18) 5 mg/dL (7-18) 4 mg/dL (7-18) Creatinine 0.6 MG/DL (0.55-1.30) 0.6 MG/DL (0.55-1.30) 0.6 MG/DL (0.55-1.30) 0.6 MG/DL (0.55-1.30) Estimat Glomerular Filtration Rate > 60 mL/min (>60) > 60 mL/min (>60) > 60 mL/min (>60) > 60 mL/min (>60) Glucose Level 83 MG/DL (74-106) 66 MG/DL (74-106) 80 MG/DL (74-106) 99 MG/DL (74-106) Calcium Level 8.0 MG/DL (8.5-10.1) 8.5 MG/DL (8.5-10.1) 8.1 MG/DL (8.5-10.1) 8.0 MG/DL (8.5-10.1) Total Bilirubin 4.5 MG/DL (0.2-1.0) 5.5 MG/DL (0.2-1.0) 4.7 MG/DL (0.2-1.0) Direct Bilirubin 3.1 MG/DL (0.0-0.3) 3.5 MG/DL (0.0-0.3) 3.1 MG/DL (0.0-0.3) Aspartate Amino Transf (AST/SGOT) 45 U/L (15-37) 46 U/L (15-37) 54 U/L (15-37) Alanine Aminotransferase (ALT/SGPT) 22 U/L (12-78) 18 U/L (12-78) 25 U/L (12-78) Alkaline Phosphatase 96 U/L (46-116) 81 U/L (46-116) 81 U/L (46-116) Total Protein 6.7 G/DL (6.4-8.2) 6.8 G/DL (6.4-8.2) 6.5 G/DL (6.4-8.2) Albumin 2.1 G/DL (3.4-5.0) 2.2 G/DL (3.4-5.0) 2.1 G/DL (3.4-5.0) Globulin 4.6 g/dL 4.6 g/dL 4.4 g/dL Albumin/Globulin Ratio 0.5 (1.0-2.7) 0.5 (1.0-2.7) 0.5 (1.0-2.7) White Blood Count 3.1 K/UL (4.8-10.8) 2.8 K/UL (4.8-10.8) 3.3 K/UL (4.8-10.8) Red Blood Count 2.73 M/UL (4.70-6.10) 2.58 M/UL (4.70-6.10) 2.74 M/UL (4.70-6.10) Hemoglobin 9.3 G/DL (14.2-18.0) 8.8 G/DL (14.2-18.0) 9.2 G/DL (14.2-18.0) Hematocrit 28.2 % (42.0-52.0) 26.1 % (42.0-52.0) 27.6 % (42.0-52.0) Mean Corpuscular Volume 103 FL (80-99) 101 FL (80-99) 101 FL (80-99) Mean Corpuscular Hemoglobin 34.2 PG (27.0-31.0) 34.2 PG (27.0-31.0) 33.5 PG (27.0-31.0) Mean Corpuscular Hemoglobin Concent 33.1 G/DL (32.0-36.0) 33.9 G/DL (32.0-36.0) 33.3 G/DL (32.0-36.0) Red Cell Distribution Width 13.0 % (11.6-14.8) 12.6 % (11.6-14.8) 12.9 % (11.6-14.8) Platelet Count 99 K/UL (150-450) 122 K/UL (150-450) 119 K/UL (150-450) Mean Platelet Volume 5.9 FL (6.5-10.1) 7.3 FL (6.5-10.1) 6.2 FL (6.5-10.1) Neutrophils (%) (Auto) % (45.0-75.0) % (45.0-75.0) % (45.0-75.0) Lymphocytes (%) (Auto) % (20.0-45.0) % (20.0-45.0) % (20.0-45.0) Monocytes (%) (Auto) % (1.0-10.0) % (1.0-10.0) % (1.0-10.0) Eosinophils (%) (Auto) % (0.0-3.0) % (0.0-3.0) % (0.0-3.0) Basophils (%) (Auto) % (0.0-2.0) % (0.0-2.0) % (0.0-2.0) Differential Total Cells Counted 100 100 Neutrophils % (Manual) 71 % (45-75) 56 % (45-75) Lymphocytes % (Manual) 24 % (20-45) 31 % (20-45) Monocytes % (Manual) 3 % (1-10) 9 % (1-10) Eosinophils % (Manual) 2 % (0-3) 4 % (0-3) Basophils % (Manual) 0 % (0-2) 0 % (0-2) Band Neutrophils 0 % (0-8) 0 % (0-8) Platelet Estimate Decreased Decreased Platelet Morphology Normal Normal Macrocytosis 1+ 1+ Amylase Level 439 U/L (25-115) Lipase 1798 U/L (73-393) 1753 U/L (73-393) Hypochromasia 1+ Ammonia 64 umol/L (11-32) Height (Feet): 6 Height (Inches): 0.00 Weight (Pounds): 170 Objective PE Vitals: reviewed Sp02 EP Interpretation: reviewed, normal General Appearance: no apparent distress, alert, cachetic Head: normocephalic, atraumatic Eyes: bilateral eye PERRL, bilateral eye EOMI, bilateral eye scleral icterus ENT: hearing grossly normal, normal pharynx Neck: full range of motion, supple, no meningismus Respiratory: chest non-tender, lungs clear, normal breath sounds Cardiovascular #1: regular rate, rhythm, no murmur Gastrointestinal: normal bowel sounds, no mass, no organomegaly, no bruit, non- distended, tenderness - Left lower quadrant, other - Ascites, but not tense Musculoskeletal: back normal, normal range of motion, gait/station normal Psychiatric: mood/affect normal Skin: jaundice Carl Jessica MD Jan 03, 2021 07:02
--- NOTE | 2021-01-03 07:28 | NUR ---
CASE MANAGEMENT:REVIEW 01/02/21 SI: ACUTE PANCREATITIS. JAUNDICED. SEVERE MALNUTRITION 97.9 72 17 107/80 97% ON RA WBC-3.3 PLT-119 AMYLASE+466 LIPASE > 2000 IS: PROTONIX PO QD ALDACTONE PO QD LASIX PO QD IV MORPHINE 2MG Q4HRS PRN IVF@100/HR : MED/SURG STATUS DCP; FROM HOME PLAN: FULL LIQUID DIET ADVISED TO F/U [facility] AFTER DISCHARGE
--- NOTE | 2021-01-03 07:30 | NUR ---
NURSE NOTES: report given to DELIA Macedo
[2021-01-03 08:00] VITALS: BP 114/81
[2021-01-03] MEDS: Spironolactone 50mg tab ORAL SCH (08:11)
--- NOTE | 2021-01-03 09:35 | General Progress Note ---
Subjective Allergies: Coded Allergies: No Known Allergies (Unverified , 12/15/20) Subjective doing better Objective Last 24 Hour Vital Signs Date Time Temp Pulse Resp B/P (MAP) Pulse Ox O2 Delivery O2 Flow Rate FiO2 01/03/21 08:41 97.9 01/03/21 04:00 97.9 72 17 107/80 (89) 97 01/03/21 03:38 98.4 01/02/21 21:29 98.4 01/02/21 21:10 Room Air 01/02/21 20:00 98.4 74 16 123/82 (96) 98 01/02/21 16:00 97.9 77 16 108/70 (83) 96 01/02/21 15:23 97.5 01/02/21 12:00 97.5 87 16 118/72 (87) 96 Intake and Output 01/02/21 01/03/21 19:00 07:00 Output Total 2100 ml Balance -2100 ml Output Urine Total 2100 ml # Voids 4 Laboratory Tests 01/03/21 05:00: White Blood Count 3.3L, Red Blood Count 2.74L, Hemoglobin 9.2L, Hematocrit 27.6L , Mean Corpuscular Volume 101H, Mean Corpuscular Hemoglobin 33.5H, Mean Corpuscular Hemoglobin Concent 33.3, Red Cell Distribution Width 12.9, Platelet Count 119L, Mean Platelet Volume 6.2L, Neutrophils (%) (Auto) , Lymphocytes (%) (Auto) , Monocytes (%) (Auto) , Eosinophils (%) (Auto) , Basophils (%) (Auto) , Differential Total Cells Counted 100, Neutrophils % (Manual) 56, Lymphocytes % (Manual) 33, Monocytes % (Manual) 8, Eosinophils % (Manual) 2, Basophils % (Manual) 1, Band Neutrophils 0, Platelet Estimate DecreasedL, Platelet Morphology Normal, Macrocytosis 1+, Sodium Level 139, Potassium Level 3.7, Chloride Level 109H, Carbon Dioxide Level 24, Anion Gap 7, Blood Urea Nitrogen 4L, Creatinine 0.6, Estimat Glomerular Filtration Rate > 60, Glucose Level 99, Calcium Level 8.0L, Amylase Level 466H, Lipase > 2000H Height (Feet): 6 Height (Inches): 0.00 Weight (Pounds): 170 General Appearance: alert EENT: normal ENT inspection Cardiovascular: regular rhythm Respiratory/Chest: normal breath sounds Abdomen: soft, tender Assessment/Plan Assessment/Plan: ac pancreatitis hx etoh abused pseudocyst npo ivf pain meds gi consult Charlie Lott MD Jan 03, 2021 09:35
--- NOTE | 2021-01-03 09:37 | NUR ---
NURSE NOTES: Spoke to regarding patient and new order received. Order read back and carried out.
[2021-01-03 11:54] VITALS: BP 117/64
--- NOTE | 2021-01-03 12:42 | Surgery Progress Note ---
Surgery Progress Note Subjective Symptoms: improved, pain absent, tolerating diet, voiding well, passing flatus, BM Objective Last 24 Hour Vital Signs Date Time Temp Pulse Resp B/P (MAP) Pulse Ox O2 Delivery O2 Flow Rate FiO2 01/03/21 11:54 99.0 81 17 117/64 (81) 96 01/03/21 09:00 Room Air 01/03/21 08:41 97.9 01/03/21 08:00 98.6 84 17 114/81 (92) 96 01/03/21 08:00 98.6 84 17 114/81 (92) 96 01/03/21 04:00 97.9 72 17 107/80 (89) 97 01/03/21 03:38 98.4 01/02/21 21:29 98.4 01/02/21 21:10 Room Air 01/02/21 20:00 98.4 74 16 123/82 (96) 98 01/02/21 16:00 97.9 77 16 108/70 (83) 96 01/02/21 15:23 97.5 I&O Intake and Output 01/02/21 01/03/21 19:00 07:00 Output Total 2100 ml Balance -2100 ml Output Urine Total 2100 ml # Voids 4 Cardiovascular: RSR Respiratory: clear Abdomen: soft, flat, non-tender, present bowel sounds, non-distended Extremities: no edema, no tenderness, no cyanosis Laboratory Tests Test 01/03/21 05:00 White Blood Count 3.3 K/UL (4.8-10.8) L Red Blood Count 2.74 M/UL (4.70-6.10) L Hemoglobin 9.2 G/DL (14.2-18.0) L Hematocrit 27.6 % (42.0-52.0) L Mean Corpuscular Volume 101 FL (80-99) H Mean Corpuscular Hemoglobin 33.5 PG (27.0-31.0) H Mean Corpuscular Hemoglobin Concent 33.3 G/DL (32.0-36.0) Red Cell Distribution Width 12.9 % (11.6-14.8) Platelet Count 119 K/UL (150-450) L Mean Platelet Volume 6.2 FL (6.5-10.1) L Neutrophils (%) (Auto) % (45.0-75.0) Lymphocytes (%) (Auto) % (20.0-45.0) Monocytes (%) (Auto) % (1.0-10.0) Eosinophils (%) (Auto) % (0.0-3.0) Basophils (%) (Auto) % (0.0-2.0) Differential Total Cells Counted 100 Neutrophils % (Manual) 56 % (45-75) Lymphocytes % (Manual) 33 % (20-45) Monocytes % (Manual) 8 % (1-10) Eosinophils % (Manual) 2 % (0-3) Basophils % (Manual) 1 % (0-2) Band Neutrophils 0 % (0-8) Platelet Estimate Decreased L Platelet Morphology Normal Macrocytosis 1+ Sodium Level 139 MMOL/L (136-145) Potassium Level 3.7 MMOL/L (3.5-5.1) Chloride Level 109 MMOL/L (98-107) H Carbon Dioxide Level 24 MMOL/L (21-32) Anion Gap 7 mmol/L (5-15) Blood Urea Nitrogen 4 mg/dL (7-18) L Creatinine 0.6 MG/DL (0.55-1.30) Estimat Glomerular Filtration Rate > 60 mL/min (>60) Glucose Level 99 MG/DL (74-106) Calcium Level 8.0 MG/DL (8.5-10.1) L Amylase Level 466 U/L (25-115) H Lipase > 2000 U/L (73-393) H Plan Problems: (1) Pancreatitis Assessment & Plan: 30-year-old male well-known to [place] liver insufficiency history of pancreatitis heavy drinker continues to drink now lower abdominal pain noted to have pancreatitis again lipase greater than [address] reviewed. No acute surgical intervention. N.p.o. IV fluids trend labs. Alcohol cessation. Patient is noncompliant with care plan I have had a long discussion with him during prior admission about alcohol cessation but he continues to drink. He understands his liver insufficiency and the consequences but continues to drink. improving diet d/c [planning Liver: Mild nodularity of the liver surface consistent with cirrhosis. There is evidence of portal hypertension including a recanalized paraumbilical vein and splenomegaly. Gallbladder and bile ducts: Gallbladder wall thickening however this is nonspecific, especially in the setting of chronic liver disease. No calcified gallstones identified. Pancreas: Again identified are mabel-pancreatic inflammatory changes. Slight interval increase in size of an organized fluid collection adjacent to the pancreatic tail previously measuring 65 mm and currently measuring up to 68 mm. No other organized fluid collection identified. Spleen: Again noted is splenomegaly. Adrenals: Unremarkable. No mass. Kidneys and ureters: Unremarkable. No obstructing stones. No hydronephrosis. Stomach and bowel: Unremarkable. No obstruction. No mucosal thickening. PELVIS: Appendix: Normal appendix (4: 120). Bladder: The wall appears mildly thickened however this is likely related to the lack of distention. Reproductive: Unremarkable as visualized. ABDOMEN and PELVIS: Intraperitoneal space: No free air. Unchanged mild to moderate volume ascites. Bones/joints: Unremarkable. Soft tissues: Mild anasarca. Vasculature: No abdominal aortic aneurysm. Lymph nodes: No enlarged lymph nodes. IMPRESSION: 1. Peripancreatic inflammatory changes are again noted. Correlate with amylase and lipase for recurrent pancreatitis. 2. Slight interval decrease in size of an organized fluid collection adjacent to the pancreatic tail. No new organized fluid collection identified. 3. No other new acute process identified within the abdomen or pelvis. 4. Cirrhosis with evidence of portal hypertension, as above. 5. Stable large bilateral pleural effusions with lower lobe compressive atelectasis. 6. Unchanged mild to moderate volume ascites. (2) Alcoholic cirrhosis of liver with ascites Didier Mittal Jan 03, 2021 12:41
--- NOTE | 2021-01-03 16:15 | NUR ---
NURSE NOTES: Pt in stable condition. Pt tolerated soft diet well and no N/V. Provided discharge instructions and Rx. Pt verbalized understanding. All belongings were accounted for. IV and ID band removed. Pt was escorted to downstair by nurse and picked up by aunt.
--- NOTE | 2021-01-03 23:44 | General Progress Note ---
Subjective Allergies: Coded Allergies: No Known Allergies (Unverified , 12/15/20) Subjective Feels OK less pain tolerating diet advised to f/u at a liver transplant center after d/c Objective Last 24 Hour Vital Signs Date Time Temp Pulse Resp B/P (MAP) Pulse Ox O2 Delivery O2 Flow Rate FiO2 01/03/21 11:54 99.0 81 17 117/64 (81) 96 01/03/21 09:00 Room Air 01/03/21 08:41 97.9 01/03/21 08:00 98.6 84 17 114/81 (92) 96 01/03/21 08:00 98.6 84 17 114/81 (92) 96 01/03/21 04:00 97.9 72 17 107/80 (89) 97 01/03/21 03:38 98.4 Intake and Output 01/02/21 01/03/21 19:00 07:00 Output Total 2100 ml Balance -2100 ml Output Urine Total 2100 ml # Voids 4 Laboratory Tests 01/03/21 05:00: White Blood Count 3.3L, Red Blood Count 2.74L, Hemoglobin 9.2L, Hematocrit 27.6L , Mean Corpuscular Volume 101H, Mean Corpuscular Hemoglobin 33.5H, Mean Corpuscular Hemoglobin Concent 33.3, Red Cell Distribution Width 12.9, Platelet Count 119L, Mean Platelet Volume 6.2L, Neutrophils (%) (Auto) , Lymphocytes (%) (Auto) , Monocytes (%) (Auto) , Eosinophils (%) (Auto) , Basophils (%) (Auto) , Differential Total Cells Counted 100, Neutrophils % (Manual) 56, Lymphocytes % (Manual) 33, Monocytes % (Manual) 8, Eosinophils % (Manual) 2, Basophils % (Manual) 1, Band Neutrophils 0, Platelet Estimate DecreasedL, Platelet Morphology Normal, Macrocytosis 1+, Sodium Level 139, Potassium Level 3.7, Chloride Level 109H, Carbon Dioxide Level 24, Anion Gap 7, Blood Urea Nitrogen 4L, Creatinine 0.6, Estimat Glomerular Filtration Rate > 60, Glucose Level 99, Calcium Level 8.0L, Amylase Level 466H, Lipase > 2000H Height (Feet): 6 Height (Inches): 0.00 Weight (Pounds): 170 Objective NCAT supple CTA RR abd soft ND, less epigastric TTP no edema Assessment/Plan Assessment/Plan: Assessment - EtOH cirrhosis - EtOH hepatitis - Recurrent pancreatitis - pancreatic pseudocyst - portal HTN - pleural effusions Recommendations - Full liquids - follow labs and exam - trental trial - outpatient referral to liver transplant center Ankit Berrios MD Jan 03, 2021 23:43
--- NOTE | 2021-01-08 16:47 | Discharge Summary ---
Discharge Summary Discharge Summary _ Date of admission: 12/30/2020 Date of discharge: 01/03/[address] Lott History of Present Illness and Brief Hospital Course Mr. Wetzel is a 30-year-old male with past medical history of alcoholic liver disease with ascites and previous pancreatitis, who presented to the ED for evaluation of left lower quadrant pain x2 days. Patient was a heavy drinker and relapsed several times in the past. He had been sober for 3 months per patient. Patient reported that his abdominal pain was not typical because his previous abdominal pains were located. Patient had elevated lipase. Abdomen/pelvis CT peripancreatic inflammatory changes, cirrhosis with portal hypertension, pleural effusions, and mild to moderate volume ascites. Patient was admitted to the hospital for further management. Patient was evaluated by the surgery team who found no indication for acute surgical intervention at that time. Patient was advised to follow-up at a liver transplant center upon discharge. Throughout his hospitalization, patient was provided with conservative management. Patient's condition improved throughout his hospitalization. Patient was medically stable for discharge and was discharged home on 01/03/2021. Patient was strongly advised to abstain from alcohol consumption. Consultants: Surgery Dr. Mittal Gastroenterology Dr. Berrios Hematology oncology Dr. Jessica Discharge Condition Improved and stable Final diagnoses Alcoholic liver cirrhosis Alcoholic hepatitis Recurrent pancreatitis Pancreatic pseudocyst Portal hypertension Pleural effusions Ascites Pancytopenia Jaundice Hypoalbuminemia Severe malnutrition I have been assigned to dictate discharge summary for this account. I was not involved in the patient's management Abdi Zhang Jan 08, 2021 16:47
== END 2021-01-03 16:13 | disposition home or self-care (01) | DRG 280 ==
LOC: EMR 21:35 → 4E 22:43 → EDBEDREQ 23:29
DX: K70.31 Alcoholic cirrhosis of liver with ascites (principal); K85.20 Alcohol induced acute pancreatitis without necrosis or infection; D61.818 Other pancytopenia; E43 Unspecified severe protein-calorie malnutrition; K86.3 Pseudocyst of pancreas; D64.9 Anemia, unspecified; F10.11 Alcohol abuse, in remission; K76.6 Portal hypertension
CPT/HCPCS: 36415; 74176; 80048; 80053; 81003; 82105; 82140; 82150; 82248; 83690; 85007; 85025; 96361; 96374; 96375; 99285; J2405